=== PATIENT | female | born 1935 | race Caucasian/White ===

== ENCOUNTER 2022-11-21 11:35 | Emergency (ER) | payer MEDICARE, BC, SELFPAY ==
[2022-11-21 11:59] VITALS: BP 171/90; PULSE 58; RESP 18; TEMP 36.9; O2SAT 97; BMI 28.3
[2022-11-21 12:16] LABS: Appearance Urine Cloudy (Clear); Bilirubin Urine Negative (Negative); Blood Urine 3+ (Negative); Color Urine Yellow (Yellow); Glucose Urine Negative (Negative); Ketones Urine Negative (Negative); Leukocyte Esterase Urine 3+ (Negative); Nitrite Urine Positive (Negative); Protein Urine 3+ (Negative); Specific Gravity Urine >= 1.030 (1.000-1.030); Urobilinogen Urine 0.2 (0.2-1.0)
--- NOTE | 2022-11-21 12:18 | ED.GENADULT ---
HPI - General Adult General Chief complaint: Urogenital Problems, Female Stated complaint: Tampon stuck in vagina Time Seen by Provider: 11/21/22 11:38 Source: patient and family Mode of arrival: ambulatory Limitations: no limitations History of Present Illness HPI narrative: 87-year-old female coming in today concerned about a retained tampon. Patient states that she has been having bleeding from her either bladder or vagina, she is unaware. It was suggested to her that she placed a tampon in to see if there would be any blood on the tampon. Patient states that she placed a tampon in 2 days ago and has not been able to retrieve it. She states that she saw ?a few tampon strings on the toilet paper after she wiped, but she had not looked in the toilet to see if she saw a tampon. She states that after she placed a tampon she continued to have bleeding which she sees as spots on the pads that she wears. She does complain of suprapubic discomfort but that started prior to her inserting the tampon. She denies any vaginal discharge or strong odor. No fevers or chills. Patient does state that she has multiple UTIs and recurrent UTIs. She has been on many antibiotics but has not had anything for about a month. Related Data Previous Rx's Medication Instructions Recorded cephalexin 500 mg capsule 500 mg PO TID 5 days #15 caps 11/21/22 Allergies Allergy/AdvReac Type Severity Reaction Status Date / Time bupropion [From Wellbutrin] Allergy Verified 11/21/22 11:59 Review of Systems Status of ROS: Reports: 10 or more systems reviewed and unremarkable except as noted in History and below [facility] Social History Smoking Status: Never smoker Do you use any of these nicotine containing products: None Second hand tobacco smoke exposure: No How often do you have a drink containing alcohol: 2-4 times a month How many standard drinks containing alcohol do you have on a typical day: 1 or 2 AUDIT-C Alcohol total score: 2 Non-prescribed substance use: denies use service: No Exam Narrative: Exam Narrative: Well-nourished well-developed patient in no acute distress. Alert and oriented. Answers questions appropriately. Mood and affect are appropriate. Thoughts are goal oriented and rational. No tangential or magical thinking noted. Patient speaks in full sentences without needing to catch their breath. HEENT: Normocephalic atraumatic. Pupils are equally round reactive to light. Extraocular muscles are intact. Conjunctivae are moist without any icterus noted. Abdomen: Soft and nontender nondistended with normal bowel sounds. Extremities: Bilateral lower extremities are without edema. Skin: Well perfused without any obvious rashes. : Normal external female genitalia, she does have vaginal atrophy. Vaginal introitus is very tight. I can insert only 1 finger into the vaginal introitus I can feel all vaginal kaufman as well as her cervix. I cannot reach in the posterior cervical fornix. I do not feel any foreign objects in the vaginal canal. Const: Vital Signs, click to edit/add: Vital Signs - 24 hr 11/21/22 11:59 Temperature 98.4 F Pulse Rate [Pulse Oximeter] 58 L Respiratory Rate 18 Blood Pressure [Ri ght Forearm] 171/90 H Pulse Oximetry 97 Oxygen Delivery Me thod Room Air Course Course Hospital Course: 87-year-old female with a question of a retained tampon. I think that the tampon likely fell out as I do not feel any foreign objects in the vaginal canal today. We did discuss placement of the speculum however patient will likely need sedation for this as the vaginal introitus is very small. There is a very small possibility that it stuck in the posterior fornix but this would be unlikely. We discussed that if she experiences vaginal discharge, pain with strong odor she has follow-up with her OBGYN. As far as her suprapubic discomfort and hematuria, her urinalysis looks very positive for a UTI. At this time will go ahead and start her on Keflex. She will follow up with her primary care provider this coming week. Vital Signs Vital signs: Initial Vital Signs Temperature 98.4 F 11/21/22 11:59 Temperature Source Temporal Artery Scan 11/21/22 11:59 Pulse Rate 58 L 11/21/22 11:59 Pulse Rhythm 11/21/22 11:59 Respiratory Rate 18 11/21/22 11:59 Blood Pressure 171/90 H 11/21/22 11:59 Blood Pressure Mean 117 11/21/22 11:59 Blood Pressure Position Supine 11/21/22 11:59 Pulse Oximetry 97 11/21/22 11:59 Oxygen Delivery Method 11/21/22 11:59 Vital Signs Temperature 98.4 F 11/21/22 11:59 Pulse Rate 58 L 11/21/22 11:59 Respiratory Rate 18 11/21/22 11:59 Blood Pressure 171/90 H 11/21/22 11:59 Pulse Oximetry 97 11/21/22 11:59 Oxygen Delivery Method 11/21/22 11:59 Temperature 98.4 F 11/21/22 11:59 Pulse Rate 58 L 11/21/22 11:59 Respiratory Rate 18 11/21/22 11:59 Blood Pressure 171/90 H 11/21/22 11:59 Pulse Oximetry 97 11/21/22 11:59 Oxygen Delivery Method 11/21/22 11:59 Medical Decision Making MDM Narrative Medical decision making narrative: 87-year-old female with concerns about a retained tampon-I did not find any foreign objects in the vaginal canal. Hematuria-I do think that this patient has a UTI given her hematuria and suprapubic discomfort. Will treat with Keflex. Lab Data Lab results reviewed: Yes I reviewed the patient's lab results Labs: Lab Results 11/21/22 Range/Units 12:04 Urine Color Yellow (Yellow) Urine Appearance Cloudy A (Clear) Urine pH 7.0 (5.0-8.5) Ur Specific [place] >= 1.030 (1.000-1.030) Urine Protein 3+ A (Negative) Urine Glucose (UA) Negative (Negative) Urine Ketones Negative (Negative) Urine Blood 3+ A (Negative) Urine Nitrite Positive A (Negative) Urine Bilirubin Negative (Negative) Urine Urobilinogen 0.2 (0.2-1.0) Ur Leukocyte Esterase 3+ A (Negative) Urine RBC 25-50 A (0-2) Urine WBC >100 A (0-5) Ur Squamous Epith Cells Moderate A (None-Few) Urine Bacteria Many A (None) Discharge Plan Discharge Clinical Impression: Urinary tract infection Patient Disposition: Home, Self-Care Condition: Stable Additional Instructions: Take antibiotics as prescribed. Follow-up with her primary care provider this coming week. Follow-up with OBGYN if you develop any vaginal discharge or strong odor. Prescriptions: New cephalexin 500 mg capsule 500 mg PO TID 5 Days Qty: 15 0RF Stand Alone Forms: [email or web address] Info Instructions
[2022-11-21 12:35] LABS: Bacteria Urine Many; RBC Urine 25-50 (0-2); Squamous Epithelial Cell Urine Moderate (None-Few); WBC Urine >100 (0-5)
--- NOTE | 2022-11-25 03:09 | ED.NURSE ---
Patient called and left [facility] with part time receptionist wondering if her urine culture results indicated she needed a new anbx. Dr. Zaman to f/u with patient.
== END 2022-11-21 13:05 | disposition home or self-care (01) ==
PROVIDERS: Emergency Provider Family Medicine
DX: N39.0 Urinary tract infection, site not specified (principal)
CPT/HCPCS: 81001; 87086; 87186; 99283; 99284

== ENCOUNTER 2024-09-10 15:15 | Emergency (ER) | payer MEDICARE, BC, SELFPAY ==
[2024-09-10 15:24] VITALS: BP 141/116; PULSE 114; RESP 16; TEMP 36.4; O2SAT 95; BMI 26.6
--- NOTE | 2024-09-10 15:31 | ED.GENADULT ---
HPI - General Adult General Chief complaint: Back Injury/Pain Stated complaint: right side sciatica pain Time Seen by Provider: 09/10/24 15:33 History of Present Illness HPI narrative: Pt reports that new lower back pain started yesterday. Starts in Right buttocks area and shoots down right leg. Rates pain 4/10 currently. Worse with movement and position change . Pt suspects sciatica. Pt has known a-fib , is on thinners. 89-year-old woman presenting to the emergency department with pain that she suspects is radiating down her leg, right side from her back. No known trauma. Maybe 3 days ago started to have some pain that seems to go down the middle of her ?maggie radiating down the back of her thigh she thinks past her knee involving her calf and then to her ankle. Little unsure as to whether it is a truly the back of the leg but it feels relatively continuous. She describes shooting and constant pain. It is worse when she goes to stand up and walk and as she walks it might faded a little bit but still present. Sitting down at in current position on the bed is not experiencing much in the way of pain. It is really worse with movements, ambulating. She does get spasms of the muscles of her upper back historically and is unsure whether not this might be related. Does not have known disc disease in the back. Has not tried any particular treatments. Related Data Home Medications ?Medication ?Instructions ?Recorded ?Confirmed apixaban 2.5 mg tablet (Eliquis) 2.5 mg PO BID 09/10/24 09/10/24 cyclobenzaprine 10 mg tablet 10 mg PO 3XD 09/10/24 09/10/24 methimazole 5 mg tablet 5 mg PO DAILY 09/10/24 09/10/24 verapamil 120 mg tablet,extended 120 mg PO DAILY 09/10/24 09/10/24 release Allergies Allergy/AdvReac Type Severity Reaction Status Date / Time bupropion (From Wellbutrin) Allergy Verified 11/21/22 11:59 Review of Systems Status of ROS: Reports: 6 or more systems reviewed and unremarkable except as noted in History and below PFSH PFSH Social History Smoking Status: Never smoker Do you use any of these nicotine containing products: None Second hand tobacco smoke exposure: No How often do you have a drink containing alcohol: 2-4 times a month How many standard drinks containing alcohol do you have on a typical day: 1 or 2 AUDIT-C Alcohol total score: 2 Non-prescribed substance use: denies use service: No Exam Narrative: Exam Narrative: Pleasant. NAD. Transitions carefully, gingerly from the bed. Is breathing easily. There is some mild kyphosis of the upper back. No midline back tenderness. No SI joint area tenderness. She does not have buttock/piriformis area pain. There is clearly pain to palpation about the right greater trochanter. Some pain in the area of the pes anserine bursa pes anserine bursa of the right knee. Does not have pain otherwise along the IT band. Strong and equal patellar DTRs bilaterally. Good strength to extension of the leg and flexion of the thigh. Negative straight leg raise. Good strength to dorsiflexion of the ankle. Palpable crepitus to extension flexion of the left knee ?my bad knee?. Const: Vital Signs, click to edit/add: Vital Signs - 24 hr 09/10/24 15:24 Temperature 97.6 F Pulse Rate [Pulse Oximeter] 114 H Respiratory Rate 16 Blood Pressure [Ri ght Upper Arm] 141/116 H Pulse Oximetry 95 Oxygen Delivery Me thod Room Air Documenting provider has reviewed patient's vital signs: yes Course Vital Signs Vital signs: Initial Vital Signs Temperature 97.6 F 09/10/24 15:24 Temperature Source Temporal Artery Scan 09/10/24 15:24 Pulse Rate 114 H 09/10/24 15:24 Pulse Rhythm Irregular 09/10/24 15:24 Respiratory Rate 16 09/10/24 15:24 Blood Pressure 141/116 H 09/10/24 15:24 Blood Pressure Mean 124 H 09/10/24 15:24 Blood Pressure Position Sitting 09/10/24 15:24 Pulse Oximetry 95 09/10/24 15:24 Oxygen Delivery Method Room Air 09/10/24 15:24 Vital Signs Temperature 97.6 F 09/10/24 15:24 Pulse Rate 114 H 09/10/24 15:24 Respiratory Rate 16 09/10/24 15:24 Blood Pressure 141/116 H 09/10/24 15:24 Pulse Oximetry 95 09/10/24 15:24 Oxygen Delivery Method Room Air 09/10/24 15:24 Temperature 97.6 F 09/10/24 15:24 Pulse Rate 114 H 09/10/24 15:24 Respiratory Rate 16 09/10/24 15:24 Blood Pressure 141/116 H 09/10/24 15:24 Pulse Oximetry 95 09/10/24 15:24 Oxygen Delivery Method Room Air 09/10/24 15:24 Medical Decision Making MDM Narrative Medical decision making narrative: I would suspect greater trochanteric bursitis and some degree of iliotibial band syndrome as indicated by tenderness in the pes anserine bursal area. Does not appear to be clearly having sciatic type pain. This may have been exacerbated by compensatory movements from the left knee. As I begin to discuss this diagnosis and likely course of treatment, she wonders, as per conversation with her son, whether not on x-ray would be warranted. We can proceed with a right hip x-ray as this is the reproducible area of discomfort. I suppose it is possible there is some sort of an avulsion or more subtle fracture otherwise. Pending imaging at this time. X-rays of the right hip and pelvis reviewed by me show osteoarthritic changes, osteopenia and some degree of constipation/well formed stool. Do not see acute bony abnormality or fracture. Returned to discuss these images with Komal and her daughter with whom she lives. I believe trochanteric bursitis and iliotibial band syndrome in some form is most likely explanation for pain peer More difficult to treat given anticoagulation status with Eliquis See patient discharge plan for further discussion. Medical Records Medical records reviewed: Yes I reviewed the patient's medical records Discharge Plan Discharge Clinical Impression: Leg pain, right, Bursitis, trochanteric Additional Instructions: See handout on some stretches that you can begin for trochanteric bursitis. Note that this overlaps somewhat with is the tibial band syndrome. I look at this as a continuum. As I said you also seem to have some inflammation in the area of the pes anserine bursa. To try to take some of the pressure off, consider using a walker more regularly. I would message your primary care provider potentially for a referral to physical therapy as they can also be helpful. I like those ice bags with screw top lids. Can buy 9 in [employer] in [employer]. Fill with ice and water. Try to ice your hip 2-3 times daily over the next few days at least. While I am unsure of the effect in this diagnosis, as an anti-inflammatory that you could take considering your anticoagulation status, prednisone might be helpful. I am prescribing this prednisone and a small quantity of Roxton from [employer]. Keep in mind that each tablet of Roxton contains 325 mg of acetaminophen. You can generally take up to 1000 mg of acetaminophen per dose. Roxton also contains hydrocodone, an opiate that can make you prone to being fatigued, weak and/or constipated. If you take Roxton, on those days consider taking 1-2 tablets senna containing product to keep the bowels moving. Prescriptions: No Action verapamil 120 mg tablet extended release 120 mg PO DAILY cyclobenzaprine 10 mg tablet 10 mg PO 3XD methimazole 5 mg tablet 5 mg PO DAILY Eliquis 2.5 mg tablet 2.5 mg PO BID Follow Up/Referrals: Provider,Not a Local [Primary Care Provider] - Stand Alone Forms: [employer] Info Instructions
--- NOTE | 2024-09-10 15:45 | CRLHL7_ITS ---
For Patients: As a result of the Century Cures Act, medical imaging exams and procedure reports are released immediately into your electronic medical record. You may view this report before your referring provider. If you have questions, please contact your health care provider. INDICATION: Great trochanter pelvic hip pain, Greater trochanteric area pain TECHNIQUE: Pelvis radiograph, Hip radiograph 3 views right COMPARISON: None FINDINGS: Bone: No acute fractures or aggressive bone lesions are identified. Moderate diffuse osteopenia is noted. Joint: The hip joints are unremarkable. The visualized sacroiliac joints are unremarkable in appearance. The pubic symphysis is normal in appearance. Soft tissue: Unremarkable. No radiopaque foreign bodies are seen. IMPRESSION: 1. No acute osseous injuries or abnormalities are noted. Dictated by: Nehemiah Read MD @ 09/10/2024 16:29:05 (Electronically Signed)
--- OUTSIDE RECORDS SUMMARY | 2024-09-10 16:18 | XMS_ITS | Clinical Summary ---
Author Organization [facility] Address [address] [place] [address] Care Team Providers Care Chief Optometry Service Name Role Phone Elsewhere, Pcp Primary Care Provider Unavailabl e Source Comments Patient records contain information from all sites at [facility]. For routine questions regarding patient records, call [phone] during business hours, M-F 8:00 AM - 5:00 PM Central Time. Record requests for emergency care only can be directed to [phone] at any time.[facility] Allergies Active Allergy Reactions Criticality Noted Date Comments Bupropion Hcl Other (see comments) 08/31/2022 Shaking Ciprofloxacin GI intolerance Low 02/17/2023 Asomnia Other reaction(s): Insomnia Medications * This document contains information received from the source organization and may not represent a complete record from that organization. estradioL (ESTRACE) 0.1 mg/g (0.01%) vaginal cream PLACE 2 GRAMS VAGINALLY 2 TIMES A WEEK 1 Active ipratropium (ATROVENT) 21 mcg (0.03 %) nasal spray Administer 1 spray into each nostril daily. Use prior to the major meal of the day 90 mL 3 2 Active Additional Information Patient taking differently:1 spray each nostrilAs needed, Use prior to the major meal of the day, Informant: Child, Reported on 08/06/2024 pregabalin (LYRICA) 25 mg capsule Take 25 mg by mouth as needed. Active acetaminophen (TYLENOL) 500 mg capsule Take 1,000 mg by mouth as needed for pain. Active DME CPAPIndications :Apnea Sleep Obstructive DME Order 1 each 2 Active Additional Information Patient taking differently: (No instructions reported), Informant: Self, Reported on 08/06/2024 methenamine (HIPREX) 1 gram tablet Take 1 g by mouth 2 (two) times a day. 2 Active magnesium 200 mg tablet Take 200 mg by mouth as needed. Active calcium citrate/vitamin D3 (CITRACAL + D ORAL) Take 1 tablet by mouth 2 (two) times a day. Calcium Citrate 400 mg-Vitamin D 500 units per tablet. Active cranberry fruit extract (THERACRAN ORAL) Take 500 mg by mouth daily. Active Lactobacillus acidophilus (PROBIOTIC ORAL) Take 1 tablet by mouth 2 (two) times a day. Garden of Life Probiotic Urinary Tract tablet. Active ascorbic acid (CHEWABLE VITAMIN C ORAL) Take 4,000-6,000 mg by mouth 2 (two) times a day. Take 8-12 gummy chews twice daily. Total dose of 4,000-6,000 mg daily. Alternates with a harder capsule form of the same dosage Active lidocaine (SALONPAS) 4 % adhesive patch,medicated Apply 1 patch topically as needed (upper back pain). Active fluticasone propionate (FLONASE) 50 mcg/actuation nasal sprayIndication s:Drip Post Nasal,Chronic Cough Administer 2 sprays into each nostril daily. 16 g 11 3 Active Additional Information Patient taking differently:2 spray each nostrilAs needed, Informant: Child, Reported on 08/06/2024 apixaban (ELIQUIS) 2.5 mg tablet Take 1 tablet (2.5 mg total) by mouth 2 (two) times a day. 60 tablet 3 3 Active methIMAzole (TAPAZOLE) 5 mg tablet Take 1 tablet (5 mg total) by mouth daily. 90 tablet 3 3 Active Additional Information Patient taking differently: 2.5 mgoral,(No frequency reported), 2.5MG 2X TIMES WEEKLY, Informant: Self, Reported on 02/24/2024 nadoloL (CORGARD) 40 mg tablet Take 1 tablet (40 mg total) by mouth daily. 90 tablet 3 3 Active LORazepam (ATIVAN) 0.5 mg tablet Take 0.5 mg by mouth 3 (three) times a day as needed. 3 Active cyclobenzaprine (FLEXERIL) 10 mg tablet Take 10 mg by mouth 3 (three) times a day as needed for muscle spasms. 3 Active light mineral oil/min oil/PF (RETAINE MGD, PF, OPHT) Administer 1 drop into affected eye(s) daily. Active vibegron (Gemtesa) 75 mg tablet Take 75 mg by mouth. 3 Active verapamiL (Calan-SR) 120 mg ER tablet TAKE 1 TABLET(120 MG) BY MOUTH DAILY 90 tablet 3 4 Active estradioL (Estrace) 0.1 mg/g (0.01%) vaginal cream Insert 1 g into the vagina 2 (two) times a week. 42.5 g 4 4 06/18/20 25 Active trospium (Sanctura) 20 mg tablet Take 1 tablet (20 mg total) by mouth 2 (two) times a day before morning and evening meals. 180 tablet 3 4 06/15/20 25 Active Additional Information Patient not taking.Reported on 08/06/2024 Hospital, Clinic, or Other Facility Administered Medication Ordered Dose Route Frequency Start Date End Date Status estrogens (conjugated) 1 g (0.625 mg/gram) vaginal cream 1 g (PREMARIN)Indications:Infec tion Urinary Tract Recurrent 1 g vaginal Once 08/21/2021 Active Active Problems Patient Care Coordination No te Formatting of this note migh t be different from the original. [facility] Colon Cancer Screening Last colon screen: Colonoscopy Year: 2015 First Degree Relative with Cancer: No Prep: Unknown - previous procedure completed at [facility] but prep used is unavailable Complex Suite: Unknown Results: Unknown Next Colon screen: N/A Breast Cancer Screening Last mammogram: 2022 Screening Mammogram Results: Normal Future supplemental Imaging: No Increased Breast Density: No History: Cancer First Degree Relative with Cancer: Unknown Next Breast Screen: Annual Mammogram Cervical Cancer Screening Last Pap: Unknown HPV Status: Unknown History of Abnormal Pap within the past 10 years?: Unknown Hysterectomy: Unknown KEVIN (Diethylstilbestrol) exposure: Unknown Next Pap: Unknown Bone Mineral Density Last BMD: Date: 2022 - Impression: Osteoporosis Next BMD: 2023 Cardiology: Last EC Next EC Lipoprotein (a): Not completed Coronary Calcium Scoring completed: Completed HIV Completed in 2015 HCV Completed in 2016 Problem Noted Date Diagnosed Date Keratoconjunctivitis Sicca Bilateral 08/22/2023 Meibomian Gland Dysfunction Right Eye Upper And Lower Eyelid 08/22/2023 Dry Eye Syndrome Bilateral 08/22/2023 Blepharitis Left 06/02/2022 Impaired Contrast Sensitivity 09/26/2020 Irritant Contact Dermatitis Due To Drugs In Contact With Skin 03/22/2019 Malignant Neoplasm Of Unspec ified Site Of Laterality Unknown Female Breast 12/18/2018 Overview (12/18/2018): Overview: has left mast and chemo, fine since Osteoporosis 12/01/2018 Overview (04/13/2024): DIAGNOSIS: Initial bone density 1997. FRACTURE: Right wrist fracture approximately 1990 Right elbow fracture around age 32 Hair line ankle fracture 2015 TREATMENT: Alendronate 10 mg daily 1997- discontinued due to bone pain Evista 60 mg daily [id number] Alendronate 35 mg weekly [id number] Alendronate 70 mg weekly 2005 -April 2011 Drug holiday April 2011 -June 2016 Alendronate 70 mg weekly June 2016-June 2021 Drug holiday 2508-9213 Reclast 04/06/23 PERTINENT ADDITIONAL MEDICAL HISTORY: Breast cancer age 42, s/p left mastectomy. No history of oral glucocorticoid therapy. Reports 2 glasses of wine per month. No history of tobacco use. 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 Komal presents with daughter Maryjo for follow up of osteoporosis, history summarized as above per last visit with Dr. Mac in 2019 ?? She has not had recurrent fractures in over 20 years; she is tolerating and compliant with Fosamax weekly ?? Her labs show appropriate calcium, vitamin D and Cr ?? We reviewed her BMD results, which are of bilateral hips, overall stable to minimally decreased, with lowest T score stable left hip -2.5 ?? We reviewed options to continue with oral Fosamax through this year then take drug holiday as it will complete her 5 year course vs drug holiday now ?? We discussed that there is also an IV Reclast available with assured absorption, that may offer convenience benefit and may help improve the BMD slightly as opposed to the slight decrease ?? At completion of this year's therapy (technically June 2021), she can certainly go back on drug holiday again and repeat BMD in 2 years ?? She is interested in IV Reclast as there are little 'down sides' to it, and may have even better absorption and hence efficacy may be improved over oral; though I suggested she has certainly done well with oral and has not fractured, thus I am reassured with Fosamax as well Plan ?? Continue 5th year of therapy through this year, then OK to take drug holiday ?? She would like to think about oral vs IV options before making final decision; we discussed risks with IV if she elects this, overall well tolerated ?? 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/27/2018 Incontinence Urinary Stress Female 02/09/2018 Hemorrhoids 11/18/2017 Impaired Fasting Glucose 10/26/2017 Caries Dental Nonrestorable 06/28/2017 Primary Osteoarthritis Knee Bilateral 12/21/2016 Atrophy Pelvic Floor 12/20/2016 Dysuria 12/20/2016 Ptosis Eyelid Bilateral 12/16/2016 Hypothyroidism Primary 10/19/2016 Dispersion Macular Pigment 07/28/2016 Glaucoma Open-Angle Mild Stage 06/15/2016 Edema Macular Cystoid Right 05/13/2016 Glaucoma Low Tension Mild Stage Bilateral 2015 Intraocular Lens Implant Status Post 04/15/2016 Hypertension Essential Primary 01/28/2016 Urinary Tract Infection (UTI)/Bacteriuria NOS Overview (12/13/2022): Diagnosis Maintenance Updates Urinary Urge Incontinence 01/06/2016 Keratosis Actinic 12/23/2014 Hallux Rigidus Right 12/20/2013 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 Cancer Skin Basal Cell Personal History 12/19/19 14 Keratosis Seborrheic 12/19/2013 Presbyopia 02/26/2013 Talipes Planovalgus 02/26/2013 Goiter Multinodular Nontoxic 07/06/2012 Cyst Renal 04/20/2011 Dysphonia 11/25/2010 Hoarseness 10/26/2010 Insomnia 04/28/2010 Bursitis Trochanteric Left 03/05/2010 Kyphosis Acquired 01/23/2010 Dysfunction Posterior Tibial Tendon 02/06/2009 Vaginitis Atrophic 06/02/2005 Hole Retinal Without Detachment Left 12/10/2004 Sleep Related Laryngospasm 12/09/2004 Apnea Sleep Obstructive 11/02/2004 Central Sleep Apnea Syndrome 11/02/2004 Hyperlipidemia 04/27/2004 Cancer Breast Personal History 04/27/2004 Osteopenia 04/27/2004 Abnormal Gait Non Orthopedic Resolved Problems Problem Noted Date Diagnosed Date Resolved Date Combined Forms Age Related Cataract Left Eye 0 12/25/2020 Overview (09/11/2020): Added automatically from request for surgery [id number] Age Related Nuclear Cataract Left Eye 2018 12/25/2020 Cataract Senile Mature 03/03/201612/25 Cataract 11/14/2009 12/25/2020 Encounters Date Type Department Care Team Description 08/19/2024 2:00 PM CDT Infusion Department of Infusion Therapy in [address] [address] Amisha Hughes APRN, C.N.P. Osteoporosis (Primary Dx) Discharge Disposition: Home or Self Care 08/06/2024 11:30 AM CDT Clinical Communication Virtual Review in [address] [phone] Pre-visit Intake 07/19/2024 10:30 AM CDT Infusion Department of Infusion Therapy in [address] [address] Amisha Hughes APRN, C.N.P. Osteoporosis (Primary Dx) Discharge Disposition: Home or Self Care 07/13/2024 Clinical Communication Department of Ophthalmology in [address] [phone] Asmita Davies M.D. 06/24/2024 1:00 PM CDT Infusion Department of Infusion Therapy in [address] [phone] Amisha Hughes APRN, C.N.P. Osteoporosis (Primary Dx) 06/15/2024 1:00 PM CDT Comprehensive Visit Department of Orthopedic Surgery in [place], [place] [address] [place] [phone] Emil Santoyo D.P.M. Pes Planus Left (Primary Dx); Pes Planus Right; Hallux Valgus Right; Valgus Hindfoot Left; Valgus Hindfoot Right; Claw Toe Acquired Left; Claw Toe Acquired Right; Laxity Ligament 06/15/2024 11:00 AM CDT Office Visit Department of Obstetrics and Gynecology, Division of Urogynecology in [place], [place] [address] [place] [phone] Cami Ramos P.A.-C. Urinary Urge Incontinence (Primary Dx); Postmenopausal Atrophic Vaginitis; Lichen Sclerosus; Atrophy Pelvic Muscle Disuse 06/15/2024 9:30 AM CDT Procedure visit Department of Urology in [place], [place] [address] [place] [phone] Janee Ashley M.D. Meyers, Tania L, L.P.N. Incontinence Urinary Stress And Urge [N39.46] (Primary Dx); Incontinence Urinary from Last 3 Months Immunizations Name Administration Dates Next Due HZV (ZOSTAVAX) 06/16/2007 Influenza Split 08/14/2012, 8,11/02/2006, 998 Influenza TIV (IM) 11/02/2004,10/23/2001 Influenza high dose QV(65 ye ars or older) (PF) 09/03/2022 Influenza, Seasonal, Injectable 11/02/2004,10/23 PCV13 01/06/2016 PPSV23 06/15/2004 Td (Adult), adsorbed 06/15/2004 Tdap 01/06/2016 influenza trivalent high dos e (HD)(PF) 07/29/2020,10/26/2010 influenza trivalent vaccine (6 months and older)(PF) 08/06/2009 influenza vaccine quad (FLUZONE/FLUARIX) (6 months and older)(PF) 10/15/2017 Family History Medical History Relation Name Comments Migraines Daughter Lucy Coronary artery disease Father Montrell Diabetes Father Montrell Type 2 Hypertension Mother Tonie Stroke Mother Tonie Tuberculosis Mother Tonie Diabetes Son Jr. Charles Type 1 Breast cancer Neg Hx Cervical cancer Neg Hx Endometrial cancer Neg Hx Glaucoma Neg Hx Macular degeneration Neg Hx Ovarian cancer Neg Hx Uterine cancer Neg Hx Vaginal cancer Neg Hx Relation Name Status Comments Daughter Lucy Father Montrell Mother Tnoie Soto Jr. Social History Tobacco Use Types Packs/Day Years Used Date Smoking Tobacco: Never Passive Smoke Exposure: Never Smokeless Tobacco: Never Tobacco Cessation:Counseling Given: Not Answered Alcohol Use Standard Drinks/Week Comments Not Currently 0 (1 standard drink = 0.6 oz pur e alcohol) 2 glasses of wine per month [facility] [employer] Answer Date Recorded In the past 12 months has th e Hum, gas, oil, or water [employer] threatened to shut off services in your home? No 02/26/2024 Humiliation, Afraid, Rape, and Kick questionnair e Answer Date Recorded Within the last year, have y ou been afraid of your partner or ex-partner? No 01/17/2023 Within the last year, have y ou been humiliated or emotionally abused in other ways by your partner or ex-partner? No Within the last year, have y ou been kicked, hit, slapped, or otherwise physically hurt by your partner or ex-partner? No 01/17/2023 Within the last year, have y ou been raped or forced to have any kind of sexual activity by your partner or ex-partner? No 01/17/2023 Social Connection and Isolat ion Panel [NHANES] Answer Date Recorded In a typical week, how many times do you talk on the phone with family, friends, or neighbors? Three times a week 01/17/2023 How often do you get togethe r with friends or relatives? Once a week 01/17/2023 How often do you attend chur or sikhism services? More than 4 times per year 01/17/2023 Do you belong to any clubs o r organizations such as jewish groups, unions, fraternal or athletic groups, or school groups? Yes 01/17/2023 How often do you attend meet ings of the clubs or organizations you belong to? More than 4 times per year 01/17/2023 Are you , , di vorced, , never , or living with a partner? 01/17/2023 AUDIT-C Answer Date Recorded Q1: How often do you have a drink containing alc ohol? 2-4 times a month 01/17/2023 Q2: How many drinks containi ng alcohol do you have on a typical day when you are drinking? 1 or 2 01/17/2023 Q3: How often do you have si x or more drinks on one occasion? Never 01/17/2023 Overall Financial Resource Strain (CARDIA) Answe r Date Recorded How hard is it for you to pa y for the very basics like food, housing, medical care, and heating? Not hard at all 01/17/2023 PHQ-2 Answer Date Recorded PHQ-2 Score 0 02/20/2024 [facility] - Occupational Stress Questionnaire Answer Date Recorded Do you feel stress - tense, restless, nervous, or anxious, or unable to sleep at night because your mind is troubled all the time - these days? Rather much 01/17/2023 Exercise Vital Sign Answer Date Recorde d On average, how many days pe r week do you engage in moderate to strenuous exercise (like a brisk walk)? 0 days 02/23/2024 On average, how many minutes do you engage in exercise at this level? 0 min 02/23/2024 Hunger Vital Sign Answer Date Recorded Within the past 12 months, y ou worried that your food would run out before you got the money to buy more. Never true 02/26/20 24 Within the past 12 months, t he food you bought just didn't last and you didn't have money to get more. Never true 02/26/2024 PRAPARE - Transportation Answer Date Re corded In the past 12 months, has l ack of transportation kept you from medical appointments or from getting medications? No 02/12 In the past 12 months, has l ack of transportation kept you from meetings, work, or from getting things needed for daily living? No 02/26/2024 Depression Answer Date Recor ded PHQ-9 Total Score (max 27) 4 03/02 Nutrition Answer Date Recorded On average, how many serving s of fruits and vegetables do you eat per day (serving size is equal to 1 cup or approximately the size of a tennis ball)? 0-2 02/23/2024 Dental Answer Date Recorded Dental: Regular Dentist Yes 08/19/20 Employment Answer Date Recorded Employment status Employed and actively working without restrictions 02/23/2024 Housing Stability Answer Date Recorded What is your living situation today? I have a [facility] place to live 02/26/2024 Education Answer Date Recorded What is the highest level of school you have completed or the highest degree you have received? 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 Gender Identity Female 03/24/2018 4:51 PM CDT Sexual Orientation Straight 03/24/2018 4: 51 PM CDT Last Filed Vital Signs Vital Sign Reading Time Taken Comments Blood Pressure 135/62 08/19/2024 2:14 PM CDT Pulse 66 08/19/2024 2:14 PM CDT Temperature 36.5 ??C (97.7 ??F) 08/19/2024 2:14 PM CD T Respiratory Rate 18 08/19/2024 2:14 PM CDT Oxygen Saturation 97% 02/25/2023 2:27 PM CDT Inhaled Oxygen Concentration - - Weight 70.8 kg (156 lb 1.4 oz) 04/20/2024 2:16 P M CDT Height 163.3 cm (5' 4.29) 04/20/2024 2:56 PM CD T Body Mass Index 26.55 04/20/2024 2:16 PM CDT Plan of Treatment Upcoming Encounters Date Type Department Care Team (Latest Contact Info) Description 09/20/2024 3:00 PM HOTHOUSE WORKER Infusion Department of Infusion Therapy in [place], [place] [address] [place] [address] [place] [address] Amisha Hughes, SOFTWARE DEVELOPMENT ANALYST, C.N.P. [address] [place] [address] 09/27/2024 9:15 AM HOTHOUSE WORKER Ancillary Procedure Department of Ophthalmology in [place], [place] [address] [place] [phone] Asmita Davies M.D. [address] [place] [phone] 09/27/2024 9:45 AM HOTHOUSE WORKER Ancillary Procedure Department of Ophthalmology in [place], [place] [address] [place] [phone] Asmita Davies M.D. [address] [place] [phone] 09/27/2024 10:00 AM HOTHOUSE WORKER Office Visit Department of Ophthalmology in [address] [phone] Asmita Davies M.D. [address] [place] [phone] 09/27/2024 1:00 PM HOTHOUSE WORKER Office Visit [facility] in [address] [phone] Oh Mckeon APRN, C.N.P., M.S.N. [address] [place] [phone] 10/18/2024 1:00 PM HOTHOUSE WORKER Comprehensive Visit Department of Obstetrics and Gynecology in [address] [phone] Teresa Espitia APRN, C.N.P., D.N.P. [address] [place] [phone] Health Maintenance Due Date Last Done Comments Zoster Vaccines (1 of 2) 08/11/2007 06/16/2007 RSV vaccine - (32-36 weeks) or 60+ years (1 - 1-dose 75+ series) 2012 COVID-19 Vaccine ( season) 2024 09/03/2022, 11/11/2021, 01/12/2021, Additional history exists Influenza Vaccine (#1) 2024 2, 07/29/2020, 10/15/2017, Additional history exists Fasting Glucose for Diabetes Screening 02/26/2025 02/27/2024, 02/27/2024, 01/11/2023, Additional history exists DTaP,Tdap,and Td Vaccines (2 - Td or Tdap) 01/06/2026 01/06/2016, 06/15/2004 Pneumococcal vaccine (65+ years) Completed 01/06/2016, 06/15/2004 Fall Risk Screen (Annual) Completed 08/19/2024 HPV Vaccines Aged Out No longer eligi ble based on patient's age to complete this topic Medical Devices Implanted Type Area Instrument Technician Device Identifier Shelf Expiration Date Model / Serial / Lot Conversions - Default Historical Implant Device Implanted:12/23 (Quantity not on file) Hardware e.g. pins/screws /rods Right: Wrist Description:Body Location - Wrist R. Device Status Text - Hardware. Ocular Lens Ocular Lens Right: Eye Description:Lens implant, se parate from the cataract lens. Lens Ja Ac 6.0 X 18.50 - Guillory [id number] Implanted:Qty: 1 on 04/14/2016 Ocular Lens Right: Other/Legacy - See Implant Description Ja Sesamea Description:Device Manufactu rer - Ja Surgical. Body Location - Other. Right. Device Status Text - [id number]. Lens Tcn Qub486 Bicnvx +18.5d - [id number] - [id number] Implanted:Qty: 1 on 10/08/2020 by Mike Solorzano M.D. at [facility] Ocular Lens Left: Eye [employer] (Previously STEVE) 08/21/2024 [id number] / [id number] / Procedures Procedure Name Priority Date/Time Associated Diagnosis Comments URO UROFLOW Routine 06/15/2024 9:30 AM CDT Incontinence Urinary HEMOGLOBIN A1C, B Routine 02/27/2024 10: 21 AM CDT Screening Examination Diabetes Mellitus from Last 3 Months or Most Recently Relevant to Health Maintenance Results * URO Uroflow (06/15/2024 9:30 AM CDT) Narrative Dante Robles M.D. - 06/15/2024 9:30 AM CDT Dante Robles M.D. ? 06/18/2024 ??9:38 AM REASON FOR VISIT: Uroflow: The patient here for a complex uroflow via calibrated electronic equipment and a residual urine check by ultrasound. FINDINGS: Peak flow 13 ml/sec Average flow 6 ml/sec Total voided volume 104 mls Residual urine 10 ml by ultrasound Valsalva flow pattern IMPRESSION: Low voided volume with low Q max and low postvoid residual. Janee Ashley M.D. UROLOGY ORDERABLES Final R esult * Hemoglobin A1c (02/27/2024 10:21 AM CDT) Hemoglobin A1c, B 5.5 4.0 - 5.6 % 02/27/2024 11:23 AM CDT DTL Blood (Blood, Venous) 02/27/2024 10:21 AM CDT 02/27/2024 10:34 AM CDT Janee Ashley M.D. LAB BLOOD ADD-ON Final Res ult [facility] [address] [place] [address], [facility] [address] [place] [address] from Last 3 Months or Most Recently Relevant to Health Maintenance Insurance MEDICARE [facility] Advance Directives For more information, please contact: [phone] Documents on File Type Date Recorded Patient Aquatic Instructor Expl anation Advance Directives 11/29/2017 12:00 AM Leg acy document. See document viewer. Advance Directives 05/31/2008 12:00 AM Leg acy document. See document viewer. Care Teams Chief Optometry Service Relationship Specialty Start Date End Date Elsewhere, Pcp PCP - General Internal Medicine 08/31/22
--- OUTSIDE RECORDS SUMMARY | 2024-09-10 16:19 | XMS_ITS ---
Author Organization [facility] Address [address] [place] [address] Care Team Providers Care Fiction And Nonfiction Prose Writer Name Role Phone Elsewhere, Pcp Primary Care Provider Unavailabl e Active Problems * This document contains information received from the source organization and may not represent a complete record from that organization. Patient Care Coordination No te Formatting of this note migh t be different from the original. FEMALE PREVENTIVE SERVICES Colon Cancer Screening Last colon screen: Colonoscopy Year: 2015 First Degree Relative with Cancer: No Prep: Unknown - previous procedure completed at [facility] but prep used is unavailable Complex Suite: [...] to bone pain Evista 60 mg daily [id number] Alendronate 35 mg weekly [id number] Alendronate 70 mg weekly 2005 -April 2011 Drug holiday April 2011 -June 2016 Alendronate 70 mg weekly June 2016-June 2021 Drug holiday 1010-1013 Reclast 04/06/23 PERTINENT ADDITIONAL MEDICAL HISTORY: Breast cancer age 42, s/p left mastectomy. No history of oral glucocorticoid therapy. Reports 2 glasses of wine per month. No history of tobacco use. Assessment & Plan (11/20/2020 8:59 AM MILIEU TECHNICIAN): ?? Komal presents with daughter Maryjo for [...] 04/27/2004 Osteopenia 04/27/2004 Abnormal Gait Non Orthopedic Current Oncology Plans No current plan information found. Other Current Plans romosozumab aqqg (EVENITY)* Plan Start Date:04/20/2024 Plan Provider:Amisha [place] APRN, C.N.P. Linked Problems Osteoporosis Treatment Medications No medications scheduled. zoledronic acid (RECLAST)* Plan Start Date:05/24/2024 Plan Provider:Amisha [place] APRN, C.N.P. Linked Problems Osteoporosis Treatment Medications No medications scheduled. Past Plans Radiation Treatments * No radiation treatments are documented for this patient in [facility]. Treatments may have been administered in another system. Lifetime Dose Tracking * Chemical Lifetime Dose Automatic Entry Manual Entr y Radiation 8.8 mGy 8.8 mGy 0 mGy Fluoro Time 4.5 minutes 4.5 minutes 0 minutes Resolved Problems Problem Noted Date Diagnosed Date Resolved Date Combined Forms Age Related Cataract Left Eye 0 12/25/2020 Overview (09/11/2020): Added automatically from request for surgery [id number] Age Related Nuclear Cataract Left Eye 2018 12/25/2020 Cataract Senile Mature 03/03/201612/25 Cataract 11/14/2009 12/25/2020
--- OUTSIDE RECORDS SUMMARY | 2024-09-10 16:19 | XMS_ITS | Encounter Summary ---
Author Organization [facility] Address [address] [place] [id number] Care Team Providers Care Ferryboat Operator Helper Name Role Phone Elsewhere, Pcp Primary Care Provider Unavailabl e Reason for Visit * Reason Comments Injections * Episode Based Medications (Routine) - Authorized Specialty Diagnoses / Procedures Referred By Contac t Referred To Contact Diagnoses Osteoporosis Amisha [place] APRN, C.N.P. [address] [place] [phone] Phone: tel: fax: Division of Endocrinology in [place], [place] [address] [place] [phone] Phone: tel: fax: Referral ID Status Reason Start Date Expiration Date V isits Requested Visits Authorized [id number] Authorized 04/13/2024 04/13/2026 99 99 Encounter Details Date Type Department Care Team (Late st Contact Info) Description 06/24/2024 1:00 PM CDT Infusion Department of Infusion Therapy in [place], [place] [address] [place] [phone] Amisha [place] APRN, C.N.P. [address] [place] [phone] Osteoporosis (Primary Dx) Social History Tobacco Use Types Packs/Day Years Used Date Smoking Tobacco: Never Passive Smoke Exposure: Never Smokeless Tobacco: Never Alcohol Use Standard Drinks/Week Comments Not Currently 0 (1 standard drink = 0.6 oz pur e alcohol) [address] [facility] Utilities Answer Date Recorded In the past 12 months has th e Mel[employer], gas, oil, or water company threatened to shut off services in your [...] 01/17/2023 How often do you attend chur ch or mosque services? More than 4 times per year 01/17/2023 Do you belong to any clubs o r organizations such as rastafari groups, unions, fraternal or athletic groups, or [...] Answer Date Recorded PHQ-2 Score 0 02/20/2024 [facility] - Occupational Stress Questionnaire Answer Date Recorded [...] Date Recorded Dental: Regular Dentist Yes 08/19/20 21 Employment Answer Date Recorded Employment status Employed and actively working without restrictions 02/23/2024 Housing Stability Answer Date Recorded What is your living situation today? I have a [facility] [place] [address] to live 02/26/2024 Education Answer Date Recorded What is the highest level of school you have completed or the highest degree you have received? Master's degree (e.g., MA, MS, Frances, MEd, COAL INSPECTOR, SRUTHI) 01/01/2020 Comments No Sex and Gender Information Value Date Recorded Sex Assigned at Female 03/24/2018 4:51 PM CDT Legal Sex Female 6:23 AM SAFETY DEPOSIT BOXES CUSTODIAN Gender Identity Female 03/24/2018 4:51 PM CDT Sexual Orientation Straight 03/24/2018 4: 51 PM CDT documented as of this encounter Last Filed Vital Signs Vital Sign Reading Time Taken Comments Blood Pressure 125/58 06/24/2024 1:40 PM CDT Pulse 70 06/24/2024 1:40 PM CDT Temperature 36.3 ??C (97.3 ??F) 06/24/2024 1:40 PM CD T Respiratory Rate 18 06/24/2024 1:40 PM CDT Oxygen Saturation - - Inhaled Oxygen Concentration - - Weight - - Height - - Body Mass Index - - documented in this encounter Plan of Treatment Upcoming Encounters Date Type Department Care Team (Latest Contact Info) Description 09/20/2024 3:00 PM SAFETY DEPOSIT BOXES CUSTODIAN Infusion Department of Infusion Therapy in [address] [place] [address] Amisha [place] APRN, C.N.P. [address] [place] [phone] 09/27/2024 9:15 AM SAFETY DEPOSIT BOXES CUSTODIAN Ancillary Procedure Department of Ophthalmology in [place], [place] [address] [place] [phone] Asmita Davies M.D. [address] [place] [phone] 09/27/2024 9:45 AM SAFETY DEPOSIT BOXES CUSTODIAN Ancillary Procedure Department of Ophthalmology in [place], [place] [address] [place] [phone] Asmita Davies M.D. [address] [place] [phone] 09/27/2024 10:00 AM SAFETY DEPOSIT BOXES CUSTODIAN Office Visit Department of Ophthalmology in [place], [place] [address] [place] [phone] Asmita Davies M.D. [address] [place] [phone] 09/27/2024 1:00 PM SAFETY DEPOSIT BOXES CUSTODIAN Office Visit [facility] in [place], [place] [address] [place] [phone] Oh Mckeon APRN, C.N.P., M.S.N. [address] [place] [phone] 10/18/2024 1:00 PM SAFETY DEPOSIT BOXES CUSTODIAN Comprehensive Visit Department of Obstetrics and Gynecology in [place], [place] [address] [place] [phone] Teresa Espitia APRN, C.N.P., D.N.P. [address] [place] [phone] documented as of this encounter Visit Diagnoses Diagnosis Osteoporosis- Primary documented in this encounter Administered Medications Inactive Administered Medications - up to 3 most recent administrations Medication Order MAR Action Action Date Dose Rate Site romosozumab-aqqg injection 210 mg (Evenity) 210 mg, subcutaneous, Once, On 06/24/24 at 1400, For 1 doseIndications:Osteopor osis Given 06/24/2024 2:10 PM CDT 210 mg Left Lower Abdomen documented in this encounter Additional Health Concerns Assessment Noted Time PHQ-9 Depression Total Score: 4 03/02/20 23 12:57 PM CDT documented as of this encounter Care Teams Ferryboat Operator Helper Relationship Specialty Start Date End Date Elsewhere, Pcp PCP - General Internal Medicine 08/31/22 documented as of this encounter
--- OUTSIDE RECORDS SUMMARY | 2024-09-10 16:19 | XMS_ITS | Encounter Summary ---
Author Organization [facility] Address [address] [place] [address] Care Team Providers Care Overhead Crane Operator Name Role Phone Elsewhere, Pcp Primary Care Provider Unavailabl e Encounter Details Date Type Department Care Team (Late st Contact Info) Description 2018 Historical Ophthalmology RST OPH Mike Solorzano M.D. [address] [place] [phone] Social History Tobacco Use Types Packs/Day Years Used Date Smoking Tobacco: Never Assessed Comments Unknown Sex and Gender Information Value Date Recorded Sex Assigned at Female 03/24/2018 4:51 PM CDT Legal Sex Female 6:23 AM STONE LAYOUT MARKER Gender Identity Female 03/24/2018 4:51 PM CDT Sexual Orientation Straight 03/24/2018 4: 51 PM CDT documented as of this encounter Progress Notes * Mike Solorzano M.D. - 2018 3:07 PM CST Eye General CHIEF COMPLAINT cataract evaluation left eye HISTORY OF PRESENT ILLNESS Left eye cataract is getting worse; cloudy vision; constant; moderate. IMPRESSION / REPORT / PLAN Consult requested by: Asmita Davies #1 Cataract, left eye Visually significant. Plan: She will call if wants to schedule....needs to see INSIDE SALES ENGINEER for consent. #2 Pseudophakia, right eye s/p ECCE/IOL Stable, needs to update Rx. 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 [address] [place] [phone] 09/27/2024 9:15 AM STONE LAYOUT MARKER Ancillary Procedure Department of Ophthalmology in [place], [place] [address] [place] [phone] Asmita Davies M.D. [address] [place] [phone] 09/27/2024 9:45 AM STONE LAYOUT MARKER Ancillary Procedure Department of Ophthalmology in [place], [place] [address] [place] [phone] Asmita Davies M.D. [address] [place] [phone] 09/27/2024 10:00 AM STONE LAYOUT MARKER Office Visit Department of Ophthalmology in [place], [place] [address] [place] [phone] Asmita Davies M.D. [address] [place] [phone] 09/27/2024 1:00 PM STONE LAYOUT MARKER Office Visit [facility] in [place], [place] [address] [place] [phone] Oh Mckeon APRN, C.N.P., M.S.N. [address] [place] [phone] 10/18/2024 1:00 PM STONE LAYOUT MARKER Comprehensive Visit Department of Obstetrics and Gynecology in [place], [place] [address] [place] [phone] Teresa Espitia APRN, C.N.P., D.N.P. [address] [place] [phone] documented as of this encounter Visit Diagnoses Not on filedocumented in this encounter Additional Health Concerns Infection Onset Date Last Indicated Resolved Time COVID19 Pending 10/06/2020 10/06/2020 10/06/2020 6 :04 PM STONE LAYOUT MARKER Assessment Noted Time PHQ-9 Depression Total Score: 0 12/05/19 18 6:52 AM STONE LAYOUT MARKER documented as of this encounter Care Teams Overhead Crane Operator Relationship Specialty Start Date End Date Elsewhere, Pcp PCP - General Internal Medicine 08/31/22 documented as of this encounter
--- OUTSIDE RECORDS SUMMARY | 2024-09-10 16:19 | XMS_ITS | Encounter Summary ---
Author Organization [facility] Address [address] [place] [address] Care Team Providers Care Studio Musician Name Role Phone Elsewhere, Pcp Primary Care Provider Unavailabl e Encounter Details Date Type Department Care Team (Late st Contact Info) Description 12/16/2016 Historical Ophthalmology RST OPH Asmita Davies M.D. [address] [place] [phone] Social History Tobacco Use Types Packs/Day Years Used Date Smoking Tobacco: Never Assessed Comments Unknown Sex and Gender Information Value Date Recorded Sex Assigned at Female 03/24/2018 4:51 PM CDT Legal Sex Female 6:23 AM MATHEMATICS PROFESSOR Gender Identity Female 03/24/2018 4:51 PM CDT Sexual Orientation Straight 03/24/2018 4: 51 PM CDT documented as of this encounter Progress Notes * Asmita Davies M.D. 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 Owens 03/30/13: patient at goal iop right on azopt bid, continue Dr. Gomez 05/2015 no drops in the left Switched to dorzolamide (Trusopt) by Dr. Davies due to high cost of Azopt, TID regime due to increase in IOP 02/25 Radha 24-2 05/28 RE shows early nasal changes with general reduction, LE scatter. Essentially stable both eyes. OCT 11/28: RE suspicious for thinning temporally. LE wnl. SS 04/19. RNFL 70/76. Both eyes stable. 05/28 GMS: Continue current drops dorzolamide [TRUSOPT] 2 % drops 1 drop ophthalmic three times a day-right eye., RTC 6 months with OCT #8 History of DVT and Factor V Leiden mutation per outside diagnosis 12/2015 Started Xarelto #9 Pseudophakia, right eye s/p ECCE/IOL, (04/14/16, Rashad) Doing well, though vision should be better based on anterior segment exam. Dr. Solorzano cut 1 suture @075 to reduce astigmatism today (05/13/16) Will recheck on Jun 15 to see if can improve further #10 Ptosis, both upper eyelids TESTING 12/16/2016 Spectralis OCT: right - irregular thickening stable vs 08/2016, possible tr ERM, slightly flattened foveal depression, outer retinal irregularities/possible drusen and OPL material/exudates in parafoveal region, no intraretinal fluid. No subretinal fluid associated with choroidal nevus just some overlying intraretinal cysts (stable). left - intact foveal depression, stable vs 08/2909/09/16 mfERG: diminished N1 responses and slightly prolonged implicit times, right more than left HVF 10-2: both poor reliability due to fixation losses. few scattered non- specific changes in both eyes Spectralis OCT: right - irregular thickening stable vs 06/15/16, possible tr ERM, slightly flattened foveal depression, outer retinal irregularities/possible drusen and OPL material/exudates in parafoveal region, no intraretinal fluid. No subretinal fluid associated with choroidal nevus just some overlying intraretinal cysts (stable vs 06/29). left - intact foveal depression. 06/15/16 HVF 24-2: low reliability OU due to fixation losses. right - probably has central deficits. left - appears full Cirrus OCT: RNFL Avg OD 71, borderline temporal, OS 81, normal quadrants; GCL right has significantthinning especially temporally. left - normal. Spectralis OCT: right - irregular thickening slightly decreased vs 05/13/16, possible tr ERM, slightly flattened foveal depression, outer retinal irregularities/possible drusen in parafoveal region, no intraretinal fluid. No subretinal fluid associated with choroidal nevus. left - intact foveal depre ssion. FAF: right - macula has a few slightly hyperAF slots, large nevus nasal to ON is mainly hypoAF witha few relative hyperAF spots within and a hyperAF border. left - unremarkable FA transit right. first frame with dye 33sec, transit completed by 48 sec. (delay in arm to eye?), early hyperfluorescence in central macula. the nevus late macula has mottled hyperfluorescent staining and a few focal areas of small vessel leakage. Nevus is largely a window defect without evidence of a separate circulation. the left eye is essentially unremarkable. 13 May 2016 color photos: confirm exam findings 13 May 2016 spectralis: right eye - distorted foveal contour with no SRF, no PED, no IRF. No macular hole. Might be slightly thicker vs 02/2013. Nevus with no overlying SRF. left eye: Normal foveal contour. No PED, no SRF, no IRF. 13 May 2016 US right eye: nevus 2.0 x 11.9 x 9.5mm @ 2:30 PE, low internal reflectivity, no extrascleral extension. LS 05 Jan 2016 US right eye: nevus 2.0 - 2.1 x 12.5 x 9.9mm @ 2:00 - 3:00 PE, low to medium reflectivity, no extrascleral extension. LS 29 May 2015 US right eye: nevus 2.0 x 12.0 x 10.1mm @ 2:00 - 3:00 PE, low to medium reflectivity, no extrascleral extension. LS 27 Nov 2014 US right eye: nevus 2.0 - 2.1 x 10.2 x 10.5mm @ 2:00 - 3:00 PE, low to medium reflectivity, no extrascleral extension. LS 25 Jun 2014 US Right Eye : nevus 2.0-2.1 x 12.1 x 10.6mm @ 3 PE, low to medium reflectivity. No extrascleral extension. ZK 20 Dec 2013 US right eye: nevus 2.0 x 12.0 x 10.3mm @ 3 PE, low to medium reflectivity, no extrascleral extension. LS 27 Jun 2013 US Right Eye : nevus 2.1 x 12.0 x 10.2mm @ 3 PE, low to medium reflectivity. No extrascleral extension. ZK 03/08/13 Spectralis: right eye - abnml foveal contour with some intraretinal irregularity, no macular hole; left eye - nml foveal contour; nevus OD - poor signal due to cataract, unable to determine if associated subretinal fluid 03/08/13 FAF: unable to interpret due to very poor signal 03/08/13 Color photos: confirm exam findings. Borders of nevus OD appear stable vs 2008 but unable to see all of the vascular landmarks 02/2013 due to cataract 08 Mar 2013 US : nevus 2.1 x 12.0 x 10.5mm @ 3 PE, low to medium reflectivity, no extrascleral extension. LS 02/11/2012 US right eye: nevus 2.1 - 2.2 x 12.2 x 10.5mm @ 3 PE, low reflectivity, no extrascleral extension. LS 04/28/2010 US right eye: 2.1 - 2.2 x 11.2 x 8.6mm 2:30 PE, low to medium reflectivity, no extrascleral extension. LS 09/22; US RE 2.1-2.2mm no extrascleral extension; JSP 03/19/09 US RE: 2.1 x 11.9 x 9.4 @ 2:30 PE includes shallow subretinal fluid, 1.8mm from choroid; lowto medium reflectivity, no extrascleral extension. LS 02/06/09 US RE:2.1 x 11.3 x 8.7mm @ 2:30 PE, includes probable very shallow subretinal fluid, mediumto low reflectivity, no extrascleral extension. LS 10/15/08 US RE: nevus: 2.0 - 2.1 x 11.6 x 8.5mm @ 2:30 PE, low to medium reflective, no extrascleral extension. LS 01/2008:nevus measured 1.9 - 2.0mm thickness x 9 x 7.8mm @ 2:30 PE, overlying subretinal fluid, medium to low reflectivity, no extrascleral extension. LS TODAY - 12/2016 10/16 mfERG was not significantly different between the two eyes and I felt that the 20/50 refraction for the right was reasonable given the residual astigmatism and the retinal changes (hx subfovealsubretinal fluid in right eye). So, we released the glasses Rx as per Dr. Solorzano. Since then she did get new glasses and corrected VA is improved OU today compared to last visit in Aug 2016. OCT is stable OU as well. Subjective visual symptoms in left eye likely related to cataract, but corrected VA is probably toogood to consider surgery for now since the left is still her better seeing eye. Saw Dr. Savage today for IOP; no changes were made in glaucoma gtts. She would like to see oculoplastics for evaluation of ptosis of upper lids, so I will enter the referral. 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 [address] [place] [phone] 09/27/2024 9:15 AM MATHEMATICS PROFESSOR Ancillary Procedure Department of Ophthalmology in [place], [place] [address] [place] [phone] Asmita Davies M.D. [address] [place] [phone] 09/27/2024 9:45 AM MATHEMATICS PROFESSOR Ancillary Procedure Department of Ophthalmology in [place], [place] [address] [place] [phone] Asmita Davies M.D. [address] [place] [phone] 09/27/2024 10:00 AM MATHEMATICS PROFESSOR Office Visit Department of Ophthalmology in [place], [place] [address] [place] [phone] Asmita Davies M.D. [address] [place] [phone] 09/27/2024 1:00 PM MATHEMATICS PROFESSOR Office Visit [facility] in [place], [place] [address] [place] [phone] Oh Mckeon, AZAEL, C.N.P., M.S.N. [address] [place] [phone] 10/18/2024 1:00 PM MATHEMATICS PROFESSOR Comprehensive Visit Department of Obstetrics and Gynecology in [place], [place] [address] [place] [phone] Teresa Espitia APRN, C.N.P., D.N.P. [address] [place] [phone] documented as of this encounter Visit Diagnoses Not on filedocumented in this encounter Additional Health Concerns Infection Onset Date Last Indicated Resolved Time COVID19 Pending 10/06/2020 10/06/2020 10/06/2020 6 :04 PM MATHEMATICS PROFESSOR documented as of this encounter Care Teams Studio Musician Relationship Specialty Start Date End Date Elsewhere, Pcp PCP - General Internal Medicine 08/31/22 documented as of this encounter
--- OUTSIDE RECORDS SUMMARY | 2024-09-10 16:19 | XMS_ITS | Encounter Summary ---
Author Organization [facility] Address [address] [place] [address] Care Team Providers Care Esol Teacher Assistant Name Role Phone Elsewhere, Pcp Primary Care Provider Unavailabl e Encounter Details Date Type Department Care Team (Late st Contact Info) Description 06/22/2017 Historical Ophthalmology RST OPH Erin Gomez O.D. [address] [place] [address] Social History Tobacco Use Types Packs/Day Years Used Date Smoking Tobacco: Never Assessed Comments Unknown Sex and Gender Information Value Date Recorded Sex Assigned at Female 03/24/2018 4:51 PM CDT Legal Sex Female 6:23 AM FIRST ASSISTANT Gender Identity Female 03/24/2018 4:51 PM CDT Sexual Orientation Straight 03/24/2018 4: 51 PM CDT documented as of this encounter Progress Notes * Erin Gomez O.D. 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 Cloudy and distorted; right eye; several years but getting worse. Denies ocular pain. GMS: hoping we could improve the vision on her RE to that of what she pin-holed today on the visualacuity. Distance blur. 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 I will call her. If no new problems on the Spec OCT, I will have them schedule a refraction for 08/10/[address] Davies--order placed. Call [phone] cell with results Called and left message 16:22 Spec OCT 06/2017: RE erm, no IRF or SRF. LE wnl. #4 History of sub-foveal fluid, right eye See #3 #5 Hx vascular decompensation post pole, right [...] day-right eye., RTC 6 months with OCT 06/30: IOP acceptable 06/30 Radha: RE early nasal step/arcs, 8/15 FL, no definite progression. LE non- specific scatter, 5/15 FL. 06/30 Will get Spec OCT, macular to see if any changes. I will call her. If no new problems on the Spec OCT, I will have them schedule a refraction for 08/10/[address] Davies--order placed. Call [phone] cell with results Called and left message 16:22 see # 3 Spec OCT 06/2017: RE erm, no IRF or SRF. LE wnl. 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 TESTING 12/16/2016 Spectralis OCT: right - irregular [...] 2:30 PE, low to medium reflective, no extrascleralextension. LS 01/2008:nevus measured 1.9 - 2.0mm thickness x 9 x 7.8mm @ 2:30 PE, overlying subretinal fluid, medium to low reflectivity, no extrascleral extension. LS TODAY - 12/201616 mfERG was not significantly different between the [...] upper eyelids CDM Reports - EYEGEN Id: [id number] Status: Fnl documented in this encounter Plan of Treatment Upcoming Encounters Date Type Department Care Team (Latest Contact Info) Description 09/20/2024 3:00 PM FIRST ASSISTANT Infusion Department of Infusion Therapy in [place], [place] [address] [facility] [place] [address] Amisha Hughes, AZAEL, C.N.P. [address] [place] [phone] 09/27/2024 9:15 AM FIRST ASSISTANT Ancillary Procedure Department of Ophthalmology in [place], [place] [address] [place] [phone] Asmita Davies M.D. [address] [place] [phone] 09/27/2024 9:45 AM FIRST ASSISTANT Ancillary Procedure Department of Ophthalmology in [place], [place] [address] [place] [phone] Asmita Davies M.D. [address] [place] [phone] 09/27/2024 10:00 AM FIRST ASSISTANT Office Visit Department of Ophthalmology in [place], [place] [address] [place] [address] Asmita Davies M.D. [address] [place] [phone] 09/27/2024 1:00 PM FIRST ASSISTANT Office Visit [facility] in [place], [place] [address] [place] [address] Oh Mckeon APRN, C.N.P., M.S.N. [address] [place] [phone] 10/18/2024 1:00 PM FIRST ASSISTANT Comprehensive Visit Department of Obstetrics and Gynecology in [place], [place] [address] [place] [address] Teresa Espitia APRN, C.N.P., D.N.P. [address] [place] [phone] documented as of this encounter Visit Diagnoses Not on filedocumented in this encounter Additional Health Concerns Infection Onset Date Last Indicated Resolved Time COVID19 Pending 10/06/2020 10/06/2020 10/06/2020 6 :04 PM FIRST ASSISTANT documented as of this encounter Care Teams Esol Teacher Assistant Relationship Specialty Start Date End Date Elsewhere, Pcp PCP - General Internal Medicine 08/31/22 documented as of this encounter
--- OUTSIDE RECORDS SUMMARY | 2024-09-10 16:19 | XMS_ITS | Encounter Summary ---
Author Organization [facility] Address [address] [place] [address] Care Team Providers Care Dinner Cook Name Role Phone Elsewhere, Pcp Primary Care Provider Unavailabl e Reason for Visit * Reason Comments Follow-up Follow-up * Outpatient (Routine) - Closed Specialty Diagnoses / Procedures Referred By Toby t Referred To Contact Orthopedic Surgery Diagnoses Pain Foot Right Janee Ashley M.D. 200 [place] [address] Phone: tel: fax: [facility] Referral ID Status Reason Start Date Expiration Date Visits Re quested Visits Authorized [id number] Closed 12/06/2023 06/06/2025 1 1 Encounter Details Date Type Department Care Team (Latest Contact Info) Description 06/15/2024 1:00 PM CDT Comprehensive Visit Department of Orthopedic Surgery in [place], [place] 200 [place] [address] Emil Santoyo, RadhaP.M. [address] [place] [phone] Pes Planus Left (Primary Dx); Pes Planus Right; Hallux Valgus Right; Valgus Hindfoot Left; Valgus Hindfoot Right; Claw Toe Acquired Left; Claw Toe Acquired Right; Laxity Ligament Social History Tobacco Use Types Packs/Day Years Used Date Smoking Tobacco: Never Passive Smoke Exposure: Never Smokeless Tobacco: Never Alcohol Use Standard Drinks/Week Comments Not Currently 0 (1 standard drink = 0.6 oz pur e alcohol) 2 glasses of wine per month [facility] Utilities Answer Date Recorded In the past 12 months has th e [employer] gas, oil, or water company threatened to [...] often do you attend chur ch or anabaptist services? More than 4 times per year 01/17/2023 Do you belong to any clubs o r organizations such as roman catholic groups, unions, fraternal or athletic groups, or [...] Answer Date Recorded PHQ-2 Score 0 02/20/2024 [facility] - Occupational Stress [...] Master's degree (e.g., MA, MS, Frances, MEd, DIRECTOR OF BUSINESS SERVICES, SRUTHI) 01/01/2020 Comments No Sex and Gender Information Value Date Recorded Sex Assigned at Female 03/24/2018 4:51 PM CDT Legal Sex Female 6:23 AM BREAKFAST SUPERVISOR Gender Identity Female 03/24/2018 4:51 PM CDT Sexual Orientation Straight 03/24/2018 4: 51 PM CDT documented as of this encounter Progress Notes * Emil Santoyo, D.P.M. - 06/15/2024 1:00 PM CDT SUBJECTIVE Pain reported: Site 1 Pain Score: 0 - No pain, (06/15/24 1323 : Emil Santoyo, D.P.M.) CHIEF COMPLAINT / REASON FOR VISIT Komal Romero is a 89 y.o. female who presents for evaluation of Follow- up of the Left Footand Follow-up of the Right Foot. HISTORY OF PRESENT ILLNESS Mrs. Romero presents for follow-up evaluation of her feet. She is here with her daughter today. Please see my 12/04/2021 clinical note. On her last visit with me, I had given her a prescription for new custom-molded orthotics. She states that she went to a facility, but the only thing that was done was that the orthotics were refabricated (new top covers and forefoot extensions). She states today that feet are doing well overall. She is not having any pain with them. She is wearing good supportive shoes and she is wearing her polypropylene orthotics that have been refurbished. She is wondering if there is anything else that would need to be done for her feet at this time. She is not doing a lot of walking and when she does walk, she is using a cane. The following portions of the patient's history were reviewed and updated as appropriate: allergies, current medications, family history, medical history, social history, surgical history, and problem list. PHYSICAL EXAM Ortho Exam Vessels: Dorsalis pedis pulses are palpable bilateral. Posterior tibial pulses are nonpalpable bilateral. Posterior tibial pulses are audible with a handheld Doppler. Neuro: Sharp sensation appears intact bilaterally. Minimal pressure sensation is intact. Skin: Only mild thickening of both toenails is noted bilaterally. Skin is somewhat thin on the dorsal aspects of the feet. No callus formation or corn formation to either foot. Musculoskeletal: There is diminished strength of the inverters and evertors of both feet. There appears to be adequate dorsiflexion plantar flexion strength. No appreciable strength is noted to the posterior tibial tendons against resistance. Hallux valgus is noted on the right, and clawing of the lesser toes is also noted. Ligamentous laxity is noted to both feet. Pes planus and hindfoot valgus is also noted bilaterally. Only slight tenderness is noted on palpation centrally to the sub 2nd through 4th metatarsal head regions bilateral. No evidence of fullness of the joints. Her custom polypropylene orthotics are well fitting to the contour of the feet, and there is adequate cushioning and m etatarsal support with these orthotics. 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 Romero on her efforts to use good quality supportive shoe gear and her custom-molded orthotics. They seem to be in good condition and do not need replacement. I have encouraged on continued supportive measures for her feet. At this point, I do not think she needs a new pair of inserts. I also do not think that she needs any adjustments on these orthotics. If she has any further problems with her feet in the future, I would be happy to see her again as needed. Patient dismissed. PATIENT EDUCATION Ready to learn, no apparent learning barriers were identified; learning preferences include listening. Explained the diagnosis and treatment plan; patient expressed understanding of the content. documented in this encounter Plan of Treatment Upcoming Encounters Date Type Department Care Team (Latest Contact Info) Description 09/20/2024 3:00 PM BREAKFAST SUPERVISOR Infusion Department of Infusion Therapy in [address] [place] [address] Amisha Hughes APRN, C.N.P. [address] [place] [phone] 09/27/2024 9:15 AM BREAKFAST SUPERVISOR Ancillary Procedure Department of Ophthalmology in [place], [place] [address] [place] [phone] Asmita Davies M.D. [address] [place] [phone] 09/27/2024 9:45 AM BREAKFAST SUPERVISOR Ancillary Procedure Department of Ophthalmology in [place], [place] [address] [place] [phone] Asmita Davies M.D. [address] [place] [phone] 09/27/2024 10:00 AM BREAKFAST SUPERVISOR Office Visit Department of Ophthalmology in [place], [place] [address] [place] [phone] Asmita Davies M.D. [address] [place] [phone] 09/27/2024 1:00 PM BREAKFAST SUPERVISOR Office Visit [facility] in [address] [phone] Oh Mckeon, AZAEL, C.N.P., M.S.N. [address] [place] [phone] 10/18/2024 1:00 PM BREAKFAST SUPERVISOR Comprehensive Visit Department of Obstetrics and Gynecology in [address] [phone] Teresa Espitia APRN, C.N.P., D.N.P. [address] [place] [phone] documented as of this encounter Visit Diagnoses Diagnosis Pes Planus Left- Primary Pes Planus Right Hallux Valgus Right Valgus Hindfoot Left Valgus Hindfoot Right Claw Toe Acquired Left Claw Toe Acquired Right Laxity Ligament documented in this encounter Additional Health Concerns Assessment Noted Time PHQ-9 Depression Total Score: 4 03/02/20 23 12:57 PM CDT documented as of this encounter Care Teams Dinner Cook Relationship Specialty Start Date End Date Elsewhere, Pcp PCP - General Internal Medicine 08/31/22 documented as of this encounter
--- OUTSIDE RECORDS SUMMARY | 2024-09-10 16:19 | XMS_ITS | Encounter Summary ---
Author Organization [facility] Address [address] [place] [phone] Care Team Providers Care Financial Advocate Name Role Phone Elsewhere, Pcp Primary Care Provider Unavailabl e Reason for Visit * Reason Comments Injections * Episode Based Medications (Routine) - Authorized Specialty Diagnoses / Procedures Referred By Contac t Referred To Contact Diagnoses Osteoporosis Amisha Hughes APRN, C.N.P. [address] [place] [phone] Phone: tel: fax: Division of Endocrinology in [place], [place] [address] [place] [phone] Phone: tel: fax: Referral ID Status Reason Start Date Expiration Date V isits Requested Visits Authorized [id number] Authorized 04/13/2024 04/13/2026 99 99 Encounter Details Date Type Department Care Team (Late st Contact Info) Description 08/19/2024 2:00 PM CDT Infusion Department of Infusion Therapy in [place], [place] [address] [facility] [place] [address] Amisha Hughes APRN, C.N.P. [address] [place] [phone] Osteoporosis (Primary Dx) Discharge Disposition: Home or Self Care Social History Tobacco Use Types Packs/Day Years Used Date Smoking Tobacco: Never Passive Smoke Exposure: Never Smokeless Tobacco: Never Alcohol Use Standard Drinks/Week Comments Not Currently 0 (1 standard drink = 0.6 oz pur e alcohol) 2 glasses of wine per month [facility] Utilities Answer Date Recorded In the past 12 months has e [employer], gas, oil, or water company threatened to [...] often do you attend chur ch or faith services? More than 4 times per year 01/17/2023 Do you belong to any clubs o r organizations such as episcopal groups, unions, fraternal or athletic groups, or [...] Answer Date Recorded PHQ-2 Score 0 02/20/2024 [facility]at ional Health - [...] Master's degree (e.g., MA, MS, Frances, MEd, HOSPITAL ADMISSIONS OFFICER, SRUTHI) 01/01/2020 Comments No Sex and Gender Information Value Date Recorded Sex Assigned at Female 03/24/2018 4:51 PM CDT Legal Sex Female 6:23 AM SENIOR BUSINESS OBJECTS DEVELOPER Gender Identity Female 03/24/2018 4:51 PM CDT Sexual Orientation Straight 03/24/2018 4: 51 PM CDT documented as of this encounter Last Filed Vital Signs Vital Sign Reading Time Taken Comments Blood Pressure 135/62 08/19/2024 2:14 PM CDT Pulse 66 08/19/2024 2:14 PM CDT Temperature 36.5 ??C (97.7 ??F) 08/19/2024 2:14 PM CD T Respiratory Rate 18 08/19/2024 2:14 PM CDT Oxygen Saturation - - Inhaled Oxygen Concentration - - Weight - - Height - - Body Mass Index - - documented in this encounter Plan of Treatment Upcoming Encounters Date Type Department Care Team (Latest Contact Info) Description 09/20/2024 3:00 PM SENIOR BUSINESS OBJECTS DEVELOPER Infusion Department of Infusion Therapy in [address] [place] [address] Amisha Hughes, AZAEL, C.N.P. [address] [place] [phone] 09/27/2024 9:15 AM SENIOR BUSINESS OBJECTS DEVELOPER Ancillary Procedure Department of Ophthalmology in [place], [place] [address] [place] [phone] Asmita Davies M.D. [address] [place] [phone] 09/27/2024 9:45 AM SENIOR BUSINESS OBJECTS DEVELOPER Ancillary Procedure Department of Ophthalmology in [place], [place] [address] [place] [phone] Asmita Davies M.D. [address] [place] [phone] 09/27/2024 10:00 AM SENIOR BUSINESS OBJECTS DEVELOPER Office Visit Department of Ophthalmology in [place], [place] [address] [place] [phone] Asmita Davies M.D. [address] [place] [phone] 09/27/2024 1:00 PM SENIOR BUSINESS OBJECTS DEVELOPER Office Visit [facility] in [place], [place] [address] [place] [phone] Oh Mckeon APRN, C.N.P., M.S.N. [address] [place] [phone] 10/18/2024 1:00 PM SENIOR BUSINESS OBJECTS DEVELOPER Comprehensive Visit Department of Obstetrics and Gynecology in [place], [place] [address] [place] [phone] Teresa Espitia APRN, C.N.P., D.N.P. [address] [place] [phone] documented as of this encounter Visit Diagnoses Diagnosis Osteoporosis- Primary documented in this encounter Administered Medications Inactive Administered Medications - up to 3 most recent administrations Medication Order MAR Action Action Date Dose Rate Site romosozumab-aqqg injection 210 mg (Evenity) 210 mg, subcutaneous, Once, On 08/19/24 at 1430, For 1 doseIndications:Osteopo rosis Given 08/19/2024 2:18 PM CDT 210 mg Right Lower Abdomen documented in this encounter Additional Health Concerns Assessment Noted Time PHQ-9 Depression Total Score: 4 03/02/20 23 12:57 PM CDT documented as of this encounter Care Teams Financial Advocate Relationship Specialty Start Date End Date Elsewhere, Pcp PCP - General Internal Medicine 08/31/22 documented as of this encounter
--- OUTSIDE RECORDS SUMMARY | 2024-09-10 16:19 | XMS_ITS | Encounter Summary ---
Author Organization [facility] Address [address] [place] [address] Care Team Providers Care Control Clerk Name Role Phone Elsewhere, Pcp Primary Care Provider Unavailabl e Encounter Details Date Type Department Care Team (Late st Contact Info) Description 08/10/2017 Historical Ophthalmology RST OPH Asmita Davies M.D. [address] [place] [phone] Social History Tobacco Use Types Packs/Day Years Used Date Smoking Tobacco: Never Assessed Comments Unknown Sex and Gender Information Value Date Recorded Sex Assigned at Female 03/24/2018 4:51 PM CDT Legal Sex Female 6:23 AM SHIP YARD ELECTRICAL PERSON Gender Identity Female 03/24/2018 4:51 PM CDT Sexual Orientation Straight 03/24/2018 4: 51 PM CDT documented as of this encounter Progress Notes * Asmita Davies M.D. - 08/10/2017 10:47 AM CDT Eye General CHIEF COMPLAINT Cystoid macular edema, HISTORY OF PRESENT ILLNESS WMS: No vision changes. IMPRESSION / REPORT / PLAN The following tests have been completed and need interpretation. 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 SH 10 Aug 2017 color photos: confirm exam findings 10 Aug 2017 Spectralis OCT: stable OU vs 12/2016. 12/16/2016 Spectralis OCT: right - irregular thickening [...] reflectivity, no extrascleral extension. LS TODAY - 07/2017 mfERG was not significantly different between the two eyes and I felt that the 20/50 refraction for the right was reasonable given the residual astigmatism and the retinal changes (hx subfovealsubretinal fluid in right eye). So, we released the glasses Rx as per Dr. Solorzano. At last visit with me 12/2016, corrected VA was improved OU. When she saw Dr. Gomez last monthVA OD was worse. New refraction today gets comparable results (20/60), with more astigmatism. US, color photos, OCT is stable OU. There was essentially no change in VA in the left eye with refraction, and she has been 20/40 in this eye before. Nonetheless, she would like to discuss cataract surgery in this eye again, so I will refer her backto Dr. Solorzano. Saw Dr. Gomez last month to follow IOP; no changes were made in glaucoma gtts. At last visit, I ordered a consultation with oculoplastics for evaluation of ptosis of upper lids, but it looks like it has not been scheduled so far. Follow up with [facility] to monitor the retina in 6 months (Spectralis OCT) If she has cataract surgery sooner, then I can see her about a month later. Next nevus US/optos/OCT will be in a year. DIAGNOSIS #1 Pigmented choroidal nevus right eye [...] upper eyelids CDM Reports - EYEGEN Id: [id number] Status: Fnl documented in this encounter Plan of Treatment Upcoming Encounters Date Type Department Care Team (Latest Contact Info) Description 09/20/2024 3:00 PM SHIP YARD ELECTRICAL PERSON Infusion Department of Infusion Therapy in [place], [place] [address] [facility] [place] [address] Amisha Hughes APRN, C.N.P. [address] [place] [phone] 09/27/2024 9:15 AM SHIP YARD ELECTRICAL PERSON Ancillary Procedure Department of Ophthalmology in [place], [place] [address] [place] [phone] Asmita Davies M.D. [address] [place] [phone] 09/27/2024 9:45 AM SHIP YARD ELECTRICAL PERSON Ancillary Procedure Department of Ophthalmology in [place], [place] [address] [place] [phone] Asmita Davies M.D. [address] [place] [phone] 09/27/2024 10:00 AM SHIP YARD ELECTRICAL PERSON Office Visit Department of Ophthalmology in [place], [place] [address] [place] [phone] Asmita Davies M.D. [address] [place] [phone] 09/27/2024 1:00 PM SHIP YARD ELECTRICAL PERSON Office Visit [facility] in [place], [place] [address] [place] [phone] Oh Mckeon APRN, C.N.P., M.S.N. [address] [place] [phone] 10/18/2024 1:00 PM SHIP YARD ELECTRICAL PERSON Comprehensive Visit Department of Obstetrics and Gynecology in [place], [place] [address] [place] [phone] Teresa Espitia, AZAEL, C.N.P., D.N.P. [address] [place] [phone] documented as of this encounter Visit Diagnoses Not on filedocumented in this encounter Additional Health Concerns Infection Onset Date Last Indicated Resolved Time COVID19 Pending 10/06/2020 10/06/2020 10/06/2020 6 :04 PM SHIP YARD ELECTRICAL PERSON documented as of this encounter Care Teams Control Clerk Relationship Specialty Start Date End Date Elsewhere, Pcp PCP - General Internal Medicine 08/31/22 documented as of this encounter
--- OUTSIDE RECORDS SUMMARY | 2024-09-10 16:19 | XMS_ITS | Encounter Summary ---
Author Organization [facility] Address [address] [place] [address] Care Team Providers Care Billing And Insurance Coordinator Name Role Phone Elsewhere, Pcp Primary Care Provider Unavailabl e Reason for Visit * Reason Onset Date Comments Pre-visit Intake 08/06/2024 Encounter Details Date Type Department Care Team (Latest Contact Info) Description 08/06/2024 11:30 AM CDT Clinical Communication Virtual Review in [place], [place] [address] [place] [address] Pre-visit Intake Social History Tobacco Use Types Packs/Day Years Used Date Smoking Tobacco: Never Passive Smoke Exposure: Never Smokeless Tobacco: Never Tobacco Cessation:Counseling Given: Not Answered Alcohol Use Standard Drinks/Week Comments Not Currently 0 (1 standard drink = 0.6 oz pur e alcohol) 2 glasses of wine per month [facility] Utilities Answer Date Recorded In the past 12 months has e [employer], gas, oil, or water [place] threatened to shut off services in your [...] How often do you attend chur or rastafarian services? More than 4 times per year 01/17/2023 Do you belong to any clubs o r organizations such as anglican groups, unions, fraternal or athletic groups, or [...] Answer Date Recorded PHQ-2 Score 0 02/20/2024 [facility] of Occupat ional Health - Occupational Stress [...] your living situation today? I have a [facility] place to live 02/26/2024 Education Answer Date Recorded What is the highest level of school you have completed or the highest degree you have received? Master's degree (e.g., MA, MS, Frances, MEd, GIS MANAGER, SRUTHI) 01/01/2020 Comments No Sex and Gender Information Value Date Recorded Sex Assigned at Female 03/24/2018 4:51 PM CDT Legal Sex Female 6:23 AM SURGICAL RESIDENT Gender Identity Female 03/24/2018 4:51 PM CDT Sexual Orientation Straight 03/24/2018 4: 51 PM CDT documented as of this encounter Plan of Treatment Upcoming Encounters Date Type Department Care Team (Latest Contact Info) Description 09/20/2024 3:00 PM SURGICAL RESIDENT Infusion Department of Infusion Therapy in [place], [place] [address] [facility] [place] [address] Amisha Hughes, COMPENSATION INTERN, C.N.P. [address] [place] [address] 09/27/2024 9:15 AM SURGICAL RESIDENT Ancillary Procedure Department of Ophthalmology in [place], [place] [address] [place] [phone] Asmita Davies M.D. [address] [place] [phone] 09/27/2024 9:45 AM SURGICAL RESIDENT Ancillary Procedure Department of Ophthalmology in [place], [place] [address] [place] [phone] Asmita Davies M.D. [address] [place] [phone] 09/27/2024 10:00 AM SURGICAL RESIDENT Office Visit Department of Ophthalmology in [place], [place] [address] [place] [phone] Asmita Davies M.D. [address] [place] [phone] 09/27/2024 1:00 PM SURGICAL RESIDENT Office Visit [facility] in [address] [phone] Oh Mckeon APRN, C.N.P., M.S.N. [address] [place] [phone] 10/18/2024 1:00 PM SURGICAL RESIDENT Comprehensive Visit Department of Obstetrics and Gynecology in [address] [phone] Teresa Espitia APRN, C.N.P., D.N.P. [address] [place] [phone] documented as of this encounter Visit Diagnoses Not on filedocumented in this encounter Additional Health Concerns Assessment Noted Time PHQ-9 Depression Total Score: 4 03/02/20 23 12:57 PM CDT documented as of this encounter Care Teams Billing And Insurance Coordinator Relationship Specialty Start Date End Date Elsewhere, Pcp PCP - General Internal Medicine 08/31/22 documented as of this encounter
--- OUTSIDE RECORDS SUMMARY | 2024-09-10 16:19 | XMS_ITS | Encounter Summary ---
Author Organization [facility] Address [address] [place] [address] Care Team Providers Care Export Packer Name Role Phone Elsewhere, Pcp Primary Care Provider Unavailabl e Encounter Details Date Type Department Care Team (Late st Contact Info) Description 02/09/2018 Historical Ophthalmology RST OPH Asmita Davies M.D. [address] [place] [address] Social History Tobacco Use Types Packs/Day Years Used Date Smoking Tobacco: Never Comments Unknown Sex and Gender Information Value Date Recorded Sex Assigned at Female 03/24/2018 4:51 PM CDT Legal Sex Female 6:23 AM ACID ADJUSTER Gender Identity Female 03/24/2018 4:51 PM CDT Sexual Orientation Straight 03/24/2018 4: 51 PM CDT documented as of this encounter Progress Notes * Asmita Davies M.D. - 02/09/2018 8:56 AM CDT Eye General CHIEF COMPLAINT recheck macular hole HISTORY OF PRESENT ILLNESS Patient here for recheck macular hole with photos. Patient states the vision in right >left eye is worsen. Patient denies ocular pain. WMS: She is hoping that there could be a way to improve vision in her right eye more since changingthe lens did not help as much as she had hoped. This is the reason she has not scheduled cataract surgery for her left eye yet. IMPRESSION / REPORT / PLAN The following tests have been completed and need interpretation. 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 Dr. 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 No significant change in irregular thickening in the right eye. 10 Aug 2017 right eye: nevus 2.0 x 11.7 x 9.mm @ 2:30 PE, low internal reflectivity, no extrascleral extension. 10 Aug 2017 color photos: confirm exam [...] reflectivity, no extrascleral extension. LS TODAY - 01/2018 10/16 mfERG was not significantly different between the two eyes and I felt that the 20/50 refraction for the right was reasonable given the residual astigmatism and the retinal changes (hx subfovealsubretinal fluid in right eye). So, we released the glasses Rx as per Dr. Solorzano. At 12/2016 visit with me, corrected VA was improved OU. When she saw Dr. Gomez in June 2017 VA OD was worse. At last visit 07/2017, new refraction yielded comparable results (20/60), with more astigmatism. She was unable to fill the Rx for several months due to family illnesses. today, VA with that Rx is not good. She saw Dr. Solorzano last month to discuss cataract surgery in the left eye again; he said she could schedule whenever she is ready. She would like to improve the right eye prior to pursuing surgery in the left. Otherwise, retina exam and OCT macula are stable OU today. Saw Dr. Gomez last month to follow IOP; no changes were made in glaucoma gtts. In 2017, I ordered a consultation with oculoplastics for evaluation of ptosis of upper lids, but itwas never scheduled due to the long waiting list. Revisit in the future. With regard to the refraction, I will ask Dr. Solorzano if she need corneal measurements in addition toa refraction. Follow up to monitor retina/nevus with US/optos/OCT in six months. 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 [address] [place] [phone] 09/27/2024 9:15 AM ACID ADJUSTER Ancillary Procedure Department of Ophthalmology in [place], [place] [address] [place] [phone] Asmita Davies M.D. [address] [place] [phone] 09/27/2024 9:45 AM ACID ADJUSTER Ancillary Procedure Department of Ophthalmology in [place], [place] [address] [place] [address] Asmita Davies M.D. [address] [place] [phone] 09/27/2024 10:00 AM ACID ADJUSTER Office Visit Department of Ophthalmology in [place], [place] [address] [place] [address] Asmita Davies M.D. [address] [place] [phone] 09/27/2024 1:00 PM ACID ADJUSTER Office Visit [facility] in [place], [place] [address] [place] [phone] Oh Mckeon APRN, C.N.P., M.S.N. [address] [place] [phone] 10/18/2024 1:00 PM ACID ADJUSTER Comprehensive Visit Department of Obstetrics and Gynecology in [place], [place] [address] [place] [address] Teresa Espitia, AZAEL, C.N.P., D.N.P. [address] [place] [phone] documented as of this encounter Visit Diagnoses Not on filedocumented in this encounter Additional Health Concerns Infection Onset Date Last Indicated Resolved Time COVID19 Pending 10/06/2020 10/06/2020 10/06/2020 6 :04 PM ACID ADJUSTER Assessment Noted Time PHQ-9 Depression Total Score: 0 12/05/19 18 6:52 AM ACID ADJUSTER documented as of this encounter Care Teams Export Packer Relationship Specialty Start Date End Date Elsewhere, Pcp PCP - General Internal Medicine 08/31/22 documented as of this encounter
--- OUTSIDE RECORDS SUMMARY | 2024-09-10 16:19 | XMS_ITS | Encounter Summary ---
Author Organization [facility] Address [address] [place] [address] Care Team Providers Care Butadiene Converter Helper Name Role Phone Elsewhere, Pcp Primary Care Provider Unavailabl e Encounter Details Date Type Department Care Team (Latest Contact Info) Description 07/13/2024 Clinical Communication Department of Ophthalmology in [place], [place] [address] [place] [address] Asmita Davies M.D. [address] [place] [address] Social History Tobacco Use Types Packs/Day Years Used Date Smoking Tobacco: Never Passive Smoke Exposure: Never Smokeless Tobacco: Never Alcohol Use Standard Drinks/Week Comments Not Currently 0 (1 standard drink = 0.6 oz pur e alcohol) 2 glasses of wine per month [facility] Utilities Answer Date Recorded In the past 12 months has [facility] [employer], gas, oil, or water [place] threatened to shut off services in your [...] How often do you attend chur or samaritan services? More than 4 times per year 01/17/2023 Do you belong to any clubs o r organizations such as yazidi groups, unions, fraternal or athletic groups, or [...] Answer Date Recorded PHQ-2 Score 0 02/20/2024 [facility] of Occupat ional Health - Occupational Stress [...] your living situation today? I have a [facility] place to live 02/26/2024 Education Answer Date Recorded What is the highest level of school you have completed or the highest degree you have received? Master's degree (e.g., MA, MS, Frances, MEd, CRUSHER WET GROUND MICA, SRUTHI) 01/01/2020 Comments No Sex and Gender Information Value Date Recorded Sex Assigned at Female 03/24/2018 4:51 PM CDT Legal Sex Female 6:23 AM IMMIGRATION OFFICER Gender Identity Female 03/24/2018 4:51 PM CDT Sexual Orientation Straight 03/24/2018 4: 51 PM CDT documented as of this encounter Plan of Treatment Upcoming Encounters Date Type Department Care Team (Latest Contact Info) Description 09/20/2024 3:00 PM IMMIGRATION OFFICER Infusion Department of Infusion Therapy in [place], [place] [address] [facility] [place] [address] Amisha Hughes, POST OFFICE MARKUP CLERK, C.N.P. [address] [place] [address] 09/27/2024 9:15 AM IMMIGRATION OFFICER Ancillary Procedure Department of Ophthalmology in [place], [place] [address] [place] [phone] Asmita Davies M.D. [address] [place] [phone] 09/27/2024 9:45 AM IMMIGRATION OFFICER Ancillary Procedure Department of Ophthalmology in [place], [place] [address] [place] [phone] Asmita Davies M.D. [address] [place] [phone] 09/27/2024 10:00 AM IMMIGRATION OFFICER Office Visit Department of Ophthalmology in [address] [phone] Asmita Davies M.D. [address] [place] [phone] 09/27/2024 1:00 PM IMMIGRATION OFFICER Office Visit [facility] in [address] [phone] Oh Mckeon APRN, C.N.P., M.S.N. [address] [place] [phone] 10/18/2024 1:00 PM IMMIGRATION OFFICER Comprehensive Visit Department of Obstetrics and Gynecology in [address] [phone] Teresa Espitia APRN, C.N.P., D.N.P. [address] [place] [phone] documented as of this encounter Visit Diagnoses Not on filedocumented in this encounter Additional Health Concerns Assessment Noted Time PHQ-9 Depression Total Score: 4 03/02/20 23 12:57 PM CDT documented as of this encounter Care Teams Butadiene Converter Helper Relationship Specialty Start Date End Date Elsewhere, Pcp PCP - General Internal Medicine 08/31/22 documented as of this encounter
--- OUTSIDE RECORDS SUMMARY | 2024-09-10 16:19 | XMS_ITS | Encounter Summary ---
Author Organization [facility] Address [address] [place] [address] Care Team Providers Care Seasoning Mixer Name Role Phone Elsewhere, Pcp Primary Care Provider Unavailabl e Encounter Details Date Type Department Care Team (Late st Contact Info) Description 2018 Historical Ophthalmology RST OPH Erin Gomez O.D. [address] [place] [address] Social History Tobacco Use Types Packs/Day Years Used Date Smoking Tobacco: Never Assessed Comments Unknown Sex and Gender Information Value Date Recorded Sex Assigned at Female 03/24/2018 4:51 PM CDT Legal Sex Female 6:23 AM WAREHOUSE RECORD CLERK Gender Identity Female 03/24/2018 4:51 PM CDT Sexual Orientation Straight 03/24/2018 4: 51 PM CDT documented as of this encounter Progress Notes * Erin Gomez O.D. - 2018 12:56 PM CST Eye General CHIEF COMPLAINT glaucoma check up. HISTORY OF PRESENT ILLNESS History of early mild low tension glaucoma. Left eye cataract is getting worse; cloudy vision; constant; moderate. IMPRESSION / REPORT / PLAN #1 Pigmented choroidal nevus right eye Follows with Dr. Davies, next exam 02/09/18 #2 operculated retinal hole, left eye #3 Epiretinal membrane, right eye Spec OCT 06/2017: RE erm, no IRF or SRF. LE wnl. #4 History of sub-foveal fluid, right eye See #3 #5 Hx vascular decompensation post pole, right eye per CAM/DMR #6 Cataract, left eye 01/01: Sees Dr Madina Solorzano today, last refraction 07/31 #7 Early mild low tension glaucoma +progression of optic nerve cupping and oct right eye Tmax 17/15 goal iop right 11 Started azopt BID RE 01/2012 no drops in the left Switched to dorzolamide (Trusopt) by Dr. Davies due to high cost of Azopt, TID regime due to increase in IOP 02/25 OCT 01/01: RE suspicious for thinning temporally. LE wnl. SS 06/20. RNFL 69/83. Both eyes stable. 01/01 GMS: Continue current drops dorzolamide [TRUSOPT] 2 % drops 1 drop ophthalmic three times a day-right eye., RTC 6 months with Radha RTC 6 months with Radha #8 History of DVT and Factor V Leiden mutation per outside diagnosis 12/2015 Started Xarelto #9 Pseudophakia, right eye s/p ECCE/IOL, (04/14/16, Rashad) Doing well, though vision should be better based on anterior segment exam. Dr. 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 DIAGNOSIS #1 Pigmented choroidal nevus right eye [...] upper eyelids CDM Reports - EYEGEN Id: [id number] Status: Fnl documented in this encounter Plan of Treatment Upcoming Encounters Date Type Department Care Team (Latest Contact Info) Description 09/20/2024 3:00 PM WAREHOUSE RECORD CLERK Infusion Department of Infusion Therapy in [address] [place] [address] Amisha Hughes APRN, C.N.P. [address] [place] [phone] 09/27/2024 9:15 AM WAREHOUSE RECORD CLERK Ancillary Procedure Department of Ophthalmology in [place], [place] [address] [place] [phone] Asmita Davies M.D. [address] [place] [phone] 09/27/2024 9:45 AM WAREHOUSE RECORD CLERK Ancillary Procedure Department of Ophthalmology in [place], [place] [address] [place] [phone] Asmita Davies M.D. [address] [place] [phone] 09/27/2024 10:00 AM WAREHOUSE RECORD CLERK Office Visit Department of Ophthalmology in [place], [place] [address] [place] [phone] Asmita Davies M.D. [address] [place] [phone] 09/27/2024 1:00 PM WAREHOUSE RECORD CLERK Office Visit [facility] in [address] [phone] Oh Mckeon, AZAEL, C.N.P., M.S.N. [address] [place] [phone] 10/18/2024 1:00 PM WAREHOUSE RECORD CLERK Comprehensive Visit Department of Obstetrics and Gynecology in [address] [phone] Teresa Espitia APRN, C.N.P., D.N.P. [address] [place] [phone] documented as of this encounter Visit Diagnoses Not on filedocumented in this encounter Additional Health Concerns Infection Onset Date Last Indicated Resolved Time COVID19 Pending 10/06/2020 10/06/2020 10/06/2020 6 :04 PM WAREHOUSE RECORD CLERK Assessment Noted Time PHQ-9 Depression Total Score: 0 12/05/19 18 6:52 AM WAREHOUSE RECORD CLERK documented as of this encounter Care Teams Seasoning Mixer Relationship Specialty Start Date End Date Elsewhere, Pcp PCP - General Internal Medicine 08/31/22 documented as of this encounter
--- OUTSIDE RECORDS SUMMARY | 2024-09-10 16:19 | XMS_ITS | Encounter Summary ---
Author Organization [facility] Address [address] [place] [phone] Care Team Providers Care Bedspread Cutter Hand Name Role Phone Elsewhere, Pcp Primary Care Provider Unavailabl e Reason for Visit * Reason Comments Injections Evenity * Episode Based Medications (Routine) - Authorized Specialty Diagnoses / Procedures Referred By Contac t Referred To Contact Diagnoses Osteoporosis Amisha Hughes APRN, C.N.P. [address] [place] [phone] Phone: tel: fax: Division of Endocrinology in [place], [place] [address] [place] [phone] Phone: tel: fax: Referral ID Status Reason Start Date Expiration Date V isits Requested Visits Authorized [id number] Authorized 04/13/2024 04/13/2026 99 99 Encounter Details Date Type Department Care Team (Late st Contact Info) Description 07/19/2024 10:30 AM CDT Infusion Department of Infusion Therapy in [place], [place] [address] [facility] [address] Amisha Hughes APRN, C.N.P. [address] [place] [phone] Osteoporosis (Primary Dx) Discharge Disposition: Home or Self Care Social History Tobacco Use Types Packs/Day Years Used Date Smoking Tobacco: Never Passive Smoke Exposure: Never Smokeless Tobacco: Never Alcohol Use Standard Drinks/Week Comments Not Currently 0 (1 standard drink = 0.6 oz pur e alcohol) 2 glasses of wine per month [facility] Utilities Answer Date Recorded In the past 12 months has e [employer], gas, oil, or water [employer] threatened to shut off services in your [...] often do you attend chur ch or tenriism services? More than 4 times per year 01/17/2023 Do you belong to any clubs o r organizations such as yazidism groups, unions, fraternal or athletic groups, or [...] Answer Date Recorded PHQ-2 Score 0 02/20/2024 [facility] Occupat ional [facility] - Occupational Stress Questionnaire Answer Date Recorded [...] Master's degree (e.g., MA, MS, Frances, MEd, SCHOOL ADJUSTMENT COUNSELOR, SRUTHI) 01/01/2020 Comments No Sex and Gender Information Value Date Recorded Sex Assigned at Female 03/24/2018 4:51 PM CDT Legal Sex Female 6:23 AM COIL WINDER HAND Gender Identity Female 03/24/2018 4:51 PM CDT Sexual Orientation Straight 03/24/2018 4: 51 PM CDT documented as of this encounter Last Filed Vital Signs Vital Sign Reading Time Taken Comments Blood Pressure 139/80 07/19/2024 10:39 AM CDT Pulse 91 07/19/2024 10:39 AM CDT Temperature 36.3 ??C (97.3 ??F) 07/19/2024 10:39 AM C DT Respiratory Rate 18 07/19/2024 10:39 AM CDT Oxygen Saturation - - Inhaled Oxygen Concentration - - Weight - - Height - - Body Mass Index - - documented in this encounter Plan of Treatment Upcoming Encounters Date Type Department Care Team (Latest Contact Info) Description 09/20/2024 3:00 PM COIL WINDER HAND Infusion Department of Infusion Therapy in [place], [place] [address] [place] [address] [place] [address] Amisha Hughes, CONTRACT MAIL CARRIER, C.N.P. [address] [place] [phone] 09/27/2024 9:15 AM COIL WINDER HAND Ancillary Procedure Department of Ophthalmology in [place], [place] [address] [place] [phone] Asmita Davies M.D. [address] [place] [phone] 09/27/2024 9:45 AM COIL WINDER HAND Ancillary Procedure Department of Ophthalmology in [place], [place] [address] [place] [phone] Asmita Davies M.D. [address] [place] [phone] 09/27/2024 10:00 AM COIL WINDER HAND Office Visit Department of Ophthalmology in [place], [place] [address] [place] [phone] Asmita Davies M.D. [address] [place] [phone] 09/27/2024 1:00 PM COIL WINDER HAND Office Visit [facility] in [place], [place] [address] [place] [phone] Oh Mckeon APRN, C.N.P., M.S.N. [address] [place] [phone] 10/18/2024 1:00 PM COIL WINDER HAND Comprehensive Visit Department of Obstetrics and Gynecology in [place], [place] [address] [place] [phone] Teresa Espitia APRN, C.N.P., D.N.P. [address] [place] [phone] documented as of this encounter Visit Diagnoses Diagnosis Osteoporosis- Primary documented in this encounter Administered Medications Inactive Administered Medications - up to 3 most recent administrations Medication Order MAR Action Action Date Dose Rate Site romosozumab-aqqg injection 210 mg (Evenity) 210 mg, subcutaneous, Once, On Fariha 07/19/24 at 1100, For 1 doseIndications:Osteopor osis Given 07/19/2024 10:54 AM CDT 210 mg Left Lower Abdomen documented in this encounter Additional Health Concerns Assessment Noted Time PHQ-9 Depression Total Score: 4 03/02/20 23 12:57 PM CDT documented as of this encounter Care Teams Bedspread Cutter Hand Relationship Specialty Start Date End Date Elsewhere, Pcp PCP - General Internal Medicine 08/31/22 documented as of this encounter
--- OUTSIDE RECORDS SUMMARY | 2024-09-10 16:19 | XMS_ITS | Encounter Summary ---
Author Organization [facility] Address [address] [place] [address] Care Team Providers Care Physician Obstetrician Name Role Phone Elsewhere, Pcp Primary Care Provider Unavailabl e Reason for Referral * Physical Therapy (Routine) - Authorized Specialty Diagnoses / Procedures Referred By Contac t Referred To Contact Diagnoses Urinary Urge Incontinence Cami Ramos P.A.-C. [address] [place] [address] Phone: tel: fax: Referral ID Status Reason Start Date Expiration Date Visits Requested Visits Authorized [id number] Authorized Patient Preference 06/15/2024 12/15/2025 99 99 * Outpatient (Routine) - Authorized Specialty Diagnoses / Procedures Referred By Contac t Referred To Contact Obstetrics and Gynecology Diagnoses Lichen Sclerosus Cami Ramos P.A.-C. [address] [place] [address] Phone: tel: fax: [facility] Referral ID Status Reason Start Date Expiration Date V isits Requested Visits Authorized [id number] Authorized 06/15/2024 12/15/2025 1 1 Scheduling Instructions Any NURSING HOME AIDE TASH or resident-long visit please Reason for Visit * Outpatient (Routine) - Closed Specialty Diagnoses / Procedures Referred By Contac t Referred To Contact Obstetrics and Gynecology Diagnoses Urinary Tract Infection Site Not Specified Janee Ashley M.D. [address] [place] [address] Phone: tel: fax: [facility] Referral ID Status Reason Start Date Expiration Date Visits Re quested Visits Authorized [id number] Closed 12/06/2023 06/06/2025 1 1 Encounter Details Date Type Department Care Team (Latest Contact Info) Description 06/15/2024 11:00 AM CDT Office Visit Department of Obstetrics and Gynecology, Division of Urogynecology in [place], [place] [address] [place] [phone] Cami Ramos P.A.-C. [address] [place] [phone] Urinary Urge Incontinence (Primary Dx); Postmenopausal Atrophic Vaginitis; Lichen Sclerosus; Atrophy Pelvic Muscle Disuse Social History Tobacco Use Types Packs/Day Years Used Date Smoking Tobacco: Never Passive Smoke Exposure: Never Smokeless Tobacco: Never Alcohol Use Standard Drinks/Week Comments Not Currently 0 (1 standard drink = 0.6 oz pur e alcohol) 2 glasses of wine per month [facility] Utilities Answer Date Recorded In the past 12 months has [facility] [employer], gas, oil, or water [facility] threatened to shut off services in your [...] often do you attend chur ch or catholic services? More than 4 times per year 01/17/2023 Do you belong to any clubs o r organizations such as mormon groups, unions, fraternal or athletic groups, or [...] Answer Date Recorded PHQ-2 Score 0 02/20/2024 [facility] Answer Date [...] your living situation today? I have a [facility] place to live 02/26/2024 Education Answer Date Recorded What is the highest level of school you have completed or the highest degree you have received? Master's degree (e.g., MA, MS, Frances, MEd, CIRCUIT BREAKER ASSEMBLER, SRUTHI) 01/01/2020 Comments No Sex and Gender Information Value Date Recorded Sex Assigned at Female 03/24/2018 4:51 PM CDT Legal Sex Female 6:23 AM ACETALDEHYDE CONVERTER OPERATOR Gender Identity Female 03/24/2018 4:51 PM CDT Sexual Orientation Straight 03/24/2018 4: 51 PM CDT documented as of this encounter Consult Notes * Cami Ramos P.A.-C. - 06/15/2024 11:00 AM CDT SUBJECTIVE REFERRING PROVIDER Janee Ashley M.D. CHIEF COMPLAINT / REASON FOR VISIT [facility] patient Urinary urge incontinence HISTORY OF PRESENT ILLNESS Ms.Audrey Gita Romerois a 89 y.o. P2 (normal vaginal deliveries) very pleasant female. Urinary symptoms: Please refer to my prior note in November of 2020 for complete information. Ms. Romero is present with her daughter Lucy. 2010 she started experiencing urinary urge incontinence. Ithas worsened over time. It is worse at night comparative to the day. She currently wears 3 #7 poisepads at a time changing just the top pad by bedtime. Therefore she will go through a total of 4 #7 poise pads during the day. At night she continues to wear 3 #7 poise pads at a time and changes thistwice for a total of six pads at night. She also has Chux pad on the bed and since she was up her pajamas above her waist so that they do not get wet. When she gets up to change her pads she states she does not have an urge to urinate but she already feels the wetness. She then will remove her pajamas walked to the bathroom and change her underwear and padding as well as 50% of the time change the Chux pad on the bed. Compounding factors to her nighttime incontinence is that she does take sleeping pills. She also tells me she has sleep apnea and wears a fullface CPAP. The patient has secondary stress incontinence with coughing or sneezing 2-3 times out of the week. She describes 90% urinary urge incontinence and 10% stress incontinence as we discussed this specifically. She just had a uroflow today in Urology. While it has not been formally read from the physician-thenurse's note she voided 125 cc and had a 10 cc ultrasound postvoid residual. She has a history of recurrent urinary tract infections and hematuria [facility] Please refer to Divina Rosen recent E consult note on April 19, 2024 outlining this. Of note the patient states she has not had a urinary tract infection since her cystoscopy and feels that her bladder being washed out was very helpful. She is happy with this. She does not have a current bladder diary. She states though if she is mindful of voiding about every 2-3 hours during the day she typically is able to control her daytime urge incontinence apart from just changing one pad. If she waits longer than every 2-3 hours to void she will have more problems with urge incontinence. She believe she drinks about 40 oz total fluid per day. Pelvic prolapse: She denies vaginal prolapse. Bowel function: She had some recent constipation but noted if she eats kiwi every day it typically controls this pretty well. She described her constipation as having ???pellets?? every other day. Now with eating a kiwi she has a [place] stool Scale type 4 bowel movement typically daily. She does not feel as if she completely defecates. She does have fecal urgency with fecal incontinence. When her daughter helps her shower she will have chunks of stool come out insensate while showering. I explained to them that they can always work with gastroenterology for her fecal incontinence working through Dr. Solis if they choose to. Sexual function: She is not sexually active. When I saw her in November of 2020 I gave her vaginal estrogen to utilize. She utilized this until the prescription ran out for about one year. She is unsure if it helped her urinary symptoms or not. 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 She denies any specific vaginal itching. OBJECTIVE PHYSICAL EXAMINATION Genitalia: Normal appearing external genitalia. Whitish discoloration at the clitoral askew. We did a modified pelvic examination for patient comfort where she pull down her pants underwear and padding to her ankles and did a frog-leg to approach rather than using stirrups. Narrowing of the vaginal area. Pediatric speculum utilized. It was uncomfortable. Due to the position and patient discomfort I did not assess her cervix. There is no prolapse. She does have atrophic vaginitis. No prolapse. Noincontinence. Kegel's are weak at 2/5. No levator spasms bilaterally. No vaginal masses. No abnormal urethral vaginal or rectal discharge noted. No bleeding. Cesspool Cleaner: Amanda Wall. ASSESSMENT / PLAN #1 Worsening urinary urge incontinence 2. Atrophic vaginitis 3. Pelvic muscle weakness 4. 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 1. Practicing and utilizing Kegel exercises including holding the contraction for 10 seconds, resting for 10 seconds, 10 in a row, 3 times daily or 2 sets of 15 if that is more convenient. You may also consider doing 10 quick flicks 2-3 times daily.Then incorporating the Kegels during incontinent episodes including urge suppression to help decrease and/or eliminate the incontinence 2. Pelvic floor physical therapy 3. Vaginal electrogalvanic stimulation (ESTIM therapy), peripheral tibial nerve stimulation 4. Consider treating vaginal atrophy which has been shown in some patients to improve urinary incontinence 5. Avoid dietary irritants 6. Practice healthy bladder habits: drinking around 60 oz/daily, voiding 5-9 times daily, with voided volumes between 8-10 oz per void 7. Maintaining a heathy body weight, according to the PRIDE study, revealing an 8% body weight lossshould decrease urinary incontinence by half if that patient is overweight with a BMI between 25-50 8. Maintain healthy bowels 9. Anticholinergic medications 10. Surgery which includes Botox or sacral neurostimulation Vaginal estrogen is a helpful treatment for atrophic vaginitis. It helps increase blood flow to thetissue and improve tissue integrity. This can help with vaginal dryness, raw feeling and irritation. It also may help decrease urinary tract infections, dyspareunia, and urinary incontinence. It usually takes at least 6 weeks to work. I typically recommend 1/2-1gm to vagina 2-3 times weekly indefinitely (unless there are intolerable reactions to the medication). You may use the tip of your index finger or applicator as to whichever you are most comfortable. It is primarily locally absorbed so safe to use. There is no conclusive evidence that the use of vaginal estrogen increases the risk of breast cancer or other conditions that may be associated with systemic hormone replacement therapy. Plan: Local pelvic floor physical therapy. Prescription given. Names shared from the pelvic rehab dot com website. Estradiol vaginal cream prescribed to her local pharmacy. She should apply 1 g with the tip of her index finger to the introitus and in the vagina twice weekly at night before bed. Sanctura 20 mg twice daily with refills up to one year. I printed this out for her as she will decide whether or not to fill this. If this works well for her she can continue using it. If it gives her side effects she should stop it and let me know. If it is partially effective we can increase to Sanctura XR 60 mg daily. Long import export manager consult ordered for evaluation of likely vulvar lichen sclerosus and management of this. I offered her follow-up to see how the Sanctura is working. She declined any soon follow-up [id number] or video just stating she is happy to see me on an annual basis when she has her [facility] consults. BILLING Total time 80 minutes face to face with greater than 50% of the time spent counseling and education. documented in this encounter Plan of Treatment Upcoming Encounters Date Type Department Care Team (Latest Contact Info) Description 09/20/2024 3:00 PM ACETALDEHYDE CONVERTER OPERATOR Infusion Department of Infusion Therapy in [place], [place] [address] [address] Amisha Hughes APRN, C.N.P. [address] [place] [phone] 09/27/2024 9:15 AM ACETALDEHYDE CONVERTER OPERATOR Ancillary Procedure Department of Ophthalmology in [place], [place] [address] [place] [phone] Asmita Davies M.D. [address] [place] [phone] 09/27/2024 9:45 AM ACETALDEHYDE CONVERTER OPERATOR Ancillary Procedure Department of Ophthalmology in [place], [place] [address] [place] [phone] Asmita Davies M.D. [address] [place] [phone] 09/27/2024 10:00 AM ACETALDEHYDE CONVERTER OPERATOR Office Visit Department of Ophthalmology in [place], [place] [address] [place] [phone] Asmita Davies M.D. [address] [place] [phone] 09/27/2024 1:00 PM ACETALDEHYDE CONVERTER OPERATOR Office Visit [facility] in [place], [place] [address] [place] [phone] Oh Mckeon APRN, C.N.P., M.S.N. [address] [place] [phone] 10/18/2024 1:00 PM ACETALDEHYDE CONVERTER OPERATOR Comprehensive Visit Department of Obstetrics and Gynecology in [place], [place] [address] [place] [phone] Teresa Espitia APRN, C.N.P., D.N.P. [address] [place] [address] Scheduled Referrals Name Type Priority Associated Diagnoses Order Schedule Obstetrics and Gynecology - Gynecology consult (clinic) Outpatient Referral Routine Lichen Sclerosus Expected: 06/15/2024, Expires: 09/15/2025 documented as of this encounter Visit Diagnoses Diagnosis Urinary Urge Incontinence- Primary Postmenopausal Atrophic Vaginitis Lichen Sclerosus Atrophy Pelvic Muscle Disuse documented in this encounter Additional Health Concerns Assessment Noted Time PHQ-9 Depression Total Score: 4 03/02/20 23 12:57 PM CDT documented as of this encounter Care Teams Physician Obstetrician Relationship Specialty Start Date End Date Elsewhere, Pcp PCP - General Internal Medicine 08/31/22 documented as of this encounter
--- OUTSIDE RECORDS SUMMARY | 2024-09-10 16:19 | XMS_ITS | Encounter Summary ---
Author Organization [facility] Address [address] [place] [address] Care Team Providers Care Wireless Operator Name Role Phone Elsewhere, Pcp Primary Care Provider Unavailabl e Encounter Details Date Type Department Care Team (Late st Contact Info) Description 02/13/2018 Historical Ophthalmology RST OPH Asmita Davies M.D. [address] [place] [phone] Social History Tobacco Use Types Packs/Day Years Used Date Smoking Tobacco: Never Comments Unknown Sex and Gender Information Value Date Recorded Sex Assigned at Female 03/24/2018 4:51 PM CDT Legal Sex Female 6:23 AM CLINICAL NURSE EDUCATOR Gender Identity Female 03/24/2018 4:51 PM CDT Sexual Orientation Straight 03/24/2018 4: 51 PM CDT documented as of this encounter Progress Notes * Asmita Davies M.D. - 02/13/2018 9:12 AM CDT Eye Subsequent Visit HISTORY OF PRESENT ILLNESS Patient returns for refraction. IMPRESSION / REPORT / PLAN #1 Presbyopia DIAGNOSIS #1 Presbyopia CDM Reports - EYESV Id: [id number] Status: Fnl documented in this encounter Plan of Treatment Upcoming Encounters Date Type Department Care Team (Latest Contact Info) Description 09/20/2024 3:00 PM CLINICAL NURSE EDUCATOR Infusion Department of Infusion Therapy in [place], [place] [address] [place] [address] Amisha Hughes APRN, C.N.P. [address] [place] [phone] 09/27/2024 9:15 AM CLINICAL NURSE EDUCATOR Ancillary Procedure Department of Ophthalmology in [place], [place] [address] [place] [phone] Asmita Davies M.D. [address] [place] [phone] 09/27/2024 9:45 AM CLINICAL NURSE EDUCATOR Ancillary Procedure Department of Ophthalmology in [place], [place] [address] [place] [phone] Asmita Davies M.D. [address] [place] [phone] 09/27/2024 10:00 AM CLINICAL NURSE EDUCATOR Office Visit Department of Ophthalmology in [place], [place] [address] [place] [phone] Asmita Davies M.D. [address] [place] [phone] 09/27/2024 1:00 PM CLINICAL NURSE EDUCATOR [facility] Visit [facility] in [place], [place] [address] [place] [phone] Oh Mckeon APRN, C.N.P., M.S.N. [address] [place] [phone] 10/18/2024 1:00 PM CLINICAL NURSE EDUCATOR Comprehensive Visit Department of Obstetrics and Gynecology in [place], [place] [address] [place] [phone] Teresa Espitia APRN, C.N.P., D.N.P. [address] [place] [phone] documented as of this encounter Visit Diagnoses Not on filedocumented in this encounter Additional Health Concerns Infection Onset Date Last Indicated Resolved Time COVID19 Pending 10/06/2020 10/06/2020 10/06/2020 6 :04 PM CLINICAL NURSE EDUCATOR Assessment Noted Time PHQ-9 Depression Total Score: 0 12/05/19 18 6:52 AM CLINICAL NURSE EDUCATOR documented as of this encounter Care Teams Wireless Operator Relationship Specialty Start Date End Date Elsewhere, Pcp PCP - General Internal Medicine 08/31/22 documented as of this encounter
--- OUTSIDE RECORDS SUMMARY | 2024-09-10 16:19 | XMS_ITS | Encounter Summary ---
Author Organization [facility] Address [address] [place] [address] Care Team Providers Care Practical Nursing Instructor Name Role Phone Elsewhere, Pcp Primary Care Provider Unavailabl e Encounter Details Date Type Department Care Team (Late st Contact Info) Description 12/16/2016 Historical Ophthalmology RST OPH Aime Savage O.D. [address] [place] [address] Social History Tobacco Use Types Packs/Day Years Used Date Smoking Tobacco: Never Assessed Comments Unknown Sex and Gender Information Value Date Recorded Sex Assigned at Female 03/24/2018 4:51 PM CDT Legal Sex Female 6:23 AM PLATE EMBOSSER Gender Identity Female 03/24/2018 4:51 PM CDT Sexual Orientation Straight 03/24/2018 4: 51 PM CDT documented as of this encounter Progress Notes * Aime Savage O.D. - 12/16/2016 7:45 AM CST Eye General CHIEF COMPLAINT low tension glaucoma follow up HISTORY OF PRESENT ILLNESS Follow up today with Dr. Asmita Davies and Dr. Savage ; Automated visual field completed. Continues with distortion in her right eye ; notices this the most when working with numbers ; owner manager of business.; compliant with drops ; rarely missing. denies new floaters ; no flashers of lights and no eye pain noted. IMPRESSION / REPORT / PLAN #1 Low tension glaucoma, right eye CCT: 558/559; Tmax Goal IOP right eye 11 OCT RNFL 12/31: both eyes stable DIANNA 12/31: right - more prominant inf arc, MD equivalent vs 2016, no progression per GPA; left - non specific scatter IOP acceptable Continue dorzolamide TID right eye only Recheck with DIANNA in 4 months - monitor VF right closely at IOP within goal #2 Psuedophakia, right eye Patient is doing well with new glasses #3Cataract, left eye, stable. Monitor periodically. 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 [address] [place] [phone] 09/27/2024 9:15 AM PLATE EMBOSSER Ancillary Procedure Department of Ophthalmology in [place], [place] [address] [place] [phone] Asmita Davies M.D. [address] [place] [phone] 09/27/2024 9:45 AM PLATE EMBOSSER Ancillary Procedure Department of Ophthalmology in [place], [place] [address] [place] [phone] Asmita Davies M.D. [address] [place] [phone] 09/27/2024 10:00 AM PLATE EMBOSSER Office Visit Department of Ophthalmology in [place], [place] [address] [place] [phone] Asmita Davies M.D. [address] [place] [phone] 09/27/2024 1:00 PM PLATE EMBOSSER Office Visit [facility] in [place], [place] [address] [place] [phone] Oh Mckeon, AZAEL, C.N.P., M.S.N. [address] [place] [phone] 10/18/2024 1:00 PM PLATE EMBOSSER Comprehensive Visit Department of Obstetrics and Gynecology in [place], [place] [address] [place] [phone] Teresa Espitia APRN, C.N.P., D.N.P. [address] [place] [phone] documented as of this encounter Visit Diagnoses Not on filedocumented in this encounter Additional Health Concerns Infection Onset Date Last Indicated Resolved Time COVID19 Pending 10/06/2020 10/06/2020 10/06/2020 6 :04 PM PLATE EMBOSSER documented as of this encounter Care Teams Practical Nursing Instructor Relationship Specialty Start Date End Date Elsewhere, Pcp PCP - General Internal Medicine 08/31/22 documented as of this encounter
--- OUTSIDE RECORDS SUMMARY | 2024-09-10 16:19 | XMS_ITS | Encounter Summary ---
Author Organization [facility] Address [address] [place] [address] Care Team Providers Care Oil Furnace Installer Name Role Phone Elsewhere, Pcp Primary Care Provider Unavailabl e Reason for Visit * Reason Onset Date Comments After Visit Question 05/16/2024 Encounter Details Date Type Department Care Team (Latest Contact Info) Description 05/16/2024 Clinical Communication Department of Cardiovascular Medicine in [place], [place] [address] [place] [address] Dagmar Zamora R.N. [address] [place] [address] After Visit Question Social History Tobacco Use Types Packs/Day Years Used Date Smoking Tobacco: Never Passive Smoke Exposure: Never Smokeless Tobacco: Never Alcohol Use Standard Drinks/Week Comments Not Currently 0 (1 standard drink = 0.6 oz pur e alcohol) 2 glasses of wine per month [facility] Utilities Answer Date Recorded In the past 12 months has [employer], oil, or water [employer] threatened to shut off services in your [...] How often do you attend chur or yarsani services? More than 4 times per year 01/17/2023 Do you belong to any clubs o r organizations such as yarsanism groups, unions, fraternal or athletic groups, or [...] Answer Date Recorded PHQ-2 Score 0 02/20/2024 [facility] - Occupational [...] your living situation today? [facility] 02/26/2024 Education Answer Date Recorded What is the highest level of school you have completed or the highest degree you have received? Master's degree (e.g., MA, MS, Frances, MEd, ASSISTANT ATTORNEY GENERAL, SRUTHI) 01/01/2020 Comments No Sex and Gender Information Value Date Recorded Sex Assigned at Female 03/24/2018 4:51 PM CDT Legal Sex Female 6:23 AM LATHE TENDER Gender Identity Female 03/24/2018 4:51 PM CDT Sexual Orientation Straight 03/24/2018 4: 51 PM CDT documented as of this encounter Plan of Treatment Upcoming Encounters Date Type Department Care Team (Latest Contact Info) Description 09/20/2024 3:00 PM LATHE TENDER Infusion Department of Infusion Therapy in [place], [place] [address] [facility] [place] [address] Amisha Hughes, DIGITAL COMMENTATOR, C.N.P. [address] [place] [address] 09/27/2024 9:15 AM LATHE TENDER Ancillary Procedure Department of Ophthalmology in [place], [place] [address] [place] [phone] Asmita Davies M.D. [address] [place] [phone] 09/27/2024 9:45 AM LATHE TENDER Ancillary Procedure Department of Ophthalmology in [place], [place] [address] [place] [phone] Asmita Davies M.D. [address] [place] [phone] 09/27/2024 10:00 AM LATHE TENDER Office Visit Department of Ophthalmology in [address] [address] Asmita Davies M.D. [address] [place] [phone] 09/27/2024 1:00 PM LATHE TENDER Office Visit [facility] in [address] [phone] Oh Mckeon APRN, C.N.P., M.S.N. [address] [place] [phone] 10/18/2024 1:00 PM LATHE TENDER Comprehensive Visit Department of Obstetrics and Gynecology in [address] [phone] Teresa Espitia APRN, C.N.P., D.N.P. [address] [place] [phone] documented as of this encounter Visit Diagnoses Not on filedocumented in this encounter Additional Health Concerns Assessment Noted Time PHQ-9 Depression Total Score: 4 03/02/20 23 12:57 PM CDT documented as of this encounter Care Teams Oil Furnace Installer Relationship Specialty Start Date End Date Elsewhere, Pcp PCP - General Internal Medicine 08/31/22 documented as of this encounter
--- OUTSIDE RECORDS SUMMARY | 2024-09-10 16:19 | XMS_ITS ---
Author Organization [facility] Address [address] [place] [address] Care Team Providers Care Maintenance And Repair Worker Name Role Phone Unavailable Unavailable Unavailable Surgery Details Not on file Complications Check Surgery Details section. Procedure Estimated Blood Loss Check Surgery Details section. Procedure Findings Check Surgery Details section. Procedure Specimens Taken Check Surgery Details section.
--- OUTSIDE RECORDS SUMMARY | 2024-09-10 16:19 | XMS_ITS | Encounter Summary ---
Author Organization [facility] Address [address] [place] [address] Care Team Providers Care Area Director Of Home Health Sales Name Role Phone Elsewhere, Pcp Primary Care Provider Unavailabl e Encounter Details Date Type Department Care Team (Late st Contact Info) Description 09/09/2016 Historical Ophthalmology [facility] Asmita Davies M.D. [address] [place] [address] Social History Tobacco Use Types Packs/Day Years Used Date Smoking Tobacco: Never Assessed Comments Unknown Sex and Gender Information Value Date Recorded Sex Assigned at Female 03/24/2018 4:51 PM CDT Legal Sex Female 6:23 AM ONCOLOGY REP Gender Identity Female 03/24/2018 4:51 PM CDT Sexual Orientation Straight 03/24/2018 4: 51 PM CDT documented as of this encounter Progress Notes * Asmita Davies M.D. - 09/09/2016 7:11 AM CDT Eye General CHIEF COMPLAINT Choroidal nevus right eye. HISTORY OF PRESENT ILLNESS History of ECCE IOL right eye, PPV for macular hole right eye. No vision changes either eye since July visit. Patient denies ocular pain either eye. IMPRESSION / REPORT / PLAN The following tests have been completed and need interpretation. 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 LS TODAY - 08/2016 mfERG is not significantly different between the two eyes. OCT is stable Release glasses RX per Dr. Solorzano today. The right eye refracts to 20/50 which I think is reasonable based on the residual astigmatism and the retinal changes (hx subfoveal subretinal fluid in right eye) Follow up with [facility] when she is due to see Dr. Savage (approx Dec 2016) - repeat Spectralis OCT at that time. 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 [address] [place] [address] 09/27/2024 9:15 AM ONCOLOGY REP Ancillary Procedure Department of Ophthalmology in [place], [place] [address] [place] [address] Asmita Davies M.D. [address] [place] [phone] 09/27/2024 9:45 AM ONCOLOGY REP Ancillary Procedure Department of Ophthalmology in [place], [place] [address] [place] [address] Asmita Davies M.D. [address] [place] [address] 09/27/2024 10:00 AM ONCOLOGY REP Office Visit Department of Ophthalmology in [place], [place] [address] [place] [address] Asmita Dvaies M.D. [address] [place] [phone] 09/27/2024 1:00 PM ONCOLOGY REP Office Visit [facility] in [place], [place] [address] [place] [phone] Oh Mckeon APRN, C.N.P., M.S.N. [address] [place] [phone] 10/18/2024 1:00 PM ONCOLOGY REP Comprehensive Visit Department of Obstetrics and Gynecology in [place], [place] [address] [place] [phone] Teresa Espitia APRN, C.N.P., D.N.P. [address] [place] [phone] documented as of this encounter Visit Diagnoses Not on filedocumented in this encounter Additional Health Concerns Infection Onset Date Last Indicated Resolved Time COVID19 Pending 10/06/2020 10/06/2020 10/06/2020 6 :04 PM ONCOLOGY REP documented as of this encounter Care Teams Area Director Of Home Health Sales Relationship Specialty Start Date End Date Elsewhere, Pcp PCP - General Internal Medicine 08/31/22 documented as of this encounter
--- OUTSIDE RECORDS SUMMARY | 2024-09-10 16:19 | XMS_ITS | Encounter Summary ---
Author Organization [facility] Address [address] [place] [address] Care Team Providers Care Radio Program Checker Name Role Phone Elsewhere, Pcp Primary Care Provider Unavailabl e Reason for Visit * Reason Comments Urinary Incontinence * Outpatient (Routine) - Closed Specialty Diagnoses / Procedures Referred By Contac t Referred To Contact Diagnoses Incontinence Urinary Procedures URO Uroflow Janee Ashley M.D. [address] [place] [address] Phone: tel: fax: [facility] Referral ID Status Reason Start Date Expiration Date Visits Re quested Visits Authorized [id number] Closed 12/06/2023 12/05/2024 1 1 Encounter Details Date Type Department Care Team (Latest Contact Info) Description 06/15/2024 9:30 AM CDT Procedure visit Department of Urology in [place], [place] [address] [place] [phone] Janee Ashley M.D. [address] [place] [phone] Sandy Dodson, L.P.N. Incontinence Urinary Stress And Urge [N39.46] (Primary Dx); Incontinence Urinary Social History Tobacco Use Types Packs/Day Years Used Date Smoking Tobacco: Never Passive Smoke Exposure: Never Smokeless Tobacco: Never Alcohol Use Standard Drinks/Week Comments Not Currently 0 (1 standard drink = 0.6 oz pur e alcohol) 2 glasses of wine per month [facility] Utilities Answer Date Recorded In the past 12 months has th e electric, gas, oil, or water company threatened to [...] often do you attend chur ch or amish services? More than 4 times per year 01/17/2023 Do you belong to any clubs o r organizations such as shinto groups, unions, fraternal or athletic groups, or [...] Answer Date Recorded PHQ-2 Score 0 02/20/2024 [facility] - Occupational Stress Questionnaire Answer Date [...] Master's degree (e.g., MA, MS, Frances, MEd, FACT CHECKER, SRUTHI) 01/01/2020 Comments No Sex and Gender Information Value Date Recorded Sex Assigned at Female 03/24/2018 4:51 PM CDT Legal Sex Female 6:23 AM CHAIN REPAIRER Gender Identity Female 03/24/2018 4:51 PM CDT Sexual Orientation Straight 03/24/2018 4: 51 PM CDT documented as of this encounter Progress Notes * Sandy Dodson L.PMegan. - 06/15/2024 9:30 AM CDT CHIEF COMPLAINT Patient here for a complex uroflow via calibrated electronic equipment and a residual urine check by ultrasound. IMPRESSION/REPORT/PLAN Janee Ashley M.D. ordered the patient to have a complex uroflow with residual urine check viaultrasound. Patient had a moderate urge to void. Uroflow was completed at this time. Patient mL's and had a ultrasound residual of 10 mL's. Patient rates pain at 0 on the 0 to 10 pain scale post procedure. documented in this encounter Procedure Notes * Dante Robles M.D. - 06/15/2024 9:30 AM CDTAssociated Order(s): URO UROFLOW REASON FOR VISIT: Uroflow: The patient here for a complex uroflow via calibrated electronic equipment and a residual urine check by ultrasound. FINDINGS: Peak flow 13 ml/sec Average flow 6 ml/sec Total voided volume 104 mls Residual urine 10 ml by ultrasound Valsalva flow pattern IMPRESSION: Low voided volume with low Q max and low postvoid residual. documented in this encounter Plan of Treatment Upcoming Encounters Date Type Department Care Team (Latest Contact Info) Description 09/20/2024 3:00 PM CHAIN REPAIRER Infusion Department of Infusion Therapy in [place], [place] [address] [facility] [place] [address] Amisha Hughes, AZAEL, C.N.P. [address] [place] [phone] 09/27/2024 9:15 AM CHAIN REPAIRER Ancillary Procedure Department of Ophthalmology in [address] [address] Asmita Davies M.D. [address] [place] [phone] 09/27/2024 9:45 AM CHAIN REPAIRER Ancillary Procedure Department of Ophthalmology in [address] [address] Asmita Davies M.D. [address] [place] [phone] 09/27/2024 10:00 AM CHAIN REPAIRER Office Visit Department of Ophthalmology in [address] [phone] Asmita Davies M.D. [address] [place] [phone] 09/27/2024 1:00 PM CHAIN REPAIRER Office Visit [facility] in [address] [phone] Oh Mckeon APRN, C.N.P., M.S.N. [address] [place] [phone] 10/18/2024 1:00 PM CHAIN REPAIRER Comprehensive Visit Department of Obstetrics and Gynecology in [address] [phone] Teresa Epsitia APRN, C.N.P., D.N.P. [address] [place] [phone] documented as of this encounter Procedures Procedure Name Priority Date/Time Associated Diagnosis Comments URO UROFLOW Routine 06/15/2024 9:30 AM CDT Incontinence Urinary documented in this encounter Results * URO Uroflow (06/15/2024 9:30 AM [...] Ashley M.D. UROLOGY ORDERABLES Final R esult documented in this encounter Visit Diagnoses Diagnosis Incontinence Urinary Stress And Urge [N39.46]- Primary Incontinence Urinary documented in this encounter Additional Health Concerns Assessment Noted Time PHQ-9 Depression Total Score: 4 03/02/20 23 12:57 PM CDT documented as of this encounter Care Teams Radio Program Checker Relationship Specialty Start Date End Date Elsewhere, Pcp PCP - General Internal Medicine 08/31/22 documented as of this encounter
--- OUTSIDE RECORDS SUMMARY | 2024-09-10 16:19 | XMS_ITS | Referral Summary ---
Author Organization [facility] Address [address] [place] [address] Care Team Providers Care Land Planner Name Role Phone Elsewhere, Pcp Primary Care Provider Unavailabl e Source Comments Patient records contain information from all sites at [facility]. For routine questions regarding patient records, call [phone] during business hours, M-F 8:00 AM - 5:00 PM Central Time. Record requests for emergency care only can be directed to [phone] at any time.[facility] Encounters Date Type Department Care Team Description 08/19/2024 2:00 PM CDT Infusion Department of Infusion Therapy in [address] [address] Amisha Hughes APRN, C.N.P. Osteoporosis (Primary Dx) Discharge Disposition: Home or Self Care 08/06/2024 11:30 AM CDT Clinical Communication Virtual Review in [address] [phone] Pre-visit Intake 07/19/2024 10:30 AM CDT Infusion Department of Infusion Therapy in [address] [address] Amisha Hughes APRN, C.N.P. Osteoporosis (Primary Dx) Discharge Disposition: Home or Self Care 07/13/2024 Clinical Communication Department of Ophthalmology in [address] [phone] Asmita Davies M.D. 06/24/2024 1:00 PM CDT Infusion Department of Infusion Therapy in [place], [place] [address] [place] [address] Amisha Hughes APRN, C.N.P. Osteoporosis (Primary Dx) 06/15/2024 1:00 PM CDT Comprehensive Visit Department of Orthopedic Surgery in [place], [place] [address] [place] [address] Emil Santoyo, RadhaP.M. Pes Planus Left (Primary Dx); Pes Planus Right; Hallux Valgus Right; Valgus Hindfoot Left; Valgus Hindfoot Right; Claw Toe Acquired Left; Claw Toe Acquired Right; Laxity Ligament 06/15/2024 11:00 AM CDT Office Visit Department of Obstetrics and Gynecology, Division of Urogynecology in [place], [place] [address] [place] [address] Cami Ramos P.A.-C. Urinary Urge Incontinence (Primary Dx); Postmenopausal Atrophic Vaginitis; Lichen Sclerosus; Atrophy Pelvic Muscle Disuse 06/15/2024 9:30 AM CDT Procedure visit Department of Urology in [place], [place] [address] [place] [address] Janee Ashley M.D. Meyers, Tania L, L.P.NHal Incontinence Urinary Stress And Urge [N39.46] (Primary Dx); Incontinence Urinary from Last 3 Months Allergies Active Allergy Reactions Criticality Noted Date [...] Prep: Unknown - previous procedure completed at [facility] but prep used is unavailable Complex Suite: [...] HIV Completed in 2015 HCV Completed in 2015 Problem Noted Date Diagnosed Date Keratoconjunctivitis Sicca [...] to bone pain Evista 60 mg daily 0650-8370 Alendronate 35 mg weekly 9611-2955 Alendronate 70 mg weekly 2005 -April 2011 Drug holiday April 2011 -June 2016 Alendronate 70 mg weekly June 2016-June 2021 Drug holiday 3839-6506 Reclast 04/06/23 PERTINENT ADDITIONAL MEDICAL HISTORY: Breast cancer age 42, s/p left mastectomy. No history of oral glucocorticoid therapy. Reports 2 glasses of wine per month. No history of tobacco use. Assessment & Plan (11/20/2020 8:59 AM TIE MAN): ?? Komal presents with daughter Maryjo for [...] (09/11/2020): Added automatically from request for surgery [id number] Age Related Nuclear Cataract Left Eye 2018 12/25/2020 Cataract Senile Mature 03/03/201612/25 Cataract 11/14/2009 12/25/2020 Immunizations Name Administration Dates Next Due HZV [...] quad (FLUZONE/FLUARIX) (6 months and older)(PF) 10/15/2017 Social History Tobacco Use Types Packs/Day Years Used Date Smoking Tobacco: Never Passive Smoke Exposure: Never Smokeless Tobacco: Never Tobacco Cessation:Counseling Given: Not Answered Alcohol Use Standard Drinks/Week Comments Not Currently 0 (1 standard drink = 0.6 oz pur e alcohol) 2 glasses of wine per month [facility] Utilities Answer Date Recorded In the past 12 months has e [employer], [employer], oil, or water [employer] threatened to shut off services in your [...] week 01/17/2023 How often do you attend up health system or latter day services? More than 4 times per year [...] Answer Date Recorded PHQ-2 Score 0 02/20/2024 [facility] Occupat ional [facility] - Occupational Stress Questionnaire Answer Date [...] Master's degree (e.g., MA, MS, Frances, MEd, EX ASSISTANT/PROGRAM DIRECTOR, SRUTHI) 01/01/2020 Comments No Sex and Gender Information Value Date Recorded Sex Assigned at Female 03/24/2018 4:51 PM CDT Legal Sex Female 6:23 AM TIE MAN Gender Identity Female 03/24/2018 4:51 PM CDT [...] (Latest Contact Info) Description 09/20/2024 3:00 PM TIE MAN Infusion Department of Infusion Therapy in [place], [place] [address] [place] [address] [place] [address] Amisha Hughes, AZAEL, C.N.P. [address] [place] [phone] 09/27/2024 9:15 AM TIE MAN Ancillary Procedure Department of Ophthalmology in [place], [place] [address] [place] [phone] Asmita Davies M.D. [address] [place] [phone] 09/27/2024 9:45 AM TIE MAN Ancillary Procedure Department of Ophthalmology in [place], [place] [address] [phone] Asmita Davies M.D. [address] [place] [phone] 09/27/2024 10:00 AM TIE MAN Office Visit Department of Ophthalmology in [place], [place] [address] [phone] Asmita Davies M.D. [address] [place] [phone] 09/27/2024 1:00 PM TIE MAN Office Visit [facility] in [address] [phone] Oh Mckeon, AZAEL, C.N.P., M.S.N. [address] [place] [phone] 10/18/2024 1:00 PM TIE MAN Comprehensive Visit Department of Obstetrics and Gynecology in [address] [phone] Teresa Espitia APRN, C.N.P., D.N.P. [address] [place] [phone] Medical Devices Implanted Type Area Emulsion Operator Device Identifier Shelf Expiration Date Model / Serial / Lot Conversions - Default Historical Implant Device Implanted:12/23 (Quantity not on file) Hardware e.g. pins/screws /rods Right: Wrist Description:Body Location - Wrist R. Device Status Text - Hardware. Ocular Lens Ocular Lens Right: Eye Description:Lens implant, se parate from the cataract lens. Lens Ja Ac 6.0 X 18.50 - Guillory [id number] Implanted:Qty: 1 on 04/14/2016 Ocular Lens Right: Other/Legacy - See Implant Description Ja Octopus Deploy Description:Device Manufactu rer - Ja Surgical. Body Location - Other. Right. Device Status Text - [id number]. Lens Tcn [id number] Bicnvx +18.5d - [id number] - [id number] Implanted:Qty: 1 on 10/08/2020 by Mike Solorzano M.D. at [facility] Ocular Lens Left: Eye [employer] (Previously STEVE) 08/21/2024 [id number] / [id number] / Procedures Procedure Name Priority Date/Time [...] low Q max and low postvoid residual. us Janee Ashley M.D. UROLOGY ORDERABLES Final R esult * Hemoglobin A1c (02/27/2024 10:21 AM CDT) Hemoglobin A1c, B 5.5 4.0 - 5.6 % 02/27/2024 11:23 AM CDT DTL Blood (Blood, Venous) 02/27/2024 10:21 AM CDT 02/27/2024 10:34 AM CDT us Janee Ashley M.D. LAB BLOOD ADD-ON Final Res ult [facility] [address] [place] [address], [place] DTL [facility] [address] [place] [address] from Last 3 Months or Most Recently Relevant to Health Maintenance Insurance MEDICARE [facility] Advance Directives For more information, please contact: [phone] Documents on File Type Date Recorded Patient Life Sciences Manager Expl anation Advance Directives 11/29/2017 12:00 AM Leg acy document. See document viewer. Advance Directives 05/31/2008 12:00 AM Leg acy document. See document viewer. Care Teams Land Planner Relationship Specialty Start Date End Date Elsewhere, Pcp PCP - General Internal Medicine 08/31/22
--- OUTSIDE RECORDS SUMMARY | 2024-09-10 16:20 | XMS_ITS | Encounter Summary ---
Author Organization [facility] Address [address] [place] [address] Care Team Providers Care Road Freight Brake Coupler Name Role Phone Elsewhere, Pcp Primary Care Provider Unavailabl e Encounter Details Date Type Department Care Team (Late st Contact Info) Description 02/26/2013 Historical Ophthalmology RST OPH Tania Hobbs O.D. [address] [place] [address] Social History Tobacco Use Types Packs/Day Years Used Date Smoking Tobacco: Never Assessed Comments Unknown Sex and Gender Information Value Date Recorded Sex Assigned at Female 03/24/2018 4:51 PM CDT Legal Sex Female 6:23 AM LEAD PHP DEVELOPER Gender Identity Female 03/24/2018 4:51 PM CDT Sexual Orientation Straight 03/24/2018 4: 51 PM CDT documented as of this encounter Progress Notes * Tania Hobbs O.D. - 02/26/2013 1:17 PM CDT Eye General HISTORY OF PRESENT ILLNESS Blurred vision; right eye; x 5 years; slowly progressive; moderate; difficulty while driving at night. Floaters; right eye; not noticed in 1 year. Dryness; both eyes; x 1 year. CBN: No longer taking eye drops she was given by Dr. Owens 02/11/12, took them about 3-4 months. Isworried about having cartact surgery. Feels that health overall is very good. IMPRESSION / REPORT / PLAN Consult requested by: Mari Beltran [id number] #1 Pigmented choroidal nevus right eye Previously followed by Dr. Tobar, pateint was to return to him last year, but did not. Discussed importance of maintiaing followup with patient and her daughter Plan: Refer back to Dr. Noel, with photo, OCT, and US as per his last note. # Cataract OD>OS Visually significant Discussed with patient Removal of cataract OD would help in visualization of #1 Plan: See plan for #1 #3 Early mild low tension glaucoma +progression of optic nerve cupping and oct right eye Tmax 17 goal iop right 11 Started azopt BID OD 01/2012, was to return in 2 months to [facility] Today IOP right at max. Plan: Will restart azopt BID OD, f/u with [facility] in 2-3 months, remineded of importance of follow up #4 Refractive error Astigmatism with presbyopia Plan: Release rx#1, recommend not filling until plan for right eye determined Return with follow up to retina and glaucoma. DIAGNOSIS #1 Pigmented choroidal nevus right eye #3 Early mild low tension glaucoma #4 Refractive error CDM Reports - EYEGEN Id: [id number] Status: Fnl documented in this encounter Plan of Treatment Upcoming Encounters Date Type Department Care Team (Latest Contact Info) Description 09/20/2024 3:00 PM LEAD PHP DEVELOPER Infusion Department of Infusion Therapy in [place], [place] [address] [facility] [place] [address] Amisha Hughes, PRICE CHECKER, C.N.P. [address] [place] [address] 09/27/2024 9:15 AM LEAD PHP DEVELOPER Ancillary Procedure Department of Ophthalmology in [place], [place] [address] [place] [phone] Asmita Davies M.D. [address] [place] [phone] 09/27/2024 9:45 AM LEAD PHP DEVELOPER Ancillary Procedure Department of Ophthalmology in [place], [place] [address] [place] [phone] Asmita Davies M.D. [address] [place] [phone] 09/27/2024 10:00 AM LEAD PHP DEVELOPER Office Visit Department of Ophthalmology in [place], [place] [address] [place] [phone] Asmita Davies M.D. [address] [place] [phone] 09/27/2024 1:00 PM LEAD PHP DEVELOPER Office Visit [facility] in [place], [place] [address] [place] [phone] Oh Mckeon APRN, C.N.P., M.S.N. [address] [place] [phone] 10/18/2024 1:00 PM LEAD PHP DEVELOPER Comprehensive Visit Department of Obstetrics and Gynecology in [place], [place] [address] [place] [phone] Teresa Espitia APRN, C.N.P., D.N.P. [address] [place] [phone] documented as of this encounter Visit Diagnoses Not on filedocumented in this encounter Additional Health Concerns Infection Onset Date Last Indicated Resolved Time COVID19 Pending 10/06/2020 10/06/2020 10/06/2020 6 :04 PM LEAD PHP DEVELOPER documented as of this encounter Care Teams Road Freight Brake Coupler Relationship Specialty Start Date End Date Elsewhere, Pcp PCP - General Internal Medicine 08/31/22 documented as of this encounter
--- OUTSIDE RECORDS SUMMARY | 2024-09-10 16:20 | XMS_ITS | Encounter Summary ---
Author Organization [facility] Address [address] [place] [address] Care Team Providers Care Phlebotomy Manager Name Role Phone Elsewhere, Pcp Primary Care Provider Unavailabl e Encounter Details Date Type Department Care Team (Late st Contact Info) Description 03/30/2013 Historical Ophthalmology RST OPH Debbie Owens M.D. [address] [place] [address] Social History Tobacco Use Types Packs/Day Years Used Date Smoking Tobacco: Never Assessed Comments Unknown Sex and Gender Information Value Date Recorded Sex Assigned at Female 03/24/2018 4:51 PM CDT Legal Sex Female 6:23 AM TIME CLOCK MECHANIC Gender Identity Female 03/24/2018 4:51 PM CDT Sexual Orientation Straight 03/24/2018 4: 51 PM CDT documented as of this encounter Progress Notes * Debbie Owens M.D. - 03/30/2013 10:54 AM CDT Eye General CHIEF COMPLAINT Follow up on early mild low tension glaucoma HISTORY OF PRESENT ILLNESS 78 year old female here for follow up on early mild low tension glaucoma. no change in vision sincelast visit. Blurred vision; right eye; x 5 years; slowly progressive; moderate; difficulty while driving at night. Patient states the floaters have decrease since last visit. Dryness; both eyes; x 1 year. Patient denies any new vision concerns. AGNES - As above. Patient states no changes with her vision. No pain. Using drops as directed. 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 fluid was previously noted -- no longer to see detail due to dense cataract - minimal change since photos Sep 1998 by vascular landmarks 01/20 also TI shows barely to ora at 3; 09/22; continue to follow 04/23; US shows no change in thickness; base appears unchanged but view getting worse 03/22OCT:Right eye: subretinal fluid, retinal thickening, no hole (stable from previous OCT 01/20) oct; 09/22 less subretinal fluid right eye in the fovea; none left eye; GINA shows improvement so consider cataract surgery here; and rtc to see me in 7mos 01/23; harder to see because of cataract; options observation but do not recommend because of density of cataract, enucleation, plaque or removal of cataract to follow; would recommend last option so that we can see the tumor better; to rtc 2-3mos wiht photos, oct and us; [place] right eye #3retinal hole, left eye stable #4 Epiretinal membrane, right eye s/p Grid Photocoagulation s/p erm stripping with bubble/positioning for secondary macular hole 05/21.improvement of vision #5 Sub-foveal fluid, 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 05/21 has actually improved 09/22 by oct 10/21: FA:Right: no leakage; staining of the nevus, but no leakage; macula: no leakage-01/20 actually looking at it there is a small amount of leakage Left: normal see with Dr Martins and this is our thought to try this s/p avastin injection 02/06/0903/22; photos, fa, icg of posterior pole (including optic nerve and macula) and then nasally right eye and oct of optic nerve 03/22; oct shows persistent subretinal fluid under the macula 04/23; hole sealed and no fluid #5 Hx vascular decompensation post pole, right eye per CAM/DMR #7 Cataracts, both worse right eye than left eye Previously GINA shows no improvement in right eye; dense brunescent cataract right eye with poor view of choroidal nevus she does not want to pursue ce right at this time DIAGNOSIS #1 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 [address] [place] [phone] 09/27/2024 9:15 AM TIME CLOCK MECHANIC Ancillary Procedure Department of Ophthalmology in [place], [place] [address] [place] [address] Asmita Davies M.D. [address] [place] [phone] 09/27/2024 9:45 AM TIME CLOCK MECHANIC Ancillary Procedure Department of Ophthalmology in [place], [place] [address] [place] [address] Asmita Davies M.D. [address] [place] [phone] 09/27/2024 10:00 AM TIME CLOCK MECHANIC Office Visit Department of Ophthalmology in [place], [place] [address] [place] [phone] Asmita Davies M.D. [address] [place] [phone] 09/27/2024 1:00 PM TIME CLOCK MECHANIC Office Visit [facility] in [place], [place] [address] [place] [phone] Oh Mckeon APRN, C.N.P., M.S.N. [address] [place] [address] 10/18/2024 1:00 PM TIME CLOCK MECHANIC Comprehensive Visit Department of Obstetrics and Gynecology in [place], [place] [address] [place] [address] Teresa Espitia APRN, C.N.P., D.N.P. [address] [place] [phone] documented as of this encounter Visit Diagnoses Not on filedocumented in this encounter Additional Health Concerns Infection Onset Date Last Indicated Resolved Time COVID19 Pending 10/06/2020 10/06/2020 10/06/2020 6 :04 PM TIME CLOCK MECHANIC documented as of this encounter Care Teams Phlebotomy Manager Relationship Specialty Start Date End Date Elsewhere, Pcp PCP - General Internal Medicine 08/31/22 documented as of this encounter
--- OUTSIDE RECORDS SUMMARY | 2024-09-10 16:20 | XMS_ITS | Encounter Summary ---
Author Organization [facility] Address [address] [place] [address] Care Team Providers Care Station Air Traffic Control Specialist Name Role Phone Elsewhere, Pcp Primary Care Provider Unavailabl e Encounter Details Date Type Department Care Team (Late st Contact Info) Description 06/27/2013 Historical Ophthalmology RST OPH Asmita Davies M.D. [address] [place] [address] Social History Tobacco Use Types Packs/Day Years Used Date Smoking Tobacco: Never Assessed Comments Unknown Sex and Gender Information Value Date Recorded Sex Assigned at Female 03/24/2018 4:51 PM CDT Legal Sex Female 6:23 AM SNOW GROOMER Gender Identity Female 03/24/2018 4:51 PM CDT Sexual Orientation Straight 03/24/2018 4: 51 PM CDT documented as of this encounter Progress Notes * Asmita Davies M.D. - 06/27/2013 2:27 PM CDT Eye General CHIEF COMPLAINT recheck choroidal nevus right eye HISTORY OF PRESENT ILLNESS Patient here for recheck choroidal nevus right eye and ultrasound. Patient states the blurred vision, floaters and dry eyes are the same. Patient denies any new vision concerns. IMPRESSION / REPORT / PLAN 27 Jun 2013 Right Eye : nevus 2.1 x 12.0 [...] to low reflectivity, no extrascleral extension. LS #1 Pigmented choroidal nevus right eye - overlying [...] photos, oct and us; [place] right eye #2 retinal hole, left eye stable #3 Epiretinal membrane, right eye s/p Grid Photocoagulation s/p erm stripping with bubble/positioning for secondary macular hole 05/21.improvement of vision #4 Sub-foveal fluid, right eye Was present prior [...] pole, right eye per CAM/DMR #6 Cataracts, both worse right eye than left eye GINA shows no improvement in right eye; dense brunescent cataract right eye with poor view of choroidal nevus #7 Early mild low tension glaucoma +progression of optic nerve cupping and oct right eye Tmax goal iop right 11 Started azopt BID OD 01/2012 Dr. Owens 03/30/13: patient at goal iop right on azopt bid, continue no drops in the left f/u glaucoma team in 4 months PLAN 06/27/13 Previously recommend cataract surgery in right eye since we cannot adequately visualize the large nevus anymore. Surgery would be a little more complicated since the cataract is more mature, might even need extracap procedure. She is very worried about the risks of surgery and prefers to monitor with ultrasound, although I told her I cannot recommend this choice. We will monitor closely with ultrasound at this time. Follow up with the glaucoma team in the next month or so as ordered by Dr. Owens in March, continue Azopt BID OD Follow up with me in 6 months with ultrasound OD. 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 [address] [place] [phone] 09/27/2024 9:15 AM SNOW GROOMER Ancillary Procedure Department of Ophthalmology in [place], [place] [address] [place] [phone] Asmita Davies M.D. [address] [place] [phone] 09/27/2024 9:45 AM SNOW GROOMER Ancillary Procedure Department of Ophthalmology in [place], [place] [address] [place] [phone] Asmita Davies M.D. [address] [place] [phone] 09/27/2024 10:00 AM SNOW GROOMER Office Visit Department of Ophthalmology in [place], [place] [address] [place] [phone] Asmita Davies M.D. [address] [place] [phone] 09/27/2024 1:00 PM SNOW GROOMER Office Visit [facility] in [place], [place] [address] [place] [phone] Oh Mckeon APRN, C.N.P., M.S.N. [address] [place] [phone] 10/18/2024 1:00 PM SNOW GROOMER Comprehensive Visit Department of Obstetrics and Gynecology in [place], [place] [address] [place] [phone] Teresa Espitia APRN, C.N.P., D.N.P. [address] [place] [phone] documented as of this encounter Visit Diagnoses Not on filedocumented in this encounter Additional Health Concerns Infection Onset Date Last Indicated Resolved Time COVID19 Pending 10/06/2020 10/06/2020 10/06/2020 6 :04 PM SNOW GROOMER documented as of this encounter Care Teams Station Air Traffic Control Specialist Relationship Specialty Start Date End Date Elsewhere, Pcp PCP - General Internal Medicine 08/31/22 documented as of this encounter
--- OUTSIDE RECORDS SUMMARY | 2024-09-10 16:20 | XMS_ITS | Encounter Summary ---
Author Organization [facility] Address [address] [place] [address] Care Team Providers Care Change Advisor Name Role Phone Elsewhere, Pcp Primary Care Provider Unavailabl e Encounter Details Date Type Department Care Team (Late st Contact Info) Description 05/29/2015 Historical Ophthalmology RST OPH Asmita Davies M.D. [address] [place] [address] Social History Tobacco Use Types Packs/Day Years Used Date Smoking Tobacco: Never Assessed Comments Unknown Sex and Gender Information Value Date Recorded Sex Assigned at Female 03/24/2018 4:51 PM CDT Legal Sex Female 6:23 AM SYSTEM CONTROLLER Gender Identity Female 03/24/2018 4:51 PM CDT Sexual Orientation Straight 03/24/2018 4: 51 PM CDT documented as of this encounter Progress Notes * Asmita Davies M.D. - 05/29/2015 1:43 PM CDT Eye General CHIEF COMPLAINT Dorzolamide [TRUSOPT] 2 % drops 1 drop ophthalmic three times a day-right eye put in at 630am. Follow up. HISTORY OF PRESENT ILLNESS Dorzolamide [TRUSOPT] 2 % drops 1 drop ophthalmic three times a day-right eye put in at 630am. Vision is the same. No floaters. No flashes of light. No diplopia. No eye pain. 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 Owens 03/30/13: patient at goal iop right on azopt bid, continue Dr. Gomez 11/2014 no drops in the left Switched to dorzolamide (Trusopt) by Dr. Davies due to high cost of Azopt, TID regime due to increase in IOP 02/25 Radha 24-2 11/28 RE shows early nasal changes with general reduction, LE scatter. Essentially stable both eyes. OCT 11/28: RE suspicious for thinning temporally. LE wnl. SS 6/6. RNFL 70/76. Both eyes stable. Continue current drops, RTC 5-6 months with Radha IMAGING 29 May 2015 US right eye: nevus [...] to low reflectivity, no extrascleral extension. LS PLAN 05/28 Previously recommended cataract surgery in right eye since we cannot adequately visualize the largenevus anymore. Surgery would be more complicated since the cataract is more mature, might even need extracap procedure. She is very worried about the risks of surgery and prefers to monitor with ultrasound, although I told her I cannot recommend this choice. We will continue to monitor closely with ultrasound at this time. Follow up with [facility] in ~6 months to monitor nevus in right eye with ultrasound. coordinate with glaucoma appt on same day if indicated. 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 [address] [place] [phone] 09/27/2024 9:15 AM SYSTEM CONTROLLER Ancillary Procedure Department of Ophthalmology in [place], [place] [address] [place] [phone] Asmita Davies M.D. [address] [place] [phone] 09/27/2024 9:45 AM SYSTEM CONTROLLER Ancillary Procedure Department of Ophthalmology in [place], [place] [address] [place] [phone] Asmita Davies M.D. [address] [place] [phone] 09/27/2024 10:00 AM SYSTEM CONTROLLER Office Visit Department of Ophthalmology in [place], [place] [address] [place] [phone] Asmita Davies M.D. [address] [place] [phone] 09/27/2024 1:00 PM SYSTEM CONTROLLER Office Visit [facility] in [place], [place] [address] [place] [phone] Oh Mckeon APRN, C.N.P., M.S.N. [address] [place] [phone] 10/18/2024 1:00 PM SYSTEM CONTROLLER Comprehensive Visit Department of Obstetrics and Gynecology in [place], [place] [address] [place] [phone] Teresa Espitia APRN, C.N.P., D.N.P. [address] [place] [phone] documented as of this encounter Visit Diagnoses Not on filedocumented in this encounter Additional Health Concerns Infection Onset Date Last Indicated Resolved Time COVID19 Pending 10/06/2020 10/06/2020 10/06/2020 6 :04 PM SYSTEM CONTROLLER documented as of this encounter Care Teams Change Advisor Relationship Specialty Start Date End Date Elsewhere, Pcp PCP - General Internal Medicine 08/31/22 documented as of this encounter
--- OUTSIDE RECORDS SUMMARY | 2024-09-10 16:20 | XMS_ITS | Encounter Summary ---
Author Organization [facility] Address [address] [place] [address] Care Team Providers Care Carton Counter Feeder Name Role Phone Elsewhere, Pcp Primary Care Provider Unavailabl e Encounter Details Date Type Department Care Team (Late st Contact Info) Description 03/27/2014 Historical Ophthalmology RST OPH Erin Gomez O.D. [address] [place] [address] Social History Tobacco Use Types Packs/Day Years Used Date Smoking Tobacco: Never Assessed Comments Unknown Sex and Gender Information Value Date Recorded Sex Assigned at Female 03/24/2018 4:51 PM CDT Legal Sex Female 6:23 AM EARLY MORNING Gender Identity Female 03/24/2018 4:51 PM CDT Sexual Orientation Straight 03/24/2018 4: 51 PM CDT documented as of this encounter Progress Notes * Erin Gomez O.D. - 03/27/2014 11:10 AM CDT Eye General CHIEF COMPLAINT glaucoma HISTORY OF PRESENT ILLNESS Follow up today for early mild low tension glaucoma. No problem with drops--very good compliance reported. IMPRESSION / REPORT / PLAN 27 Jun [...] see the tumor better; to rtc 2-3mos with photos, oct and us; [place] right eye Dr. Davies placed a return visit to review in 6 months from her 12/20/13 visit #2 retinal hole, left eye stable #3 [...] pole, right eye per CAM/DMR #6 Cataracts, both, worse right eye than left eye GINA [...] bid, continue no drops in the left Switched to dorzolamide (Trusopt) by Dr. Davies due to high cost of Azopt, TID regime due to increase in IOP 02/25 Radha 24-2 08/26 RE shows early nasal changes, LE central scatter with 01/25 FL. Essentially stable both eyes. Continue current drops, RTC 4 months with OCT and Radha DIAGNOSIS #1 Pigmented choroidal nevus right eye #2 retinal hole, left eye #3 Epiretinal membrane, right eye #4 Sub-foveal fluid, right eye #5 Hx vascular decompensation post pole, right eye #6 Cataracts, both, worse right eye than left eye #7 Early mild low tension glaucoma CDM Reports - EYEGEN Id: [id number] Status: Fnl documented in this encounter Plan of Treatment Upcoming Encounters Date Type Department Care Team (Latest Contact Info) Description 09/20/2024 3:00 PM EARLY MORNING Infusion Department of Infusion Therapy in [place], [place] [address] [place] [address] Amisha Hughes, AZAEL, C.N.P. [address] [place] [phone] 09/27/2024 9:15 AM EARLY MORNING Ancillary Procedure Department of Ophthalmology in [place], [place] [address] [place] [phone] Asmita Davies M.D. [address] [place] [phone] 09/27/2024 9:45 AM EARLY MORNING Ancillary Procedure Department of Ophthalmology in [place], [place] [address] [place] [phone] Asmita Davies M.D. [address] [place] [phone] 09/27/2024 10:00 AM EARLY MORNING Office Visit Department of Ophthalmology in [place], [place] [address] [place] [phone] Asmita Davies M.D. [address] [place] [phone] 09/27/2024 1:00 PM EARLY MORNING Office Visit [facility] in [place], [place] [address] [place] [phone] Oh Mckeon APRN, C.N.P., M.S.N. [address] [place] [phone] 10/18/2024 1:00 PM EARLY MORNING Comprehensive Visit Department of Obstetrics and Gynecology in [place], [place] [address] [place] [address] Teresa Espitia APRN, C.N.P., D.N.P. [address] [place] [phone] documented as of this encounter Visit Diagnoses Not on filedocumented in this encounter Additional Health Concerns Infection Onset Date Last Indicated Resolved Time COVID19 Pending 10/06/2020 10/06/2020 10/06/2020 6 :04 PM EARLY MORNING documented as of this encounter Care Teams Carton Counter Feeder Relationship Specialty Start Date End Date Elsewhere, Pcp PCP - General Internal Medicine 08/31/22 documented as of this encounter
--- OUTSIDE RECORDS SUMMARY | 2024-09-10 16:20 | XMS_ITS | Encounter Summary ---
Author Organization [facility] Address [address] [place] [address] Care Team Providers Care Digital Tech Name Role Phone Elsewhere, Pcp Primary Care Provider Unavailabl e Encounter Details Date Type Department Care Team (Late st Contact Info) Description 02/11/2012 Historical Ophthalmology RST OPH Domingo Tobar M.D. Social History Tobacco Use Types Packs/Day Years Used Date Smoking Tobacco: Never Assessed Comments Unknown Sex and Gender Information Value Date Recorded Sex Assigned at Female 03/24/2018 4:51 PM CDT Legal Sex Female 6:23 AM STEM ROLLER Gender Identity Female 03/24/2018 4:51 PM CDT Sexual Orientation Straight 03/24/2018 4: 51 PM CDT documented as of this encounter Progress Notes * Domingo Tobar M.D. - 02/11/2012 11:36 AM CDT Eye General CHIEF COMPLAINT Follow up on early mild low tension glaucoma HISTORY OF PRESENT ILLNESS This is a 77 year old female here for follow up on early mild low tension glaucoma. This patient also has visually significant cataracts both eyes, pigmented choroidal nevus, right eye, retinal hole,left eye, epiretinal membrane, right eye, and sub-foveal fluid, right eye. Patient reports no change in vision since her last visit. Denies eye pain or headaches. No new eye concerns. CK: f/u LTG. Tmax 17/15. No gtts currently for glaucoma. +hx choroidal nevus right. + hx PPVX for macular hole right, +erm right. Notes glare and blur right>left. +distortion right All information was transferred from Dr. Tobar's CDM on 02/11/12. IMPRESSION / REPORT / PLAN 02/11/2012 US right eye: nevus 2.1 - [...] nevus right eye - overlying subretinal fluid present - minimal change since photos Sep 1998 [...] optic nerve cupping and oct right eye (avf right remains stable) iop, disc and avf left stable Tmax 17/15 goal iop right 11 start azopt bid right (I am avoiding prostaglandin right given new pigment in angle right and hx choroidal nevus) no gtts left f/u 2 months clk DIAGNOSIS #1 Pigmented choroidal nevus right eye #2 retinal hole, left eye #3 Epiretinal membrane, right eye #4 Sub-foveal fluid, right eye #5 Hx vascular decompensation post pole, right eye #6 Cataracts, both worse right eye than left eye #7 Early mild low tension glaucoma CDM Reports - EYEGEN Id: [id number] Status: Fnl documented in this encounter Plan of Treatment Upcoming Encounters Date Type Department Care Team (Latest Contact Info) Description 09/20/2024 3:00 PM STEM ROLLER Infusion Department of Infusion Therapy in [address] [place] [address] Amisha Hughes APRN, C.N.P. [address] [place] [phone] 09/27/2024 9:15 AM STEM ROLLER Ancillary Procedure Department of Ophthalmology in [place], [place] [address] [place] [phone] Asmita Davies M.D. [address] [place] [phone] 09/27/2024 9:45 AM STEM ROLLER Ancillary Procedure Department of Ophthalmology in [place], [place] [address] [place] [phone] Asmita Davies M.D. [address] [place] [phone] 09/27/2024 10:00 AM STEM ROLLER Office Visit Department of Ophthalmology in [place], [place] [address] [place] [phone] Asmita Davies M.D. [address] [place] [phone] 09/27/2024 1:00 PM STEM ROLLER Office Visit [facility] in [address] [phone] Oh Mckeon, AZAEL, C.N.P., M.S.N. [address] [place] [phone] 10/18/2024 1:00 PM STEM ROLLER Comprehensive Visit Department of Obstetrics and Gynecology in [address] [phone] Teresa Espitia APRN, C.N.P., D.N.P. [address] [place] [phone] documented as of this encounter Visit Diagnoses Not on filedocumented in this encounter Additional Health Concerns Infection Onset Date Last Indicated Resolved Time COVID19 Pending 10/06/2020 10/06/2020 10/06/2020 6 :04 PM STEM ROLLER documented as of this encounter Care Teams Digital Tech Relationship Specialty Start Date End Date Elsewhere, Pcp PCP - General Internal Medicine 08/31/22 documented as of this encounter
--- OUTSIDE RECORDS SUMMARY | 2024-09-10 16:20 | XMS_ITS | Encounter Summary ---
Author Organization [facility] Address [address] [place] [address] Care Team Providers Care Conflicts Analyst Name Role Phone Elsewhere, Pcp Primary Care Provider Unavailabl e Encounter Details Date Type Department Care Team (Late st Contact Info) Description 03/08/2013 Historical Ophthalmology RST OPH Asmita Davies M.D. [address] [place] [address] Social History Tobacco Use Types Packs/Day Years Used Date Smoking Tobacco: Never Assessed Comments Unknown Sex and Gender Information Value Date Recorded Sex Assigned at Female 03/24/2018 4:51 PM CDT Legal Sex Female 6:23 AM FIELD SPECIALIST Gender Identity Female 03/24/2018 4:51 PM CDT Sexual Orientation Straight 03/24/2018 4: 51 PM CDT documented as of this encounter Progress Notes * Asmita Davies M.D. - 03/08/2013 7:58 AM CDT Eye General CHIEF COMPLAINT chorodial nevus HISTORY OF PRESENT ILLNESS Patient here for chorodial nevus and photos. Blurred vision; right eye; x 5 years; slowly progressive; moderate; difficulty while driving at night. Patient states the floaters have decrease since last visit. Dryness; both eyes; x 1 year. Patient denies any new vision concerns. IMPRESSION / REPORT / PLAN The following tests have been completed and need interpretation. OCT macula, Autofluorescence. FAF:very poor view plus excess of fluorescein in eyes. ZK 03/08/13 Spectralis: right eye - abnml [...] nevus #7 Early mild low tension glaucoma -- Saw Dr. Hobbs 02/26/13 +progression of optic nerve cupping and oct right eye Tmax goal iop right 11 Started azopt BID OD 01/2012, was to return in 2 months to CLK Today IOP right at max. Plan: Will restart azopt BID OD, f/u with CLK in 2-3 months, remineded of importance of follow up PLAN 03/08/13 Recommend cataract surgery in right eye since we cannot adequately visualize the large nevus anymore. Surgery would be a little more complicated since the cataract is more mature, might even need extracap procedure. She is very worried about the risks of surgery and would like to think about it. (she would prefer to monitor with ultrasound, but I told her I cannot recommend this choice.) If she would like surgery sooner than May, then I will ask the other cataract surgeons if anyone has OR time available. Follow up with Dr. Owens in 2-3 months (by May 2013) as previously planned If she does not have cataract surgery by May, then follow up with me in 4 months with ultrasound. DIAGNOSIS #1 Pigmented choroidal nevus right eye #2 retinal hole, left eye #3 Epiretinal membrane, right eye #4 Sub-foveal fluid, right eye #5 Hx vascular decompensation post pole, right eye #6 Cataracts, both worse right eye than left eye #7 Early mild low tension glaucoma -- Saw Dr. Hobbs 02/26/13 CDM Reports - EYEGEN Id: [id number] Status: Fnl documented in this encounter Plan of Treatment Upcoming Encounters Date Type Department Care Team (Latest Contact Info) Description 09/20/2024 3:00 PM FIELD SPECIALIST Infusion Department of Infusion Therapy in [place], [place] [address] [place] [address] Amisha Hughes, EDGE KITTER, C.N.P. [address] [place] [phone] 09/27/2024 9:15 AM FIELD SPECIALIST Ancillary Procedure Department of Ophthalmology in [place], [place] [address] [place] [phone] Asmita Davies M.D. [address] [place] [phone] 09/27/2024 9:45 AM FIELD SPECIALIST Ancillary Procedure Department of Ophthalmology in [place], [place] [address] [place] [phone] Asmita Davies M.D. [address] [place] [phone] 09/27/2024 10:00 AM FIELD SPECIALIST Office Visit Department of Ophthalmology in [place], [place] [address] [place] [phone] Asmita Davies M.D. [address] [place] [phone] 09/27/2024 1:00 PM FIELD SPECIALIST Office Visit [facility] in [place], [place] [address] [place] [phone] Oh Mckeon, AZAEL, C.N.P., M.S.N. [address] [place] [phone] 10/18/2024 1:00 PM FIELD SPECIALIST Comprehensive Visit Department of Obstetrics and Gynecology in [place], [place] [address] [place] [phone] Teresa Espitia APRN, C.N.P., D.N.P. [address] [place] [phone] documented as of this encounter Visit Diagnoses Not on filedocumented in this encounter Additional Health Concerns Infection Onset Date Last Indicated Resolved Time COVID19 Pending 10/06/2020 10/06/2020 10/06/2020 6 :04 PM FIELD SPECIALIST documented as of this encounter Care Teams Conflicts Analyst Relationship Specialty Start Date End Date Elsewhere, Pcp PCP - General Internal Medicine 08/31/22 documented as of this encounter
--- OUTSIDE RECORDS SUMMARY | 2024-09-10 16:20 | XMS_ITS | Encounter Summary ---
Author Organization [facility] Address [address] [place] [address] Care Team Providers Care Visual Effects Artist Name Role Phone Elsewhere, Pcp Primary Care Provider Unavailabl e Encounter Details Date Type Department Care Team (Late st Contact Info) Description 12/20/2013 Historical Ophthalmology RST OPH Asmita Davies M.D. [address] [place] [address] Social History Tobacco Use Types Packs/Day Years Used Date Smoking Tobacco: Never Assessed Comments Unknown Sex and Gender Information Value Date Recorded Sex Assigned at Female 03/24/2018 4:51 PM CDT Legal Sex Female 6:23 AM FINANCIAL ENGINEER Gender Identity Female 03/24/2018 4:51 PM CDT Sexual Orientation Straight 03/24/2018 4: 51 PM CDT documented as of this encounter Progress Notes * Asmita Davies M.D. - 12/20/2013 1:28 PM CST Eye General CHIEF COMPLAINT recheck Nevus Choroid R HISTORY OF PRESENT ILLNESS Patient here for Nevus Choroid Right and ultrasound. Patient states the blurred vision and dry eyesare the same. Patient denies ocular pain, floaters or new vision concerns. IMPRESSION / REPORT / PLAN 20 Dec 2013 US right eye: nevus [...] bid, continue no drops in the left Dr. Gomez 08/2013: Radha 24-2 08/26 RE shows early nasal changes, LE central scatter with 01/25 FL. Essentially stable both eyes. IOP too high today but has been out of her Azopt. 09/12/2013: Restart drops. RTC 6 months with IOP check. PLAN 12/20/13 Previously recommend cataract surgery in right eye [...] monitor closely with ultrasound at this time. Her IOP is too high today despite Azopt BID OD (last visit in Oct she had run out of Azopt), will increase to TID OD. When she finishes the current supply she would like to switch to something cheaper, so we will callin a script for Dorzolamide TID OD. Follow up with me for IOP check in 6wks, then Follow up in 6 months with ultrasound OD. DIAGNOSIS #1 Pigmented choroidal nevus right eye #2 retinal hole, left eye #3 Epiretinal membrane, right eye #4 Sub-foveal fluid, right eye #5 Hx vascular decompensation post pole, right eye #6 Cataracts, both worse right eye than left eye #7 Early mild low tension glaucoma CDM Reports - EYEGEN Id: [id number] Status: Fnl documented in this encounter Plan of Treatment Upcoming Encounters Date Type Department Care Team (Latest Contact Info) Description 09/20/2024 3:00 PM FINANCIAL ENGINEER Infusion Department of Infusion Therapy in [place], [place] [address] [place] [address] [place] [address] Amisha Hughes APRN, C.N.P. [address] [place] [phone] 09/27/2024 9:15 AM FINANCIAL ENGINEER Ancillary Procedure Department of Ophthalmology in [place], [place] [address] [place] [phone] Asmita Davies M.D. [address] [place] [phone] 09/27/2024 9:45 AM FINANCIAL ENGINEER Ancillary Procedure Department of Ophthalmology in [place], [place] [address] [place] [phone] Asmita Davies M.D. [address] [place] [phone] 09/27/2024 10:00 AM FINANCIAL ENGINEER Office Visit Department of Ophthalmology in [place], [place] [address] [place] [phone] Asmita Davies M.D. [address] [place] [phone] 09/27/2024 1:00 PM FINANCIAL ENGINEER Office Visit [facility] in [place], [place] [address] [place] [phone] Oh Mckeon APRN, C.N.P., M.S.N. [address] [place] [phone] 10/18/2024 1:00 PM FINANCIAL ENGINEER Comprehensive Visit Department of Obstetrics and Gynecology in [address] [phone] Teresa Espitia APRN, C.N.P., D.N.P. [address] [place] [phone] documented as of this encounter Visit Diagnoses Not on filedocumented in this encounter Additional Health Concerns Infection Onset Date Last Indicated Resolved Time COVID19 Pending 10/06/2020 10/06/2020 10/06/2020 6 :04 PM FINANCIAL ENGINEER documented as of this encounter Care Teams Visual Effects Artist Relationship Specialty Start Date End Date Elsewhere, Pcp PCP - General Internal Medicine 08/31/22 documented as of this encounter
--- OUTSIDE RECORDS SUMMARY | 2024-09-10 16:20 | XMS_ITS | Encounter Summary ---
Author Organization [facility] Address [address] [place] [address] Care Team Providers Care Straw Hat Brim Raiser Operator Name Role Phone Elsewhere, Pcp Primary Care Provider Unavailabl e Encounter Details Date Type Department Care Team (Late st Contact Info) Description 02/25/2014 Historical Ophthalmology RST OPH Asmita Davies M.D. [address] [place] [address] Social History Tobacco Use Types Packs/Day Years Used Date Smoking Tobacco: Never Assessed Comments Unknown Sex and Gender Information Value Date Recorded Sex Assigned at Female 03/24/2018 4:51 PM CDT Legal Sex Female 6:23 AM MIXOLOGIST Gender Identity Female 03/24/2018 4:51 PM CDT Sexual Orientation Straight 03/24/2018 4: 51 PM CDT documented as of this encounter Progress Notes * Asmita Davies M.D. - 02/25/2014 11:07 AM CDT Eye General CHIEF COMPLAINT Return visit HISTORY OF PRESENT ILLNESS Patient denies changes or new concerns since last visit. WMS: She ran out of Azopt Tuesday, just getting Trusopt today. IMPRESSION / REPORT / PLAN Here for IOP check only, also requests refraction. Not examined today: #1 Pigmented choroidal nevus right eye #2 [...] RTC 6 months with IOP check. PLAN 02/25/14 Previously recommend cataract surgery in right eye [...] monitor closely with ultrasound at this time. Refraction today at her request with release of Rx (last refraction was 02/2013 but she was not given a script pending other evaluations.) Her IOP OD is too high again today, but she ran out of Azopt on Tuesday (was using TID) and was not able to get Trusopt until today We switched to Trusopt because Azopt was very expensive Will have her see the glaucoma team in the next 4wks for repeat IOP check since she has been off gtts for a few days. Further glaucoma follow up per glaucoma team. Follow up with [facility] in 4 months to monitor nevus in right eye with ultrasound. DIAGNOSIS #1 Pigmented choroidal nevus right eye #2 retinal hole, left eye #3 Epiretinal membrane, right eye #4 Sub-foveal fluid, right eye #5 Hx vascular decompensation post pole, right eye #6 Cataracts, both worse right eye than left eye #7 Early mild low tension glaucoma CDM Reports - EYEGEN Id: [id number] Status: Fnl documented in this encounter Plan of Treatment Upcoming Encounters Date Type Department Care Team (Latest Contact Info) Description 09/20/2024 3:00 PM MIXOLOGIST Infusion Department of Infusion Therapy in [place], [place] [address] [place] [address] Amisha Hughes APRN, C.N.P. [address] [place] [phone] 09/27/2024 9:15 AM MIXOLOGIST Ancillary Procedure Department of Ophthalmology in [place], [place] [address] [place] [phone] Asmita Davies M.D. [address] [place] [phone] 09/27/2024 9:45 AM MIXOLOGIST Ancillary Procedure Department of Ophthalmology in [place], [place] [address] [place] [phone] Asmita Davies M.D. [address] [place] [phone] 09/27/2024 10:00 AM MIXOLOGIST Office Visit Department of Ophthalmology in [place], [place] [address] [place] [phone] Asmita Davies M.D. [address] [place] [phone] 09/27/2024 1:00 PM MIXOLOGIST Office Visit [facility] in [place], [place] [address] [place] [phone] Oh Mckeon APRN, C.N.P., M.S.N. [address] [place] [phone] 10/18/2024 1:00 PM MIXOLOGIST Comprehensive Visit Department of Obstetrics and Gynecology in [place], [place] [address] [place] [phone] Teresa Espitia APRN, C.N.P., D.N.P. [address] [place] [phone] documented as of this encounter Visit Diagnoses Not on filedocumented in this encounter Additional Health Concerns Infection Onset Date Last Indicated Resolved Time COVID19 Pending 10/06/2020 10/06/2020 10/06/2020 6 :04 PM MIXOLOGIST documented as of this encounter Care Teams Straw Hat Brim Raiser Operator Relationship Specialty Start Date End Date Elsewhere, Pcp PCP - General Internal Medicine 08/31/22 documented as of this encounter
--- OUTSIDE RECORDS SUMMARY | 2024-09-10 16:20 | XMS_ITS | Encounter Summary ---
Author Organization [facility] Address [address] [place] [address] Care Team Providers Care Court Crier Name Role Phone Elsewhere, Pcp Primary Care Provider Unavailabl e Encounter Details Date Type Department Care Team (Late st Contact Info) Description 05/13/2016 Historical Ophthalmology RST OPH Mike Solorzano M.D. [address] [place] [address] Social History Tobacco Use Types Packs/Day Years Used Date Smoking Tobacco: Never Assessed Comments Unknown Sex and Gender Information Value Date Recorded Sex Assigned at Female 03/24/2018 4:51 PM CDT Legal Sex Female 6:23 AM HAMMERER TAB Gender Identity Female 03/24/2018 4:51 PM CDT Sexual Orientation Straight 03/24/2018 4: 51 PM CDT documented as of this encounter Progress Notes * Mike Solorzano M.D. - 05/13/2016 10:03 AM CDT Eye General CHIEF COMPLAINT S/p Right Extracapsular Cataract extraction with intraocular lens implant HISTORY OF PRESENT ILLNESS Patient denies ocular pain. Patient states that vision seems to be improving since last visit. IMPRESSION / REPORT / PLAN #1 s/p ECCE/IOL, right eye. Doing well, though vision should be better based on anterior segment exam. Cut 1 suture @075 to reduce astigmatism Will recheck on Jun 15 to see if can improve further, but vision might be limited by macula, see below. #2 Pigmented choroidal nevus right eye Seeing WMS today #3 s/p macular hole repair, right eye s/p PPV/MP Get OCT macular to rule CME or open hole.....see #1 #4 Hx vascular decompensation post pole, right eye per CAM/DMR #5 Low tension glaucoma, right eye CCT: 558/559; Tmax 17/15 Goal IOP right eye 11 At goal today. Continue drops and care with glaucoma team. 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 DIAGNOSIS #1 s/p ECCE/IOL, right eye. 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 [address] [place] [address] 09/27/2024 9:15 AM HAMMERER TAB Ancillary Procedure Department of Ophthalmology in [place], [place] [address] [place] [phone] Asmita Davies M.D. [address] [place] [phone] 09/27/2024 9:45 AM HAMMERER TAB Ancillary Procedure Department of Ophthalmology in [place], [place] [address] [place] [phone] Asmita Dvaies M.D. [address] [place] [phone] 09/27/2024 10:00 AM HAMMERER TAB Office Visit Department of Ophthalmology in [place], [place] [address] [place] [phone] Asmita Davies M.D. [address] [place] [phone] 09/27/2024 1:00 PM HAMMERER TAB Office Visit [facility] in [place], [place] [address] [place] [phone] Oh Mckeon APRN, C.N.P., M.S.N. [address] [place] [phone] 10/18/2024 1:00 PM HAMMERER TAB Comprehensive Visit Department of Obstetrics and Gynecology in [place], [place] [address] [place] [phone] Teresa Espitia APRN, C.N.P., D.N.P. [address] [place] [phone] documented as of this encounter Visit Diagnoses Not on filedocumented in this encounter Additional Health Concerns Infection Onset Date Last Indicated Resolved Time COVID19 Pending 10/06/2020 10/06/2020 10/06/2020 6 :04 PM HAMMERER TAB documented as of this encounter Care Teams Court Crier Relationship Specialty Start Date End Date Elsewhere, Pcp PCP - General Internal Medicine 08/31/22 documented as of this encounter
--- OUTSIDE RECORDS SUMMARY | 2024-09-10 16:20 | XMS_ITS | Encounter Summary ---
Author Organization [facility] Address [address] [place] [address] Care Team Providers Care Grappler Name Role Phone Elsewhere, Pcp Primary Care Provider Unavailabl e Encounter Details Date Type Department Care Team (Late st Contact Info) Description 04/15/2016 Historical Ophthalmology RST OPH Mike Solorzano M.D. [address] [place] [address] Social History Tobacco Use Types Packs/Day Years Used Date Smoking Tobacco: Never Assessed Comments Unknown Sex and Gender Information Value Date Recorded Sex Assigned at Female 03/24/2018 4:51 PM CDT Legal Sex Female 6:23 AM COUNTER HOP Gender Identity Female 03/24/2018 4:51 PM CDT Sexual Orientation Straight 03/24/2018 4: 51 PM CDT documented as of this encounter Progress Notes * Mike Solorzano M.D. - 04/15/2016 7:45 AM CDT Eye General CHIEF COMPLAINT 1 day post Right Extracapsular Cataract extraction with intraocular lens implant. HISTORY OF PRESENT ILLNESS 1 day post, Right Extracapsular Cataract extraction with intraocular lens implant. Little irritatedfeeling. IMPRESSION / REPORT / PLAN #1 s/p ECCE/IOL, right eye. Doing well. Moxifloxacin 0.5%, 1 drop 4x/day for 1 week into operative eye. Prednisolone acetate 1% 4x/day, then taper by 1drop/day each week into operative eye as per writteninstructions. Wear shield at night and glasses during the day. Call if decreased vision, increased photophobia, pain, discharge or increased redness occurs. Instruction pamphlet given, Care following cataract surgery ( 2586-86). Follow-up in 3-4 weeks. #2 Pigmented choroidal nevus right eye No view due to #1 No growth documented by B scan since 2007 #3 s/p macular hole repair, right eye s/p PPV/MP #4 Hx vascular decompensation post pole, right [...] outside diagnosis CDM Reports - EYEGEN Id: [id number] Status: Fnl documented in this encounter Plan of Treatment Upcoming Encounters Date Type Department Care Team (Latest Contact Info) Description 09/20/2024 3:00 PM COUNTER HOP Infusion Department of Infusion Therapy in [place], [place] [address] [place] [address] Amisha Hughes, AZAEL, C.N.P. [address] [place] [phone] 09/27/2024 9:15 AM COUNTER HOP Ancillary Procedure Department of Ophthalmology in [place], [place] [address] [place] [phone] Asmita Davies M.D. [address] [place] [phone] 09/27/2024 9:45 AM COUNTER HOP Ancillary Procedure Department of Ophthalmology in [place], [place] [address] [place] [phone] Asmita Davies M.D. [address] [place] [phone] 09/27/2024 10:00 AM COUNTER HOP Office Visit Department of Ophthalmology in [place], [place] [address] [place] [phone] Asmita Davies M.D. [address] [place] [phone] 09/27/2024 1:00 PM COUNTER HOP Office Visit [facility] in [place], [place] [address] [place] [phone] Oh Mckeon APRN, C.N.P., M.S.N. [address] [place] [phone] 10/18/2024 1:00 PM COUNTER HOP Comprehensive Visit Department of Obstetrics and Gynecology in [place], [place] [address] [place] [phone] Teresa Espitia APRN, C.N.P., D.N.P. [address] [place] [phone] documented as of this encounter Visit Diagnoses Not on filedocumented in this encounter Additional Health Concerns Infection Onset Date Last Indicated Resolved Time COVID19 Pending 10/06/2020 10/06/2020 10/06/2020 6 :04 PM COUNTER HOP documented as of this encounter Care Teams Grappler Relationship Specialty Start Date End Date Elsewhere, Pcp PCP - General Internal Medicine 08/31/22 documented as of this encounter
--- OUTSIDE RECORDS SUMMARY | 2024-09-10 16:20 | XMS_ITS | Encounter Summary ---
Author Organization [facility] Address [address] [place] [address] Care Team Providers Care Manager Regulatory Name Role Phone Elsewhere, Pcp Primary Care Provider Unavailabl e Encounter Details Date Type Department Care Team (Late st Contact Info) Description 05/13/2016 Historical Ophthalmology RST OPH Asmita Davies M.D. [address] [place] [address] Social History Tobacco Use Types Packs/Day Years Used Date Smoking Tobacco: Never Assessed Comments Unknown Sex and Gender Information Value Date Recorded Sex Assigned at Female 03/24/2018 4:51 PM CDT Legal Sex Female 6:23 AM JUNIOR ASSISTANT MANAGER Gender Identity Female 03/24/2018 4:51 PM CDT Sexual Orientation Straight 03/24/2018 4: 51 PM CDT documented as of this encounter Progress Notes * Asmita Davies M.D. - 05/13/2016 1:54 PM CDT Eye General CHIEF COMPLAINT S/p Right Extracapsular Cataract extraction with intraocular lens implant HISTORY OF PRESENT ILLNESS Patient denies ocular pain. Patient states that vision seems to be improving since last visit. MBC - As above. WMS: Vision seems to have been getting a little better steadily, but not markedly improved comparedto before surgery, although definitely brighter. IMPRESSION / REPORT / PLAN #1 Pigmented [...] 15 to see if can improve further IMAGING 13 May 2016 color photos: confirm exam [...] low reflectivity, no extrascleral extension. LS PLAN 04/29: Exam, photos, and US after cataract surgery demonstrates stable nevus size. VA OD has not improved as much as expected, cannot explain vision based on macular OCT. Dr. Solorzano cut a suture today to decrease some of the corneal astigmatism; plans to see her again on06/15. I will not be here that week, but we will update HVF and Cirrus OCT as well as repeat the Spectralis OCT of the macula and obtain FA to evaluate perfusion. Nevus US & color montage can be repeated in 1 year. Sooner follow up with WMS to be determined after Aug testing DIAGNOSIS #1 Pigmented choroidal nevus right eye [...] right eye CDM Reports - EYEGEN Id: [id number] Status: Fnl documented in this encounter Plan of Treatment Upcoming Encounters Date Type Department Care Team (Latest Contact Info) Description 09/20/2024 3:00 PM JUNIOR ASSISTANT MANAGER Infusion Department of Infusion Therapy in [place], [place] [address] [place] [address] Amisha Hughes, AZAEL, C.N.P. [address] [place] [phone] 09/27/2024 9:15 AM JUNIOR ASSISTANT MANAGER Ancillary Procedure Department of Ophthalmology in [place], [place] [address] [place] [phone] Asmita Davies M.D. [address] [place] [phone] 09/27/2024 9:45 AM JUNIOR ASSISTANT MANAGER Ancillary Procedure Department of Ophthalmology in [place], [place] [address] [place] [phone] Asmita Davies M.D. [address] [place] [phone] 09/27/2024 10:00 AM JUNIOR ASSISTANT MANAGER Office Visit Department of Ophthalmology in [place], [place] [address] [place] [phone] Asmita Davies M.D. [address] [place] [phone] 09/27/2024 1:00 PM JUNIOR ASSISTANT MANAGER Office Visit [facility] in [address] [phone] Oh Mckeon APRN, C.N.P., M.S.N. [address] [place] [phone] 10/18/2024 1:00 PM JUNIOR ASSISTANT MANAGER Comprehensive Visit Department of Obstetrics and Gynecology in [address] [phone] Teresa Espitia APRN, C.N.P., D.N.P. [address] [place] [phone] documented as of this encounter Visit Diagnoses Not on filedocumented in this encounter Additional Health Concerns Infection Onset Date Last Indicated Resolved Time COVID19 Pending 10/06/2020 10/06/2020 10/06/2020 6 :04 PM JUNIOR ASSISTANT MANAGER documented as of this encounter Care Teams Manager Regulatory Relationship Specialty Start Date End Date Elsewhere, Pcp PCP - General Internal Medicine 10/18/22 documented as of this encounter
--- OUTSIDE RECORDS SUMMARY | 2024-09-10 16:20 | XMS_ITS | Encounter Summary ---
Author Organization [facility] Address [address] [place] [address] Care Team Providers Care Review Appraiser Name Role Phone Elsewhere, Pcp Primary Care Provider Unavailabl e Encounter Details Date Type Department Care Team (Late st Contact Info) Description 03/03/2016 Historical Ophthalmology RST OPH Mike Solorzano M.D. [address] [place] [address] Social History Tobacco Use Types Packs/Day Years Used Date Smoking Tobacco: Never Assessed Comments Unknown Sex and Gender Information Value Date Recorded Sex Assigned at Female 03/24/2018 4:51 PM CDT Legal Sex Female 6:23 AM OBSTETRICIAN/GYNECOLOGIST Gender Identity Female 03/24/2018 4:51 PM CDT Sexual Orientation Straight 03/24/2018 4: 51 PM CDT documented as of this encounter Progress Notes * Mike Solorzano M.D. - 03/03/2016 8:19 AM CDT Eye General CHIEF COMPLAINT cataract evaluation right eye HISTORY OF PRESENT ILLNESS Blurred vision; right eye; distance and near; has gradually gotten worse x several years. The blurring interferes with night time driving. Still working multimedia developer; having trouble distinguishing numbers for accounting. Taking 20 mg of Xarelto daily IMPRESSION / REPORT / PLAN #1 Cataract, right eye >> left eye Dense brunescent lens right eye with poor view of choroidal nevus Not amenable to phaco, would require ECCE....discussed increased complexity and slight increased risk with patient. Plan: ECCE/IOL, right eye Might need trypan and hooks Aim for emmetropia/mild myopia. Get IOLs. #2 Pigmented choroidal nevus right eye No [...] for 2 days for #1. 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 [address] [place] [phone] 09/27/2024 9:15 AM OBSTETRICIAN/GYNECOLOGIST Ancillary Procedure Department of Ophthalmology in [place], [place] [address] [place] [phone] Asmita Davies M.D. [address] [place] [phone] 09/27/2024 9:45 AM OBSTETRICIAN/GYNECOLOGIST Ancillary Procedure Department of Ophthalmology in [place], [place] [address] [place] [phone] Asmita Davies M.D. [address] [place] [phone] 09/27/2024 10:00 AM OBSTETRICIAN/GYNECOLOGIST Office Visit Department of Ophthalmology in [place], [place] [address] [place] [phone] Asmita Davies M.D. [address] [place] [phone] 09/27/2024 1:00 PM OBSTETRICIAN/GYNECOLOGIST Office Visit [facility] in [place], [place] [address] [place] [phone] Oh Mckeon APRN, C.N.P., M.S.N. [address] [place] [phone] 10/18/2024 1:00 PM OBSTETRICIAN/GYNECOLOGIST Comprehensive Visit Department of Obstetrics and Gynecology in [place], [place] [address] [place] [phone] Teresa Espitia APRN, C.N.P., D.N.P. [address] [place] [phone] documented as of this encounter Visit Diagnoses Not on filedocumented in this encounter Additional Health Concerns Infection Onset Date Last Indicated Resolved Time COVID19 Pending 10/06/2020 10/06/2020 10/06/2020 6 :04 PM OBSTETRICIAN/GYNECOLOGIST documented as of this encounter Care Teams Review Appraiser Relationship Specialty Start Date End Date Elsewhere, Pcp PCP - General Internal Medicine 08/31/22 documented as of this encounter
--- OUTSIDE RECORDS SUMMARY | 2024-09-10 16:20 | XMS_ITS | Encounter Summary ---
Author Organization [facility] Address [address] [place] [address] Care Team Providers Care Lockstitch Lining Setter Name Role Phone Elsewhere, Pcp Primary Care Provider Unavailabl e Encounter Details Date Type Department Care Team (Late st Contact Info) Description 06/25/2014 Historical Ophthalmology RST OPH Asmita Davies M.D. [address] [place] [address] Social History Tobacco Use Types Packs/Day Years Used Date Smoking Tobacco: Never Assessed Comments Unknown Sex and Gender Information Value Date Recorded Sex Assigned at Female 03/24/2018 4:51 PM CDT Legal Sex Female 6:23 AM DRAPERY SEWER HAND Gender Identity Female 03/24/2018 4:51 PM CDT Sexual Orientation Straight 03/24/2018 4: 51 PM CDT documented as of this encounter Progress Notes * sAmita Davies M.D. - 06/25/2014 9:08 AM CDT Eye General CHIEF COMPLAINT Pigmented choroidal nevus right eye HISTORY OF PRESENT ILLNESS Patient here for Pigmented choroidal nevus right eye follow up. She is having trouble standing in one place for any length of time since starting Trusopt. Denies any changes since last seen. IMPRESSION / REPORT / PLAN #1 Pigmented [...] early nasal changes, LE central scatter with 3/14 FL. Essentially stable both eyes. IOP too high today but has been out of her Azopt. 09/12/2013: Restart drops. RTC 6 months [address] IOP check. Dr. Gomez 03/2014: Switched to dorzolamide (Trusopt) by Dr. Davies due to high cost of Azopt, TID regime due to increase in IOP 02/25 Radha 24-2 08/26 RE shows early nasal changes, LE central scatter with 3/14 FL. Essentially stable both eyes. Continue current drops, RTC 4 months with OCT and Radha IMAGING 25 Jun 2014 US Right Eye : [...] medium to low reflectivity, no extrascleral extension. PLAN 06/27 Previously recommend cataract surgery in right eye [...] with ultrasound at this time. Her IOP OD is again too high again today, despite Trusopt TID She saw Dr. Gomez in March 2014 for glaucoma follow up; IOP was too high at that time as well. She is due to see Dr. Gomez again next month, will make sure she gets the appt scheduled. I doubt the Trusopt eye drop is responsible for her symptoms of weakness while standing. Advised her to try punctal occlusion and/or stop for a few days to see if fatigue improves. She should also let her primary care physician know about this symptom. Follow up with WMS in 4-6 months to monitor nevus in right eye with ultrasound. DIAGNOSIS #1 Pigmented choroidal nevus right eye #2 retinal hole, left eye #3 Epiretinal membrane, right eye #4 Sub-foveal fluid, right eye #5 Hx vascular decompensation post pole, right eye #6 Cataracts, both worse right eye than left eye #7 Early mild low tension glaucoma CDM Reports - EYEGEN Id: [id number] Status: Fnl documented in this encounter Plan of Treatment Upcoming Encounters Date Type Department Care Team (Latest Contact Info) Description 09/20/2024 3:00 PM DRAPERY SEWER HAND Infusion Department of Infusion Therapy in [address] [place] [address] Amisha Hughes, AZAEL, C.N.P. [address] [place] [phone] 09/27/2024 9:15 AM DRAPERY SEWER HAND Ancillary Procedure Department of Ophthalmology in [place], [place] [address] [place] [phone] Asmita Davies M.D. [address] [place] [phone] 09/27/2024 9:45 AM DRAPERY SEWER HAND Ancillary Procedure Department of Ophthalmology in [place], [place] [address] [place] [phone] Asmita Davies M.D. [address] [place] [phone] 09/27/2024 10:00 AM DRAPERY SEWER HAND Office Visit Department of Ophthalmology in [place], [place] [address] [place] [phone] Asmita Davies M.D. [address] [place] [phone] 09/27/2024 1:00 PM DRAPERY SEWER HAND Office Visit [facility] in [place], [place] [address] [place] [address] Oh Mckeon APRN, C.N.P., M.S.N. [address] [place] [phone] 10/18/2024 1:00 PM DRAPERY SEWER HAND Comprehensive Visit Department of Obstetrics and Gynecology in [place], [place] [address] [place] [address] Teresa Espitia APRN, C.N.P., D.N.P. [address] [place] [phone] documented as of this encounter Visit Diagnoses Not on filedocumented in this encounter Additional Health Concerns Infection Onset Date Last Indicated Resolved Time COVID19 Pending 10/06/2020 10/06/2020 10/06/2020 6 :04 PM DRAPERY SEWER HAND documented as of this encounter Care Teams Lockstitch Lining Setter Relationship Specialty Start Date End Date Elsewhere, Pcp PCP - General Internal Medicine 08/31/22 documented as of this encounter
--- OUTSIDE RECORDS SUMMARY | 2024-09-10 16:20 | XMS_ITS | Encounter Summary ---
Author Organization [facility] Address [address] [place] [address] Care Team Providers Care Used Car Salesperson Name Role Phone Elsewhere, Pcp Primary Care Provider Unavailabl e Encounter Details Date Type Department Care Team (Late st Contact Info) Description 05/29/2015 Historical Ophthalmology RST OPH Erin Gomez O.D. [address] [place] [address] Social History Tobacco Use Types Packs/Day Years Used Date Smoking Tobacco: Never Assessed Comments Unknown Sex and Gender Information Value Date Recorded Sex Assigned at Female 03/24/2018 4:51 PM CDT Legal Sex Female 6:23 AM TOBACCO CLOTH RECLAIMER Gender Identity Female 03/24/2018 4:51 PM CDT Sexual Orientation Straight 03/24/2018 4: 51 PM CDT documented as of this encounter Progress Notes * Erin Gomez O.D. - 05/29/2015 12:41 PM CDT Eye General CHIEF COMPLAINT Dorzolamide [...] suspicious for thinning temporally. LE wnl. SS 6/. RNFL 70/76. Both eyes stable. 05/28 GMS: Continue current drops dorzolamide [TRUSOPT] 2 % drops 1 drop ophthalmic three times a day-right eye., RTC 6 months with OCT IMAGING 29 May 2015 US right eye: [...] tension glaucoma CDM Reports - EYEGEN Id: [id number] Status: Fnl documented in this encounter Plan of Treatment Upcoming Encounters Date Type Department Care Team (Latest Contact Info) Description 09/20/2024 3:00 PM TOBACCO CLOTH RECLAIMER Infusion Department of Infusion Therapy in [place], [place] [address] [place] [address] [place] [address] Amisha Hughes, AZAEL, C.N.P. [address] [place] [phone] 09/27/2024 9:15 AM TOBACCO CLOTH RECLAIMER Ancillary Procedure Department of Ophthalmology in [place], [place] [address] [place] [phone] Asmita Davies M.D. [address] [place] [phone] 09/27/2024 9:45 AM TOBACCO CLOTH RECLAIMER Ancillary Procedure Department of Ophthalmology in [place], [place] [address] [place] [address] Asmita Davies M.D. [address] [place] [phone] 09/27/2024 10:00 AM TOBACCO CLOTH RECLAIMER Office Visit Department of Ophthalmology in [place], [place] [address] [place] [phone] Asmita Davies M.D. [address] [place] [phone] 09/27/2024 1:00 PM TOBACCO CLOTH RECLAIMER Office Visit [facility] in [place], [place] [address] [place] [phone] Oh Mckeon APRN, C.N.P., M.S.N. [address] [place] [phone] 10/18/2024 1:00 PM TOBACCO CLOTH RECLAIMER Comprehensive Visit Department of Obstetrics and Gynecology in [place], [place] [address] [place] [address] Teresa Espitia APRN, C.N.P., D.N.P. [address] [place] [phone] documented as of this encounter Visit Diagnoses Not on filedocumented in this encounter Additional Health Concerns Infection Onset Date Last Indicated Resolved Time COVID19 Pending 10/06/2020 10/06/2020 10/06/2020 6 :04 PM TOBACCO CLOTH RECLAIMER documented as of this encounter Care Teams Used Car Salesperson Relationship Specialty Start Date End Date Elsewhere, Pcp PCP - General Internal Medicine 08/31/22 documented as of this encounter
--- OUTSIDE RECORDS SUMMARY | 2024-09-10 16:20 | XMS_ITS | Encounter Summary ---
Author Organization [facility] Address [address] [place] [address] Care Team Providers Care Driver Lifter Of Sanitation Truck Name Role Phone Elsewhere, Pcp Primary Care Provider Unavailabl e Encounter Details Date Type Department Care Team (Late st Contact Info) Description 01/05/2016 Historical Ophthalmology RST OPH Asmita Davies M.D. [address] [place] [address] Social History Tobacco Use Types Packs/Day Years Used Date Smoking Tobacco: Never Assessed Comments Unknown Sex and Gender Information Value Date Recorded Sex Assigned at Female 03/24/2018 4:51 PM CDT Legal Sex Female 6:23 AM DEMOLITION WORKER Gender Identity Female 03/24/2018 4:51 PM CDT Sexual Orientation Straight 03/24/2018 4: 51 PM CDT documented as of this encounter Progress Notes * Asmita Davies M.D. - 01/05/2016 11:06 AM CST Eye General CHIEF COMPLAINT annual exam HISTORY OF PRESENT ILLNESS Here for annual exam. Feels viison has reduced a bit. Denies flashes and floaters. Poor night driving ability; both eyes ; started 4-6 months. WMS: Having trouble with driving at night. IMPRESSION / REPORT / PLAN #1 Pigmented [...] mutation per outside diagnosis 12/2015 Started Xarelto IMAGING 05 Jan 2016 US right eye: nevus [...] low reflectivity, no extrascleral extension. LS PLAN 12/30 Previously recommended cataract surgery in right eye since we cannot adequately visualize the largenevus anymore. Surgery would be more complicated since the cataract is very mature, might even need extracap procedure. She was previously very worried about the risks of surgery and preferred to monitor the nevus with ultrasound. Today, she is beginning to have problems with night driving likely due to cataract progression in her left eye (the better seeing eye). She is now interested in considering surgery in both eyes. Dr. Solorzano has kindly agreed to evaluate her for surgery. I will defer to his judgment regarding which eye to do first (or whether to do both eyes.) Briefly discussed that it is difficult to predict how much improvement she will have in the right eye; however, it will be beneficial to remove the cataract so we can better monitor the large choroidal nevus. If she does have surgery in the right eye, I would like to see her about a month after surgery to repeat the ocular US and update the color photos. Otherwise, if she does not have surgery in the right eye, I will monitor the nevus in 6 months withultrasound. 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, left eye #3 Epiretinal membrane, right eye #4 History of sub-foveal fluid, right eye #5 Hx vascular decompensation post pole, right eye #6 Cataracts, right eye >> left eye #7 Early mild low tension glaucoma #8 History of DVT and Factor V Leiden mutation per outside diagnosis CDM Reports - EYEGEN Id: [id number] Status: Fnl documented in this encounter Plan of Treatment Upcoming Encounters Date Type Department Care Team (Latest Contact Info) Description 09/20/2024 3:00 PM DEMOLITION WORKER Infusion Department of Infusion Therapy in [place], [place] [address] [facility] [address] Amisha Hughes APRN, C.N.P. [address] [place] [address] 09/27/2024 9:15 AM DEMOLITION WORKER Ancillary Procedure Department of Ophthalmology in [place], [place] [address] [place] [phone] Asmita Davies M.D. [address] [place] [phone] 09/27/2024 9:45 AM DEMOLITION WORKER Ancillary Procedure Department of Ophthalmology in [place], [place] [address] [place] [phone] Asmita Davies M.D. [address] [place] [phone] 09/27/2024 10:00 AM DEMOLITION WORKER Office Visit Department of Ophthalmology in [place], [place] [address] [place] [phone] Asmita Davies M.D. [address] [place] [phone] 09/27/2024 1:00 PM DEMOLITION WORKER Office Visit [facility] in [place], [place] [address] [place] [phone] Oh Mckeon APRN, C.N.P., M.S.N. [address] [place] [phone] 10/18/2024 1:00 PM DEMOLITION WORKER Comprehensive Visit Department of Obstetrics and Gynecology in [address] [phone] Teresa Espitia APRN, C.N.P., D.N.P. [address] [place] [phone] documented as of this encounter Visit Diagnoses Not on filedocumented in this encounter Additional Health Concerns Infection Onset Date Last Indicated Resolved Time COVID19 Pending 10/06/2020 10/06/2020 10/06/2020 6 :04 PM DEMOLITION WORKER documented as of this encounter Care Teams Driver Lifter Of Sanitation Truck Relationship Specialty Start Date End Date Elsewhere, Pcp PCP - General Internal Medicine 08/31/22 documented as of this encounter
--- OUTSIDE RECORDS SUMMARY | 2024-09-10 16:20 | XMS_ITS | Encounter Summary ---
Author Organization [facility] Address [address] [place] [address] Care Team Providers Care Financial Aids Officer Name Role Phone Elsewhere, Pcp Primary Care Provider Unavailabl e Encounter Details Date Type Department Care Team (Late st Contact Info) Description 02/11/2012 Historical Ophthalmology RST OPH Debbie Owens M.D. [address] [place] [address] Social History Tobacco Use Types Packs/Day Years Used Date Smoking Tobacco: Never Assessed Comments Unknown Sex and Gender Information Value Date Recorded Sex Assigned at Female 03/24/2018 4:51 PM CDT Legal Sex Female 6:23 AM ASSEMBLER CARDS AND ANNOUNCEMENTS Gender Identity Female 03/24/2018 4:51 PM CDT Sexual Orientation Straight 03/24/2018 4: 51 PM CDT documented as of this encounter Progress Notes * Debbie Owens M.D. - 02/11/2012 7:13 AM CDT Eye General CHIEF COMPLAINT Follow [...] new eye concerns. CK: f/u LTG. Tmax . No gtts currently for glaucoma. +hx choroidal nevus right. + hx PPVX for macular hole right, +erm right. Notes glare and blur right>left. +distortion right IMPRESSION / REPORT / PLAN 11 Feb 2012 right eye: nevus 2.1 - 2.2 x 12.2 x 10.5mm @ 3 PE, low reflectivity, no extrascleralextension. LS #1 Early mild low tension glaucoma +progression of optic nerve cupping and oct right eye (avf right remains stable) iop, disc and avf left stable Tmax 17/15 goal iop right 11 start azopt bid right (I am avoiding prostaglandin right given new pigment in angle right and hx choroidal nevus) no gtts left f/u 2 months clk #2 Visually significant cataracts both eyes CE right prn, discussed. +ozul #3 Pigmented choroidal nevus right eye f/u Dr. Tobar today ubm today right given new area of hyperpigmentation 5:00 right #4 retinal hole, left eye stable #5 Epiretinal membrane, right eye s/p Grid Photocoagulation s/p erm stripping with bubble/positioning for secondary macular hole 05/21.improvement of vision DIAGNOSIS #1 Early mild low tension glaucoma #2 Visually significant cataracts both eyes #3 Pigmented choroidal nevus right eye #4 retinal hole, left eye #5 Epiretinal membrane, right eye CDM Reports - EYEGEN Id: [id number] Status: Fnl documented in this encounter Plan of Treatment Upcoming Encounters Date Type Department Care Team (Latest Contact Info) Description 09/20/2024 3:00 PM ASSEMBLER CARDS AND ANNOUNCEMENTS Infusion Department of Infusion Therapy in [place], [place] [address] [facility] [place] [address] Amisha Hughes APRN, C.N.P. [address] [place] [phone] 09/27/2024 9:15 AM ASSEMBLER CARDS AND ANNOUNCEMENTS Ancillary Procedure Department of Ophthalmology in [place], [place] [address] [place] [phone] Asmita Davies M.D. [address] [place] [phone] 09/27/2024 9:45 AM ASSEMBLER CARDS AND ANNOUNCEMENTS Ancillary Procedure Department of Ophthalmology in [place], [place] [address] [place] [address] Asmita Davies M.D. [address] [place] [phone] 09/27/2024 10:00 AM ASSEMBLER CARDS AND ANNOUNCEMENTS Office Visit Department of Ophthalmology in [place], [place] [address] [place] [address] Asmita Davies M.D. [address] [place] [phone] 09/27/2024 1:00 PM ASSEMBLER CARDS AND ANNOUNCEMENTS Office Visit [facility] in [place], [place] [address] [place] [phone] Oh Mckeon, AZAEL, C.N.P., M.S.N. [address] [place] [phone] 10/18/2024 1:00 PM ASSEMBLER CARDS AND ANNOUNCEMENTS Comprehensive Visit Department of Obstetrics and Gynecology in [place], [place] [address] [place] [phone] Teresa Espitia APRN, C.N.P., D.N.P. [address] [place] [phone] documented as of this encounter Visit Diagnoses Not on filedocumented in this encounter Additional Health Concerns Infection Onset Date Last Indicated Resolved Time COVID19 Pending 10/06/2020 10/06/2020 10/06/2020 6 :04 PM ASSEMBLER CARDS AND ANNOUNCEMENTS documented as of this encounter Care Teams Financial Aids Officer Relationship Specialty Start Date End Date Elsewhere, Pcp PCP - General Internal Medicine 08/31/22 documented as of this encounter
--- OUTSIDE RECORDS SUMMARY | 2024-09-10 16:20 | XMS_ITS | Encounter Summary ---
Author Organization [facility] Address [address] [place] [address] Care Team Providers Care Reverberatory Furnace Supervisor Name Role Phone Elsewhere, Pcp Primary Care Provider Unavailabl e Encounter Details Date Type Department Care Team (Late st Contact Info) Description 07/28/2016 Historical Ophthalmology RST OPH Mike Solorzano M.D. [address] [place] [address] Social History Tobacco Use Types Packs/Day Years Used Date Smoking Tobacco: Never Assessed Comments Unknown Sex and Gender Information Value Date Recorded Sex Assigned at Female 03/24/2018 4:51 PM CDT Legal Sex Female 6:23 AM DEPUTY FIRE CHIEF Gender Identity Female 03/24/2018 4:51 PM CDT Sexual Orientation Straight 03/24/2018 4: 51 PM CDT documented as of this encounter Progress Notes * Mike Solorzano M.D. - 07/28/2016 8:49 AM CDT Eye General CHIEF COMPLAINT post op Right Extracapsular Cataract extraction with intraocular lens implant HISTORY OF PRESENT ILLNESS Patient denies ocular pain. NA: no recent vision changes. no pain or discomfort. IMPRESSION / REPORT / PLAN #1 s/p ECCE/IOL, right eye. Doing well, BCVA better, still with cyl @060-075 Cut 1 more suture @075 to reduce astigmatism Will asked tech to check Ks and refraction on Oct 27 BEFORE sees WMS; review data with me in COS endless track vehicle supervisor clinic to determine if needs further suture cutting. #2 Pigmented choroidal nevus right eye Getting tests today for WMS #3 s/p macular hole repair, right eye s/p PPV/MP #4 Hx vascular decompensation post pole, right eye per CAM/DMR #5 Low tension glaucoma, right eye CCT: 558/559; Tmax 17/15 Continue drops and care with glaucoma team. DIAGNOSIS #1 s/p ECCE/IOL, right eye. 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 [address] [place] [phone] 09/27/2024 9:15 AM DEPUTY FIRE CHIEF Ancillary Procedure Department of Ophthalmology in [place], [place] [address] [place] [phone] Asmita Davies M.D. [address] [place] [phone] 09/27/2024 9:45 AM DEPUTY FIRE CHIEF Ancillary Procedure Department of Ophthalmology in [place], [place] [address] [place] [phone] Asmita Davies M.D. [address] [place] [phone] 09/27/2024 10:00 AM DEPUTY FIRE CHIEF Office Visit Department of Ophthalmology in [place], [place] [address] [place] [phone] Asmita Davies M.D. [address] [place] [phone] 09/27/2024 1:00 PM DEPUTY FIRE CHIEF Office Visit [facility] in [place], [place] [address] [place] [phone] Oh Mckeon APRN, C.N.P., M.S.N. [address] [place] [phone] 10/18/2024 1:00 PM DEPUTY FIRE CHIEF Comprehensive Visit Department of Obstetrics and Gynecology in [place], [place] [address] [place] [phone] Teresa Espitia APRN, C.N.P., D.N.P. [address] [place] [phone] documented as of this encounter Visit Diagnoses Not on filedocumented in this encounter Additional Health Concerns Infection Onset Date Last Indicated Resolved Time COVID19 Pending 10/06/2020 10/06/2020 10/06/2020 6 :04 PM DEPUTY FIRE CHIEF documented as of this encounter Care Teams Reverberatory Furnace Supervisor Relationship Specialty Start Date End Date Elsewhere, Pcp PCP - General Internal Medicine 08/31/22 documented as of this encounter
--- OUTSIDE RECORDS SUMMARY | 2024-09-10 16:20 | XMS_ITS | Encounter Summary ---
Author Organization [facility] Address [address] [place] [address] Care Team Providers Care Medicaid Service Coordinator Name Role Phone Elsewhere, Pcp Primary Care Provider Unavailabl e Encounter Details Date Type Department Care Team (Late st Contact Info) Description 03/03/2016 Historical Ophthalmology RST OPH Nora Jerry Social History Tobacco Use Types Packs/Day Years Used Date Smoking Tobacco: Never Assessed Comments Unknown Sex and Gender Information Value Date Recorded Sex Assigned at Female 03/24/2018 4:51 PM CDT Legal Sex Female 6:23 AM MEDICAL INSURANCE CLERK Gender Identity Female 03/24/2018 4:51 PM CDT Sexual Orientation Straight 03/24/2018 4: 51 PM CDT documented as of this encounter Progress Notes * Nora Jerry - 03/03/2016 10:10 AM CDT Eye Subsequent Visit HISTORY OF PRESENT ILLNESS Instructions given to patient and daughter for ECCE cataract surgery, right eye Gonda 7E 04/14/2016 FABRICATOR SPECIAL ITEMS Phone: work: [phone] cell: [phone] CDM Reports - EYESV Id: [id number] Status: Fnl documented in this encounter Plan of Treatment Upcoming Encounters Date Type Department Care Team (Latest Contact Info) Description 09/20/2024 3:00 PM MEDICAL INSURANCE CLERK Infusion Department of Infusion Therapy in [place], [place] [address] [facility] [place] [address] Amisha Hughes, AZAEL, C.N.P. [address] [place] [phone] 09/27/2024 9:15 AM MEDICAL INSURANCE CLERK Ancillary Procedure Department of Ophthalmology in [place], [place] [address] [place] [phone] Asmita Davies M.D. [address] [place] [phone] 09/27/2024 9:45 AM MEDICAL INSURANCE CLERK Ancillary Procedure Department of Ophthalmology in [place], [place] [address] [place] [phone] Asmita Davies M.D. [address] [place] [phone] 09/27/2024 10:00 AM MEDICAL INSURANCE CLERK Office Visit Department of Ophthalmology in [place], [place] [address] [place] [phone] Asmita Davies M.D. [address] [place] [phone] 09/27/2024 1:00 PM MEDICAL INSURANCE CLERK Office Visit [facility] in [address] [phone] Oh Mckeon APRN, C.N.P., M.S.N. [address] [place] [phone] 10/18/2024 1:00 PM MEDICAL INSURANCE CLERK Comprehensive Visit Department of Obstetrics and Gynecology in [address] [phone] Teresa Espitia APRN, C.N.P., D.N.P. [address] [place] [phone] documented as of this encounter Visit Diagnoses Not on filedocumented in this encounter Additional Health Concerns Infection Onset Date Last Indicated Resolved Time COVID19 Pending 10/06/2020 10/06/2020 10/06/2020 6 :04 PM MEDICAL INSURANCE CLERK documented as of this encounter Care Teams Medicaid Service Coordinator Relationship Specialty Start Date End Date Elsewhere, Pcp PCP - General Internal Medicine 08/31/22 documented as of this encounter
--- OUTSIDE RECORDS SUMMARY | 2024-09-10 16:20 | XMS_ITS | Encounter Summary ---
Author Organization [facility] Address [address] [place] [address] Care Team Providers Care Coverage Specialist Name Role Phone Elsewhere, Pcp Primary Care Provider Unavailabl e Encounter Details Date Type Department Care Team (Late st Contact Info) Description 09/09/2010 Historical Ophthalmology RST OPH Debbie Owens M.D. [address] [place] [address] Social History Tobacco Use Types Packs/Day Years Used Date Smoking Tobacco: Never Assessed Comments Unknown Sex and Gender Information Value Date Recorded Sex Assigned at Female 03/24/2018 4:51 PM CDT Legal Sex Female 6:23 AM AWNING INSTALLER Gender Identity Female 03/24/2018 4:51 PM CDT Sexual Orientation Straight 03/24/2018 4: 51 PM CDT documented as of this encounter Progress Notes * Debbie Owens M.D. - 09/09/2010 8:14 AM CDT Eye General HISTORY OF PRESENT ILLNESS Patient returns to go over test results/pressure checks from yesterday. Patient denies any new concerns since yesterday. Patient denies ocular pain. Denies flashes of lights, no floaters and no diplopia. 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 - minimal change since photos Sep 1998 by vascular landmarks 01/20 also TI shows barely to ora at 3; #4 retinal hole, left eye stable #5 Epiretinal membrane, right eye s/p Grid Photocoagulation s/p erm stripping with bubble/positioning for secondary macular hole 05/21.improvement of vision #6 Sub-foveal fluid, right eye DIAGNOSIS #1 Early mild low tension glaucoma #2 Visually significant cataracts both eyes #3 Pigmented choroidal nevus right eye #4 retinal hole, left eye #5 Epiretinal membrane, right eye #6 Sub-foveal fluid, right eye CDM Reports - EYEGEN Id: [id number] Status: Fnl documented in this encounter Plan of Treatment Upcoming Encounters Date Type Department Care Team (Latest Contact Info) Description 09/20/2024 3:00 PM AWNING INSTALLER Infusion Department of Infusion Therapy in [place], [place] [address] [place] [address] [place] [address] Amisha Hughes, CERTIFIED MEETING PROFESSIONAL, C.N.P. [address] [place] [phone] 09/27/2024 9:15 AM AWNING INSTALLER Ancillary Procedure Department of Ophthalmology in [place], [place] [address] [place] [phone] Asmita Davies M.D. [address] [place] [phone] 09/27/2024 9:45 AM AWNING INSTALLER Ancillary Procedure Department of Ophthalmology in [place], [place] [address] [place] [phone] Asmita Davies M.D. [address] [place] [phone] 09/27/2024 10:00 AM AWNING INSTALLER Office Visit Department of Ophthalmology in [place], [place] [address] [place] [phone] Asmita Davies M.D. [address] [place] [phone] 09/27/2024 1:00 PM AWNING INSTALLER Office Visit [facility] in [place], [place] [address] [place] [phone] Oh Mckeon APRN, C.N.P., M.S.N. [address] [place] [phone] 10/18/2024 1:00 PM AWNING INSTALLER Comprehensive Visit Department of Obstetrics and Gynecology in [place], [place] [address] [place] [phone] Teresa Espitia APRN, C.N.P., D.N.P. [address] [place] [phone] documented as of this encounter Visit Diagnoses Not on filedocumented in this encounter Additional Health Concerns Infection Onset Date Last Indicated Resolved Time COVID19 Pending 10/06/2020 10/06/2020 10/06/2020 6 :04 PM AWNING INSTALLER documented as of this encounter Care Teams Coverage Specialist Relationship Specialty Start Date End Date Elsewhere, Pcp PCP - General Internal Medicine 08/31/22 documented as of this encounter
--- OUTSIDE RECORDS SUMMARY | 2024-09-10 16:20 | XMS_ITS | Encounter Summary ---
Author Organization [facility] Address [address] [place] [address] Care Team Providers Care Flanging Roll Operator Name Role Phone Elsewhere, Pcp Primary Care Provider Unavailabl e Encounter Details Date Type Department Care Team (Late st Contact Info) Description 09/12/2013 Historical Ophthalmology RST OPH Erin Gomez O.D. [address] [place] [address] Social History Tobacco Use Types Packs/Day Years Used Date Smoking Tobacco: Never Assessed Comments Unknown Sex and Gender Information Value Date Recorded Sex Assigned at Female 03/24/2018 4:51 PM CDT Legal Sex Female 6:23 AM EVALUATION ADVISOR Gender Identity Female 03/24/2018 4:51 PM CDT Sexual Orientation Straight 03/24/2018 4: 51 PM CDT documented as of this encounter Progress Notes * Erin Gomez O.D. - 09/12/2013 12:32 PM CDT Eye General CHIEF COMPLAINT follow up low tension glaucoma HISTORY OF PRESENT ILLNESS Patient reports stable vision; both eyes. She ran out of her Azopt 3-4 weeks ago and was unable toget it refilled. GMS: renewed meds for pt. Dr. Davies did update her Rx in June but her pharmacy stated that they did not get the new Rx. No new concerns today. IMPRESSION / REPORT / PLAN 27 Jun 2013 US Right Eye : [...] to review in 6 months from her 06/27/13 visit #2 retinal hole, left eye stable [...] bid, continue no drops in the left Radha 24-2 08/26 RE shows early nasal changes, LE central scatter with 3/14 FL. Essentailly stable both eyes. IOP too high today but has been out of her Azopt. 09/12/2013: Restart drops. RTC 6 months with IOP check. PLAN 06/27/[address] Davies: Previously recommend cataract surgery in right eye [...] tension glaucoma CDM Reports - EYEGEN Id: [id number] Status: Fnl documented in this encounter Plan of Treatment Upcoming Encounters Date Type Department Care Team (Latest Contact Info) Description 09/20/2024 3:00 PM EVALUATION ADVISOR Infusion Department of Infusion Therapy in [place], [place] [address] [address] Amisha Hughes, AVIATION MAINTENANCE TECHNICIAN, C.N.P. [address] [place] [phone] 09/27/2024 9:15 AM EVALUATION ADVISOR Ancillary Procedure Department of Ophthalmology in [place], [place] [address] [place] [phone] Asmita Davies M.D. [address] [place] [phone] 09/27/2024 9:45 AM EVALUATION ADVISOR Ancillary Procedure Department of Ophthalmology in [place], [place] [address] [place] [phone] Asmita Davies M.D. [address] [place] [phone] 09/27/2024 10:00 AM EVALUATION ADVISOR Office Visit Department of Ophthalmology in [place], [place] [address] [place] [phone] Asmita Davies M.D. [address] [place] [phone] 09/27/2024 1:00 PM EVALUATION ADVISOR Office Visit [facility] in [place], [place] [address] [place] [phone] Oh Mckeon APRN, C.N.P., M.S.N. [address] [place] [phone] 10/18/2024 1:00 PM EVALUATION ADVISOR Comprehensive Visit Department of Obstetrics and Gynecology in [place], [place] [address] [place] [phone] Teresa Espitia APRN, C.N.P., D.N.P. [address] [place] [phone] documented as of this encounter Visit Diagnoses Not on filedocumented in this encounter Additional Health Concerns Infection Onset Date Last Indicated Resolved Time COVID19 Pending 10/06/2020 10/06/2020 10/06/2020 6 :04 PM EVALUATION ADVISOR documented as of this encounter Care Teams Flanging Roll Operator Relationship Specialty Start Date End Date Elsewhere, Pcp PCP - General Internal Medicine 08/31/22 documented as of this encounter
--- OUTSIDE RECORDS SUMMARY | 2024-09-10 16:20 | XMS_ITS | Encounter Summary ---
Author Organization [facility] Address [address] [place] [address] Care Team Providers Care Wrecking Mechanic Name Role Phone Elsewhere, Pcp Primary Care Provider Unavailabl e Encounter Details Date Type Department Care Team (Late st Contact Info) Description 01/06/2016 Historical Ophthalmology RST OPH Aime Savage O.D. [address] [place] [address] Social History Tobacco Use Types Packs/Day Years Used Date Smoking Tobacco: Never Assessed Comments Unknown Sex and Gender Information Value Date Recorded Sex Assigned at Female 03/24/2018 4:51 PM CDT Legal Sex Female 6:23 AM COSMETIC MAKER Gender Identity Female 03/24/2018 4:51 PM CDT Sexual Orientation Straight 03/24/2018 4: 51 PM CDT documented as of this encounter Progress Notes * Aime Savage O.D. - 01/06/2016 8:32 AM CST Eye General CHIEF COMPLAINT Follow up early mild low tension glaucoma HISTORY OF PRESENT ILLNESS This is a 80 year old female here today for a follow up early mild low tension glaucoma. Blurred vision; both eyes; x 4 months; constantly; gradually worsening. Denies ocular pain, floaters, flashes of light, and diplopia. IMPRESSION / REPORT / PLAN #1 Low tension glaucoma, right eye CCT: 558/559; Tmax 17/15 Goal IOP right eye 11 OCT RNFL 12/30: right thinner vs left, poor signal both eyes due to cataract DIANNA 05/28: right - general depression (cataract), non specific scatter; left - non specific scatter IOP above goal right eye Continue dorzolamide TID right eye only Recheck IOP in 3 months, CE may reduce IOP to goal If IOP remains above goal, will change to Cosopt #2 Cataract, both eyes (right > left), visually significant. Patient is seeing Dr. Solorzano in 2 weeks for surgical consult. 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 Davies DIAGNOSIS #1 Low tension glaucoma, right eye #2 Cataract, both eyes (right > left), visually significant. #3 Pigmented choroidal nevus right eye #4 Operculated retinal hole, left eye #5 Epiretinal membrane, right eye #6 History of sub-foveal fluid, right eye #7 Hx vascular decompensation post pole, right eye CDM Reports - EYEGEN Id: [id number] Status: Fnl documented in this encounter Plan of Treatment Upcoming Encounters Date Type Department Care Team (Latest Contact Info) Description 09/20/2024 3:00 PM COSMETIC MAKER Infusion Department of Infusion Therapy in [address] [place] [address] Amisha Hughes APRN, C.N.P. [address] [place] [address] 09/27/2024 9:15 AM COSMETIC MAKER Ancillary Procedure Department of Ophthalmology in [place], [place] [address] [place] [phone] Asmita Davies M.D. [address] [place] [phone] 09/27/2024 9:45 AM COSMETIC MAKER Ancillary Procedure Department of Ophthalmology in [place], [place] [address] [place] [phone] Asmita Davies M.D. [address] [place] [phone] 09/27/2024 10:00 AM COSMETIC MAKER Office Visit Department of Ophthalmology in [place], [place] [address] [place] [phone] Asmita Davies M.D. [address] [place] [phone] 09/27/2024 1:00 PM COSMETIC MAKER Office Visit [facility] in [place], [place] [address] [place] [phone] Oh Mckeon APRN, C.N.P., M.S.N. [address] [place] [phone] 10/18/2024 1:00 PM COSMETIC MAKER Comprehensive Visit Department of Obstetrics and Gynecology in [place], [place] [address] [place] [phone] Teresa Espitia APRN, C.N.P., D.N.P. [address] [place] [phone] documented as of this encounter Visit Diagnoses Not on filedocumented in this encounter Additional Health Concerns Infection Onset Date Last Indicated Resolved Time COVID19 Pending 10/06/2020 10/06/2020 10/06/2020 6 :04 PM COSMETIC MAKER documented as of this encounter Care Teams Wrecking Mechanic Relationship Specialty Start Date End Date Elsewhere, Pcp PCP - General Internal Medicine 08/31/22 documented as of this encounter
--- OUTSIDE RECORDS SUMMARY | 2024-09-10 16:20 | XMS_ITS | Encounter Summary ---
Author Organization [facility] Address [address] [place] [address] Care Team Providers Care Surgical Garment Assembly Supervisor Name Role Phone Elsewhere, Pcp Primary Care Provider Unavailabl e Encounter Details Date Type Department Care Team (Late st Contact Info) Description 06/15/2016 Historical Ophthalmology RST OPH Mike Solorzano M.D. [address] [place] [address] Social History Tobacco Use Types Packs/Day Years Used Date Smoking Tobacco: Never Assessed Comments Unknown Sex and Gender Information Value Date Recorded Sex Assigned at Female 03/24/2018 4:51 PM CDT Legal Sex Female 6:23 AM SUPERVISOR RIDES Gender Identity Female 03/24/2018 4:51 PM CDT Sexual Orientation Straight 03/24/2018 4: 51 PM CDT documented as of this encounter Progress Notes * Mike Solorzano M.D. - 06/15/2016 12:57 PM CDT Eye General CHIEF COMPLAINT S/p Right Extracapsular Cataract extraction with intraocular lens implant HISTORY OF PRESENT ILLNESS Copied vision informaition from Dr. Savage's CDM from earlier today. IMPRESSION / REPORT / PLAN #1 s/p ECCE/IOL, right eye. Doing well, BCVA better, some cyl @060 Cut 1 more suture @060 to reduce astigmatism Will recheck with re-refraction in 1 month #2 Pigmented choroidal nevus right eye Getting tests today for WMS #3 s/p macular hole repair, right eye s/p PPV/MP #4 Hx vascular decompensation post pole, right eye per CAM/DMR #5 Low tension glaucoma, right eye CCT: 558/559; Tmax 17/15 Continue drops and care with glaucoma team. The following tests have been completed and need interpretation. OCT macula, OCT nerve, FluoresceinAngiogram, Autofluorescence ADDENDUM - S HVF 24-2: low reliability OU due to [...] circulation. the left eye is essentially unremarkable. S plan: Will reasses with multifocal ERG and repeat Spectralis OCT in about two months. BCVA might be limited by retinal pathology. DIAGNOSIS #1 s/p ECCE/IOL, right eye. #2 Pigmented choroidal nevus right eye #3 s/p macular hole repair, right eye #4 Hx vascular decompensation post pole, right eye #5 Low tension glaucoma, right eye CDM Reports - EYEGEN Id: [id number] Status: Fnl documented in this encounter Plan of Treatment Upcoming Encounters Date Type Department Care Team (Latest Contact Info) Description 09/20/2024 3:00 PM SUPERVISOR RIDES Infusion Department of Infusion Therapy in [address] [place], [place] [phone] Amisha Hughes APRN, C.N.P. [address] [place] [phone] 09/27/2024 9:15 AM SUPERVISOR RIDES Ancillary Procedure Department of Ophthalmology in [place], [place] [address] [place] [phone] Asmita Davies M.D. [address] [place] [phone] 09/27/2024 9:45 AM SUPERVISOR RIDES Ancillary Procedure Department of Ophthalmology in [place], [place] [address] [place] [phone] Asmita Davies M.D. [address] [place] [phone] 09/27/2024 10:00 AM SUPERVISOR RIDES Office Visit Department of Ophthalmology in [address] [phone] Asmita Davies M.D. [address] [place] [phone] 09/27/2024 1:00 PM SUPERVISOR RIDES Office Visit [facility] in [address] [phone] Oh Mckeon APRN, C.N.P., M.S.N. [address] [place] [phone] 10/18/2024 1:00 PM SUPERVISOR RIDES Comprehensive Visit Department of Obstetrics and Gynecology in [address] [phone] Teresa Espitia APRN, C.N.P., D.N.P. [address] [place] [phone] documented as of this encounter Visit Diagnoses Not on filedocumented in this encounter Additional Health Concerns Infection Onset Date Last Indicated Resolved Time COVID19 Pending 10/06/2020 10/06/2020 10/06/2020 6 :04 PM SUPERVISOR RIDES documented as of this encounter Care Teams Surgical Garment Assembly Supervisor Relationship Specialty Start Date End Date Elsewhere, Pcp PCP - General Internal Medicine 08/31/22 documented as of this encounter
--- OUTSIDE RECORDS SUMMARY | 2024-09-10 16:20 | XMS_ITS | Encounter Summary ---
Author Organization [facility] Address [address] [place] [address] Care Team Providers Care Line Walker Name Role Phone Elsewhere, Pcp Primary Care Provider Unavailabl e Encounter Details Date Type Department Care Team (Late st Contact Info) Description 11/27/2014 Historical Ophthalmology RST OPH Erin Gomez O.D. [address] [place] [address] Social History Tobacco Use Types Packs/Day Years Used Date Smoking Tobacco: Never Assessed Comments Unknown Sex and Gender Information Value Date Recorded Sex Assigned at Female 03/24/2018 4:51 PM CDT Legal Sex Female 6:23 AM BOLT CUTTER Gender Identity Female 03/24/2018 4:51 PM CDT Sexual Orientation Straight 03/24/2018 4: 51 PM CDT documented as of this encounter Progress Notes * Erin Gomez O.D. - 11/27/2014 12:00 PM CST Eye General CHIEF COMPLAINT Follow up Early mild low tension glaucoma HISTORY OF PRESENT ILLNESS The patient is a 79 year old female here for a follow up regarding Early mild low tension glaucoma.The patient notes that vision is stable since last visit. Denies flashes of light, floaters, and ocular pain. No new concerns today. IMPRESSION / REPORT / PLAN 27 Nov 2014 right eye: nevus 2.0 - 2.1 x 10.2 x 10.5mm @ 2:00 - 3:00 PE, low to medium reflectivity, no extrascleral extension. LS #1 Pigmented choroidal nevus right eye #2 retinal hole, left eye #3 Epiretinal membrane, right eye #4 Sub-foveal fluid, right eye #5 Hx vascular decompensation post pole, right eye #6 Cataracts, both, worse right eye than left eye 11/27/14: Seeing Dr. Asmita Davies today--refer to appropriate CDM #7 Early mild low tension glaucoma +progression [...] current drops, RTC 5-6 months with Radha DIAGNOSIS #1 Pigmented choroidal nevus right eye #2 retinal hole, left eye #3 Epiretinal membrane, right eye #4 Sub-foveal fluid, right eye #5 Hx vascular decompensation post pole, right eye #6 Cataracts, both, worse right eye than left eye #7 Early mild low tension glaucoma CDM Reports - EYEGEN Id: [id number] Status: Fnl documented in this encounter Plan of Treatment Upcoming Encounters Date Type Department Care Team (Latest Contact Info) Description 09/20/2024 3:00 PM BOLT CUTTER Infusion Department of Infusion Therapy in [place], [place] [address] [facility] [place] [address] Amisha Hughes, PULL TAB DEALER, C.N.P. [address] [place] [address] 09/27/2024 9:15 AM BOLT CUTTER Ancillary Procedure Department of Ophthalmology in [place], [place] [address] [place] [address] Asmita Davies M.D. [address] [place] [phone] 09/27/2024 9:45 AM BOLT CUTTER Ancillary Procedure Department of Ophthalmology in [place], [place] [address] [place] [phone] Amsita Davies M.D. [address] [place] [phone] 09/27/2024 10:00 AM BOLT CUTTER Office Visit Department of Ophthalmology in [place], [place] [address] [place] [phone] Asmita Davies M.D. [address] [place] [phone] 09/27/2024 1:00 PM BOLT CUTTER Office Visit [facility] in [place], [place] [address] [place] [phone] Oh Mckeon, AZAEL, C.N.P., M.S.N. [address] [place] [phone] 10/18/2024 1:00 PM BOLT CUTTER Comprehensive Visit Department of Obstetrics and Gynecology in [address] [phone] Teresa Espitia APRN, C.N.P., D.N.P. [address] [place] [phone] documented as of this encounter Visit Diagnoses Not on filedocumented in this encounter Additional Health Concerns Infection Onset Date Last Indicated Resolved Time COVID19 Pending 10/06/2020 10/06/2020 10/06/2020 6 :04 PM BOLT CUTTER documented as of this encounter Care Teams Line Walker Relationship Specialty Start Date End Date Elsewhere, Pcp PCP - General Internal Medicine 08/31/22 documented as of this encounter
--- OUTSIDE RECORDS SUMMARY | 2024-09-10 16:20 | XMS_ITS | Encounter Summary ---
Author Organization [facility] Address [address] [place] [address] Care Team Providers Care Cigarette Vendor Name Role Phone Elsewhere, Pcp Primary Care Provider Unavailabl e Encounter Details Date Type Department Care Team (Late st Contact Info) Description 06/15/2016 Historical Ophthalmology RST OPH Aime Savage O.D. [address] [place] [address] Social History Tobacco Use Types Packs/Day Years Used Date Smoking Tobacco: Never Assessed Comments Unknown Sex and Gender Information Value Date Recorded Sex Assigned at Female 03/24/2018 4:51 PM CDT Legal Sex Female 6:23 AM INDUSTRIAL MILLWRIGHT Gender Identity Female 03/24/2018 4:51 PM CDT Sexual Orientation Straight 03/24/2018 4: 51 PM CDT documented as of this encounter Progress Notes * Aime Savage O.D. - 06/15/2016 7:41 AM CDT Eye General CHIEF COMPLAINT follow up Low tension glaucoma, right eye. Blurred vision HISTORY OF PRESENT ILLNESS 81 year old female reports a slight vision decline; right eye; gradual change since last exam. Denies ocular pain, floaters, flashes of light, and diplopia. patient forgot her drops today at home ; she last used them last night . IMPRESSION / REPORT / PLAN #1 Low tension glaucoma, right eye CCT: 558/559; Tmax 17/15 Goal IOP right eye 11 OCT RNFL 2/16: right thinner vs left, poor signal both eyes due to cataract DIANNA 06/29: right - inf scatter vs early arc; left - non specific scatter IOP acceptable Continue dorzolamide TID right eye only Recheck with DIANNA , OCT RNFL, and updated disc photos in 6 months #2 Psuedophakia, right eye Patient is seeing Dr. Solorzano later today #3Cataract, left eye, stable. Monitor periodically. 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 [address] [place] [address] 09/27/2024 9:15 AM INDUSTRIAL MILLWRIGHT Ancillary Procedure Department of Ophthalmology in [place], [place] [address] [place] [phone] Asmita Davies M.D. [address] [place] [phone] 09/27/2024 9:45 AM INDUSTRIAL MILLWRIGHT Ancillary Procedure Department of Ophthalmology in [place], [place] [address] [place] [phone] Asmita Davies M.D. [address] [place] [phone] 09/27/2024 10:00 AM INDUSTRIAL MILLWRIGHT Office Visit Department of Ophthalmology in [place], [place] [address] [place] [phone] Asmita Davies M.D. [address] [place] [phone] 09/27/2024 1:00 PM INDUSTRIAL MILLWRIGHT Office Visit [facility] in [place], [place] [address] [place] [phone] Oh Mckeon APRN, C.N.P., M.S.N. [address] [place] [phone] 10/18/2024 1:00 PM INDUSTRIAL MILLWRIGHT Comprehensive Visit Department of Obstetrics and Gynecology in [place], [place] [address] [place] [phone] Teresa Espitia APRN, C.N.P., D.N.P. [address] [place] [phone] documented as of this encounter Visit Diagnoses Not on filedocumented in this encounter Additional Health Concerns Infection Onset Date Last Indicated Resolved Time COVID19 Pending 10/06/2020 10/06/2020 10/06/2020 6 :04 PM INDUSTRIAL MILLWRIGHT documented as of this encounter Care Teams Cigarette Vendor Relationship Specialty Start Date End Date Elsewhere, Pcp PCP - General Internal Medicine 08/31/22 documented as of this encounter
--- OUTSIDE RECORDS SUMMARY | 2024-09-10 16:20 | XMS_ITS | Encounter Summary ---
Author Organization [facility] Address [address] [place] [address] Care Team Providers Care It Service Continuity Supervisor Name Role Phone Elsewhere, Pcp Primary Care Provider Unavailabl e Encounter Details Date Type Department Care Team (Late st Contact Info) Description 11/27/2014 Historical Ophthalmology RST OPH Asmita Davies M.D. [address] [place] [address] Social History Tobacco Use Types Packs/Day Years Used Date Smoking Tobacco: Never Assessed Comments Unknown Sex and Gender Information Value Date Recorded Sex Assigned at Female 03/24/2018 4:51 PM CDT Legal Sex Female 6:23 AM SUPPORT SERVICES REP Gender Identity Female 03/24/2018 4:51 PM CDT Sexual Orientation Straight 03/24/2018 4: 51 PM CDT documented as of this encounter Progress Notes * Asmita Davies M.D. - 11/27/2014 3:28 PM CST Eye General CHIEF COMPLAINT Follow up Early mild low tension glaucoma HISTORY OF PRESENT ILLNESS The patient is a 79 year old female here for a follow up regarding Early mild low tension glaucoma.The patient notes that vision is stable since last visit. Denies flashes of light, floaters, and ocular pain. No new concerns today. Copied from Dr. Patricia ABEBE from earlier today. IMPRESSION / REPORT / PLAN #1 Pigmented [...] suspicious for thinning temporally. LE wnl. SS /. RNFL 70/76. Both eyes stable. Continue current drops, RTC 5-6 months with Radha IMAGING 27 Nov 2014 US right eye: nevus [...] low reflectivity, no extrascleral extension. LS PLAN 11/28 Previously recommended cataract surgery in right eye since we cannot adequately visualize the largenevus anymore. Surgery would be a little more complicated since the cataract is more mature, might even need extracap procedure. She is very worried about the risks of surgery and prefers to monitor with ultrasound, although I told her I cannot recommend this choice. We will continue to monitor closely with ultrasound at this time. Follow up with WMS in 5-6 months to monitor nevus in right eye with ultrasound. coordinate with glaucoma appt on same day. DIAGNOSIS #1 Pigmented choroidal nevus right eye #2 retinal hole, left eye #3 Epiretinal membrane, right eye #4 Sub-foveal fluid, right eye #5 Hx vascular decompensation post pole, right eye #6 Cataracts, both worse right eye than left eye #7 Early mild low tension glaucoma CDM Reports - EYEGEN Id: [id number] Status: Fnl documented in this encounter Plan of Treatment Upcoming Encounters Date Type Department Care Team (Latest Contact Info) Description 09/20/2024 3:00 PM SUPPORT SERVICES REP Infusion Department of Infusion Therapy in [place], [place] [address] [place] [address] [place] [address] Amisha Hughes APRN, C.N.P. [address] [place] [phone] 09/27/2024 9:15 AM SUPPORT SERVICES REP Ancillary Procedure Department of Ophthalmology in [place], [place] [address] [place] [phone] Asmita Davies M.D. [address] [place] [phone] 09/27/2024 9:45 AM SUPPORT SERVICES REP Ancillary Procedure Department of Ophthalmology in [place], [place] [address] [place] [phone] Asmita Davies M.D. [address] [place] [phone] 09/27/2024 10:00 AM SUPPORT SERVICES REP Office Visit Department of Ophthalmology in [place], [place] [address] [place] [phone] Asmita Davies M.D. [address] [place] [phone] 09/27/2024 1:00 PM SUPPORT SERVICES REP Office Visit [facility] in [place], [place] [address] [place] [address] Oh Mckeon APRN, C.N.P., M.S.N. [address] [place] [phone] 10/18/2024 1:00 PM SUPPORT SERVICES REP Comprehensive Visit Department of Obstetrics and Gynecology in [place], [place] [address] [place] [phone] Teresa Espitia APRN, Hugo.N.P., D.N.P. [address] [place] [phone] documented as of this encounter Visit Diagnoses Not on filedocumented in this encounter Additional Health Concerns Infection Onset Date Last Indicated Resolved Time COVID19 Pending 10/06/2020 10/06/2020 10/06/2020 6 :04 PM SUPPORT SERVICES REP documented as of this encounter Care Teams It Service Continuity Supervisor Relationship Specialty Start Date End Date Elsewhere, Pcp PCP - General Internal Medicine 08/31/22 documented as of this encounter
--- OUTSIDE RECORDS SUMMARY | 2024-09-10 16:21 | XMS_ITS | Encounter Summary ---
Author Organization [facility] Address [address] [place] [address] Care Team Providers Care Respiratory Care Faculty Name Role Phone Elsewhere, Pcp Primary Care Provider Unavailabl e Encounter Details Date Type Department Care Team (Late st Contact Info) Description 03/19/2009 Historical Ophthalmology RST OPH Domingo Tobar M.D. Social History Tobacco Use Types Packs/Day Years Used Date Smoking Tobacco: Never Assessed Comments Unknown Sex and Gender Information Value Date Recorded Sex Assigned at Female 03/24/2018 4:51 PM CDT Legal Sex Female 6:23 AM PHYSICAL METEOROLOGIST Gender Identity Female 03/24/2018 4:51 PM CDT Sexual Orientation Straight 03/24/2018 4: 51 PM CDT documented as of this encounter Progress Notes * Domingo Tobar M.D. - 03/19/2009 12:01 PM CDT Eye General CHIEF COMPLAINT floaters, right eye HISTORY OF PRESENT ILLNESS Patient returns for follow up Choroidal nevus. Patient notes no vision changes, besides floaters inher right eye. Patient denies flashes and eye pain. The patient describes floaters in right eye for the past 2 months, which comes and goes, mild. IMPRESSION / REPORT / PLAN 03/19/09 US RE: 2.1 x 11.9 x 9.4 @ 2:30 PE includes shallow subretinal fluid, 1.8mm from choroid; lowto medium reflectivity, no extrascleral extension. LS 02/06/09 US RE: Nevus: 2.1 x 11.3 x 8.7mm @ 2:30 PE, includes probable very shallow subretinal fluid, medium to low reflectivity, no extrascleral extension. LS 10/15/08 US RE: nevus: 2.0 - 2.1 x 11.6 x 8.5mm @ 2:30 PE, low to medium reflective, no extrascleralextension. LS A & B-SCAN RE from 01/2008: nevus measured 1.9 - 2.0mm thickness x 9 x 7.8mm @ 2:30 PE, overlying subretinal fluid, medium to low reflectivity, no extrascleral extension. 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 05/21 10/21: FA:Right: no leakage; staining of the [...] shows persistent subretinal fluid under the macula Plan 03/19/2009 rtc 6 mo with oct #5 Hx vascular decompensation post pole, right eye per CAM/DMR #6 Cataracts, both GINA shows no improvement in right eye DIAGNOSIS #1 Pigmented choroidal nevus right eye #2 retinal hole, left eye #3 Epiretinal membrane, right eye with subretinal fluid #4 Sub-foveal fluid, right eye #5 Hx vascular decompensation post pole, right eye #6 Cataracts, both CDM Reports - EYEGEN Id: [id number] Status: Fnl documented in this encounter Plan of Treatment Upcoming Encounters Date Type Department Care Team (Latest Contact Info) Description 09/20/2024 3:00 PM PHYSICAL METEOROLOGIST Infusion Department of Infusion Therapy in [place], [place] [address] [place] [address] Amisha Hughes APRN, C.N.P. [address] [place] [phone] 09/27/2024 9:15 AM PHYSICAL METEOROLOGIST Ancillary Procedure Department of Ophthalmology in [place], [place] [address] [place] [phone] Asmita Davies M.D. [address] [place] [phone] 09/27/2024 9:45 AM PHYSICAL METEOROLOGIST Ancillary Procedure Department of Ophthalmology in [place], [place] [address] [place] [phone] Asmita Davies M.D. [address] [place] [phone] 09/27/2024 10:00 AM PHYSICAL METEOROLOGIST Office Visit Department of Ophthalmology in [place], [place] [address] [place] [phone] Asmita Davies M.D. [address] [place] [phone] 09/27/2024 1:00 PM PHYSICAL METEOROLOGIST Office Visit [facility] in [place], [place] [address] [place] [phone] Oh Mckeon APRN, C.N.P., M.S.N. [address] [place] [phone] 10/18/2024 1:00 PM PHYSICAL METEOROLOGIST Comprehensive Visit Department of Obstetrics and Gynecology in [place], [place] [address] [place] [phone] Teresa Espitia APRN, C.N.P., D.N.P. [address] [place] [phone] documented as of this encounter Visit Diagnoses Not on filedocumented in this encounter Additional Health Concerns Infection Onset Date Last Indicated Resolved Time COVID19 Pending 10/06/2020 10/06/2020 10/06/2020 6 :04 PM PHYSICAL METEOROLOGIST documented as of this encounter Care Teams Respiratory Care Faculty Relationship Specialty Start Date End Date Elsewhere, Pcp PCP - General Internal Medicine 08/31/22 documented as of this encounter
--- OUTSIDE RECORDS SUMMARY | 2024-09-10 16:21 | XMS_ITS | Encounter Summary ---
Author Organization [facility] Address [address] [place] [address] Care Team Providers Care Rodent Exterminator Name Role Phone Elsewhere, Pcp Primary Care Provider Unavailabl e Encounter Details Date Type Department Care Team (Late st Contact Info) Description 04/20/2007 Historical Ophthalmology RST OPH Luis Carlos Horton M.D. Social History Tobacco Use Types Packs/Day Years Used Date Smoking Tobacco: Never Assessed Comments Unknown Sex and Gender Information Value Date Recorded Sex Assigned at Female 03/24/2018 4:51 PM CDT Legal Sex Female 6:23 AM FINE ARTS PACKER Gender Identity Female 03/24/2018 4:51 PM CDT Sexual Orientation Straight 03/24/2018 4: 51 PM CDT documented as of this encounter Progress Notes * Luis Carlos Horton M.D. - 04/20/2007 9:42 AM CDT Eye General CHIEF COMPLAINT nevus, right eye HISTORY OF PRESENT ILLNESS Patient notes right eye is decreased with distance vision, since last visit. Will have glasses follow up in [place]. Denies eye pain, new floaters, flashes, and diplopia. 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 - minimal change since photos Sep 1998 U/S shows max thickess of 2.4mm ; 1998 showed one reading of 2.4 and profile does not seem different( #2 retinal hole OS discussed and flashes and floater book given Patient education: Ready to learn, no apparent learning barriers were identified; learning preferences include listening. Explained diagnosis and treatment plan; patient expressed understanding of the content. #3 eepiretinal membrane OD #4 vascular decompensation post pole OD rec FA with ICG and Flourrescein andf review; discussed; laser pc indicated ; done DIAGNOSIS #1 Pigmented choroidal nevus right eye #2 retinal hole OS #3 eepiretinal membrane OD #4 vascular decompensation post pole OD CDM Reports - EYEGEN Id: [id number] Status: Fnl documented in this encounter Plan of Treatment Upcoming Encounters Date Type Department Care Team (Latest Contact Info) Description 09/20/2024 3:00 PM FINE ARTS PACKER Infusion Department of Infusion Therapy in [place], [place] [address] [address] Amisha Hughes, SENIOR CORPORATE ACCOUNTANT, C.N.P. [address] [place] [phone] 09/27/2024 9:15 AM FINE ARTS PACKER Ancillary Procedure Department of Ophthalmology in [place], [place] [address] [place] [phone] Amsita Davies M.D. [address] [place] [phone] 09/27/2024 9:45 AM FINE ARTS PACKER Ancillary Procedure Department of Ophthalmology in [place], [place] [address] [place] [address] Asmita Davies M.D. [address] [place] [phone] 09/27/2024 10:00 AM FINE ARTS PACKER Office Visit Department of Ophthalmology in [place], [place] [address] [place] [phone] Asmita Davies M.D. [address] [place] [phone] 09/27/2024 1:00 PM FINE ARTS PACKER Office Visit [facility] in [place], [place] [address] [place] [phone] Oh Mckeon APRN, C.N.P., M.S.N. [address] [place] [phone] 10/18/2024 1:00 PM FINE ARTS PACKER Comprehensive Visit Department of Obstetrics and Gynecology in [place], [place] [address] [place] [phone] Teresa Espitia APRN, C.N.P., D.N.P. [address] [place] [phone] documented as of this encounter Visit Diagnoses Not on filedocumented in this encounter Additional Health Concerns Infection Onset Date Last Indicated Resolved Time COVID19 Pending 10/06/2020 10/06/2020 10/06/2020 6 :04 PM FINE ARTS PACKER documented as of this encounter Care Teams Rodent Exterminator Relationship Specialty Start Date End Date Elsewhere, Pcp PCP - General Internal Medicine 08/31/22 documented as of this encounter
--- OUTSIDE RECORDS SUMMARY | 2024-09-10 16:21 | XMS_ITS | Encounter Summary ---
Author Organization [facility] Address [address] [place] [address] Care Team Providers Care Iron Caster Name Role Phone Elsewhere, Pcp Primary Care Provider Unavailabl e Encounter Details Date Type Department Care Team (Late st Contact Info) Description 02/10/2004 Historical Ophthalmology RST OPH Luis Carlos Horton M.D. Social History Tobacco Use Types Packs/Day Years Used Date Smoking Tobacco: Never Assessed Comments Unknown Sex and Gender Information Value Date Recorded Sex Assigned at Female 03/24/2018 4:51 PM CDT Legal Sex Female 6:23 AM BLOOD COLLECTOR Gender Identity Female 03/24/2018 4:51 PM CDT Sexual Orientation Straight 03/24/2018 4: 51 PM CDT documented as of this encounter Progress Notes * Luis Carlos Horton M.D. - 02/10/2004 12:00 AM CST Eye General CHIEF COMPLAINT Nevus recheck. HISTORY OF PRESENT ILLNESS Pt. here for nevus recheck. Dneies complaints. Vision stable. IMPRESSION / REPORT / PLAN #1 stable pigment ed choroidal nevus OD rec check 9 months; U/S shows max thickess of 2.42 mm DIAGNOSIS #1 stable pigment ed choroidal nevus OD CDM Reports - EYEGEN Id: [id number] Status: Fnl documented in this encounter Plan of Treatment Upcoming Encounters Date Type Department Care Team (Latest Contact Info) Description 09/20/2024 3:00 PM BLOOD COLLECTOR Infusion Department of Infusion Therapy in [place], [place] [address] [place] [address] Amisha Hughes APRN, C.N.P. [address] [place] [phone] 09/27/2024 9:15 AM BLOOD COLLECTOR Ancillary Procedure Department of Ophthalmology in [place], [place] [address] [place] [phone] Asmita Davies M.D. [address] [place] [phone] 09/27/2024 9:45 AM BLOOD COLLECTOR Ancillary Procedure Department of Ophthalmology in [place], [place] [address] [place] [phone] Asmita Davies M.D. [address] [place] [phone] 09/27/2024 10:00 AM BLOOD COLLECTOR Office Visit Department of Ophthalmology in [place], [place] [address] [place] [phone] Asmita Davies M.D. [address] [place] [phone] 09/27/2024 1:00 PM BLOOD COLLECTOR Office Visit [facility] in [place], [place] [address] [place] [phone] Oh Mckeon APRN, C.N.P., M.S.N. [address] [place] [phone] 10/18/2024 1:00 PM BLOOD COLLECTOR Comprehensive Visit Department of Obstetrics and Gynecology in [place], [place] [address] [place] [phone] Teresa Espitia APRN, C.N.P., D.N.P. [address] [place] [phone] documented as of this encounter Visit Diagnoses Not on filedocumented in this encounter Additional Health Concerns Infection Onset Date Last Indicated Resolved Time COVID19 Pending 10/06/2020 10/06/2020 10/06/2020 6 :04 PM BLOOD COLLECTOR documented as of this encounter Care Teams Iron Caster Relationship Specialty Start Date End Date Elsewhere, Pcp PCP - General Internal Medicine 08/31/22 documented as of this encounter
--- OUTSIDE RECORDS SUMMARY | 2024-09-10 16:21 | XMS_ITS | Encounter Summary ---
Author Organization [facility] Address [address] [place] [address] Care Team Providers Care Inspector Pawnshop Detail Name Role Phone Elsewhere, Pcp Primary Care Provider Unavailabl e Encounter Details Date Type Department Care Team (Late st Contact Info) Description 06/15/2007 Historical Ophthalmology RST OPH Luis Carlos Horton M.D. Social History Tobacco Use Types Packs/Day Years Used Date Smoking Tobacco: Never Assessed Comments Unknown Sex and Gender Information Value Date Recorded Sex Assigned at Female 03/24/2018 4:51 PM CDT Legal Sex Female 6:23 AM ANNUAL GIVING DIRECTOR Gender Identity Female 03/24/2018 4:51 PM CDT Sexual Orientation Straight 03/24/2018 4: 51 PM CDT documented as of this encounter Progress Notes * Luis Carlos Horton M.D. - 06/15/2007 11:04 AM CDT Eye Postoperative MULTI-VISIT DOCUMENT This document contains multiple patient visits and is available for review in Document Viewer. CDM Reports - EYEPO Id: [id number] Status: Fnl documented in this encounter Plan of Treatment Upcoming Encounters Date Type Department Care Team (Latest Contact Info) Description 09/20/2024 3:00 PM ANNUAL GIVING DIRECTOR Infusion Department of Infusion Therapy in [place], [place] [address] [place] [address] Amisha Hughes, ORACLE EBS DEVELOPER, C.N.P. [address] [place] [address] 09/27/2024 9:15 AM ANNUAL GIVING DIRECTOR Ancillary Procedure Department of Ophthalmology in [place], [place] [address] [place] [phone] Asmita Davies M.D. [address] [place] [phone] 09/27/2024 9:45 AM ANNUAL GIVING DIRECTOR Ancillary Procedure Department of Ophthalmology in [place], [place] [address] [place] [phone] Asmita Davies M.D. [address] [place] [phone] 09/27/2024 10:00 AM ANNUAL GIVING DIRECTOR Office Visit Department of Ophthalmology in [address] [phone] Asmita Davies M.D. [address] [place] [phone] 09/27/2024 1:00 PM ANNUAL GIVING DIRECTOR Office Visit [facility] in [address] [phone] Oh Mckeon APRN, C.N.P., M.S.N. [address] [place] [phone] 10/18/2024 1:00 PM ANNUAL GIVING DIRECTOR Comprehensive Visit Department of Obstetrics and Gynecology in [address] [phone] Teresa Espitia APRN, C.N.P., D.N.P. [address] [place] [phone] documented as of this encounter Visit Diagnoses Not on filedocumented in this encounter Additional Health Concerns Infection Onset Date Last Indicated Resolved Time COVID19 Pending 10/06/2020 10/06/2020 10/06/2020 6 :04 PM ANNUAL GIVING DIRECTOR documented as of this encounter Care Teams Inspector Pawnshop Detail Relationship Specialty Start Date End Date Elsewhere, Pcp PCP - General Internal Medicine 08/31/22 documented as of this encounter
--- OUTSIDE RECORDS SUMMARY | 2024-09-10 16:21 | XMS_ITS | Clinical Summary ---
Author Organization [facility] Address [place], [place] [facility] Care Team Providers Care Warehouse Order Selector Name Role Phone Eliseo Aldrich MD Primary Care Provider Joanne vailable Social History Tobacco Use Types Packs/Day Years Used Date Smoking Tobacco: Never Assessed Sex and Gender Information Value Date Recorded Sex Assigned at Not on file Gender Identity Not on file Sexual Orientation Not on file Plan of Treatment Health Maintenance Due Date Last Done Comments Tdap 1948 Depression screening for age 12+ 1949 BMI (ht and wt on same day) for age 18+ 1955 Tetanus booster 1957 Zoster (shingles) series for age 50+ (1 of 2) 01/10/19 87 DEXA/DXA scan for age 65+ 2002 Pneumococcal series for age 65+ (1 of 1 - PCV) 002 RSV vaccine for adults or pr egnancy (1 - 1-dose 75+ series) 2012 COVID-19 vaccine series (2023- season) 4 Influenza for age 65+ 07/15/2024 Care Teams Warehouse Order Selector Relationship Specialty Start Date End Date Eliseo Aldrich MD PCP - General Family Practice 07/09/14
--- OUTSIDE RECORDS SUMMARY | 2024-09-10 16:21 | XMS_ITS | Encounter Summary ---
Author Organization [facility] Address [address] [place] [address] Care Team Providers Care Stock Analyst Name Role Phone Elsewhere, Pcp Primary Care Provider Unavailabl e Encounter Details Date Type Department Care Team (Late st Contact Info) Description 08/13/2008 Historical Ophthalmology RST OPH William Villareal M.D. [address] [place] [phone] Social History Tobacco Use Types Packs/Day Years Used Date Smoking Tobacco: Never Assessed Comments Unknown Sex and Gender Information Value Date Recorded Sex Assigned at Female 03/24/2018 4:51 PM CDT Legal Sex Female 6:23 AM CISSP Gender Identity Female 03/24/2018 4:51 PM CDT Sexual Orientation Straight 03/24/2018 4: 51 PM CDT documented as of this encounter Progress Notes * William Villareal M.D. - 08/13/2008 11:19 AM CDT Eye Postoperative MULTI-VISIT DOCUMENT This document contains multiple patient visits and is available for review in Document Viewer. CDM Reports - EYEPO Id: [id number] Status: Fnl documented in this encounter Plan of Treatment Upcoming Encounters Date Type Department Care Team (Latest Contact Info) Description 09/20/2024 3:00 PM CISSP Infusion Department of Infusion Therapy in [place], [place] [address] [place] [address] Amisha Hughes APRN, C.N.P. [address] [place] [phone] 09/27/2024 9:15 AM CISSP Ancillary Procedure Department of Ophthalmology in [place], [place] [address] [place] [phone] Asmita Davies M.D. [address] [place] [phone] 09/27/2024 9:45 AM CISSP Ancillary Procedure Department of Ophthalmology in [place], [place] [address] [place] [phone] Asmita Davies M.D. [address] [place] [phone] 09/27/2024 10:00 AM CISSP Office Visit Department of Ophthalmology in [place], [place] [address] [place] [phone] Asmita Davies M.D. [address] [place] [phone] 09/27/2024 1:00 PM CISSP Office Visit [facility] in [address] [phone] Oh Mckeon APRN, C.N.P., M.S.N. [address] [place] [phone] 10/18/2024 1:00 PM CISSP Comprehensive Visit Department of Obstetrics and Gynecology in [address] [phone] Teresa Espitia APRN, C.N.P., D.N.P. [address] [place] [phone] documented as of this encounter Visit Diagnoses Not on filedocumented in this encounter Additional Health Concerns Infection Onset Date Last Indicated Resolved Time COVID19 Pending 10/06/2020 10/06/2020 10/06/2020 6 :04 PM CISSP documented as of this encounter Care Teams Stock Analyst Relationship Specialty Start Date End Date Elsewhere, Pcp PCP - General Internal Medicine 08/31/22 documented as of this encounter
--- OUTSIDE RECORDS SUMMARY | 2024-09-10 16:21 | XMS_ITS | Encounter Summary ---
Author Organization [facility] Address [address] [place] [address] Care Team Providers Care Space Controller Name Role Phone Elsewhere, Pcp Primary Care Provider Unavailabl e Encounter Details Date Type Department Care Team (Late st Contact Info) Description 11/25/2009 Historical Ophthalmology RST OPH Morteza Adams M.D. Social History Tobacco Use Types Packs/Day Years Used Date Smoking Tobacco: Never Assessed Comments Unknown Sex and Gender Information Value Date Recorded Sex Assigned at Female 03/24/2018 4:51 PM CDT Legal Sex Female 6:23 AM SEASONING SPRAYER Gender Identity Female 03/24/2018 4:51 PM CDT Sexual Orientation Straight 03/24/2018 4: 51 PM CDT documented as of this encounter Progress Notes * Morteza Adams M.D. - 11/25/2009 9:17 AM CST Eye General CHIEF COMPLAINT Cataract evaluation HISTORY OF PRESENT ILLNESS Patient describes continued blurred vision right eye following macular hole last year, constant.. Denies ocular discomfort either eye. No floaters or flashing lights either eye. Bothered by halos around lights when night driving. 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 Discussedrisks, goals, alternatives, advance directives, and the necessity of other members of the healthcare team participating in the procedure with the patient (or legal commercial representative and others present during the discussion). The patient understands. All questions answered and consent given. 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 [address] [place] [phone] 09/27/2024 9:15 AM SEASONING SPRAYER Ancillary Procedure Department of Ophthalmology in [place], [place] [address] [place] [phone] Asmita Davies M.D. [address] [place] [phone] 09/27/2024 9:45 AM SEASONING SPRAYER Ancillary Procedure Department of Ophthalmology in [place], [place] [address] [place] [phone] Asmita Davies M.D. [address] [place] [phone] 09/27/2024 10:00 AM SEASONING SPRAYER Office Visit Department of Ophthalmology in [place], [place] [address] [place] [phone] Asmita Davies M.D. [address] [place] [phone] 09/27/2024 1:00 PM SEASONING SPRAYER Office Visit [facility] in [place], [place] [address] [place] [phone] Oh Mckeon APRN, C.N.P., M.S.N. [address] [place] [phone] 10/18/2024 1:00 PM SEASONING SPRAYER Comprehensive Visit Department of Obstetrics and Gynecology in [place], [place] [address] [place] [address] Teresa Espitia APRN, C.N.P., D.N.P. [address] [place] [phone] documented as of this encounter Visit Diagnoses Not on filedocumented in this encounter Additional Health Concerns Infection Onset Date Last Indicated Resolved Time COVID19 Pending 10/06/2020 10/06/2020 10/06/2020 6 :04 PM SEASONING SPRAYER documented as of this encounter Care Teams Space Controller Relationship Specialty Start Date End Date Elsewhere, Pcp PCP - General Internal Medicine 08/31/22 documented as of this encounter
--- OUTSIDE RECORDS SUMMARY | 2024-09-10 16:21 | XMS_ITS | Encounter Summary ---
Author Organization [facility] Address [address] [place] [address] Care Team Providers Care Quality Assurance Group Leader Name Role Phone Elsewhere, Pcp Primary Care Provider Unavailabl e Encounter Details Date Type Department Care Team (Late st Contact Info) Description 10/10/2009 Historical Ophthalmology RST OPH Domingo Tobar M.D. Social History Tobacco Use Types Packs/Day Years Used Date Smoking Tobacco: Never Assessed Comments Unknown Sex and Gender Information Value Date Recorded Sex Assigned at Female 03/24/2018 4:51 PM CDT Legal Sex Female 6:23 AM FIELD INSTRUCTOR Gender Identity Female 03/24/2018 4:51 PM CDT Sexual Orientation Straight 03/24/2018 4: 51 PM CDT documented as of this encounter Progress Notes * Domingo Tobar M.D. 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 Notes slight decreased vision, left eye, x 3 months, constant, mild, and more noticeable at night when driving. Concerned about her cataracts. Denies floaters, flashes and diplopia. Patient denies ocular pain. IMPRESSION / REPORT / PLAN 09/22; US RE 2.1-2.2mm no extrascleral extension; [...] ora at 3; 09/22; continue to follow 03/22OCT:Right eye: subretinal fluid, retinal thickening, no hole (stable from previous OCT 01/20) oct; 09/22 less subretinal fluid right eye in the fovea; none left eye; GINA shows improvement so consider cataract surgery here; and rtc to see me in 7mos with Oct and US in 7mos #2 retinal hole, left eye stable #3 [...] shows persistent subretinal fluid under the macula #5 Hx vascular decompensation post pole, right eye per CAM/DMR #6 Cataracts, both worse right eye than left eye GINA shows no improvement in right eye DIAGNOSIS #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 [address] [place] [phone] 09/27/2024 9:15 AM FIELD INSTRUCTOR Ancillary Procedure Department of Ophthalmology in [place], [place] [address] [place] [phone] Asmita Davies M.D. [address] [place] [phone] 09/27/2024 9:45 AM FIELD INSTRUCTOR Ancillary Procedure Department of Ophthalmology in [place], [place] [address] [place] [phone] Asmita Davies M.D. [address] [place] [phone] 09/27/2024 10:00 AM FIELD INSTRUCTOR Office Visit Department of Ophthalmology in [place], [place] [address] [place] [phone] Asmita Davies M.D. [address] [place] [phone] 09/27/2024 1:00 PM FIELD INSTRUCTOR Office Visit [facility] in [place], [place] [address] [place] [phone] Oh Mckeon APRN, C.N.P., M.S.N. [address] [place] [phone] 10/18/2024 1:00 PM FIELD INSTRUCTOR Comprehensive Visit Department of Obstetrics and Gynecology in [place], [place] [address] [place] [address] Teresa Espitia APRN, C.N.P., D.N.P. [address] [place] [phone] documented as of this encounter Visit Diagnoses Not on filedocumented in this encounter Additional Health Concerns Infection Onset Date Last Indicated Resolved Time COVID19 Pending 10/06/2020 10/06/2020 10/06/2020 6 :04 PM FIELD INSTRUCTOR documented as of this encounter Care Teams Quality Assurance Group Leader Relationship Specialty Start Date End Date Elsewhere, Pcp PCP - General Internal Medicine 08/31/22 documented as of this encounter
--- OUTSIDE RECORDS SUMMARY | 2024-09-10 16:21 | XMS_ITS | Encounter Summary ---
Author Organization [facility] Address [address] [place] [address] Care Team Providers Care Yard Driver Name Role Phone Elsewhere, Pcp Primary Care Provider Unavailabl e Encounter Details Date Type Department Care Team (Late st Contact Info) Description 09/22/2005 Historical Ophthalmology RST OPH Domingo Tobar M.D. Social History Tobacco Use Types Packs/Day Years Used Date Smoking Tobacco: Never Assessed Comments Unknown Sex and Gender Information Value Date Recorded Sex Assigned at Female 03/24/2018 4:51 PM CDT Legal Sex Female 6:23 AM MEDICAL SCIENTIFIC LIAISON Gender Identity Female 03/24/2018 4:51 PM CDT Sexual Orientation Straight 03/24/2018 4: 51 PM CDT documented as of this encounter Progress Notes * Domingo Tobar M.D. - 09/22/2005 12:00 AM CST Eye General CHIEF COMPLAINT Nevus review HISTORY OF PRESENT ILLNESS no new problems 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 - minimal change since photos Sep 1998 U/S shows max thickess of 1.9mm with overlying SRF over it (about the same as before) #2 retinal hole OS discussed and flashes and floater book given Patient education: Ready to learn, no apparent learning barriers were identified; learning preferences include listening. Explained diagnosis and treatment plan; patient expressed understanding of the content. DIAGNOSIS #1 Pigmented choroidal nevus right eye #2 retinal hole OS CDM Reports - EYEGEN Id: [id number] Status: Fnl documented in this encounter Plan of Treatment Upcoming Encounters Date Type Department Care Team (Latest Contact Info) Description 09/20/2024 3:00 PM MEDICAL SCIENTIFIC LIAISON Infusion Department of Infusion Therapy in [place], [place] [address] [place] [address] Amisha Hughes APRN, C.N.P. [address] [place] [phone] 09/27/2024 9:15 AM MEDICAL SCIENTIFIC LIAISON Ancillary Procedure Department of Ophthalmology in [place], [place] [address] [place] [phone] Asmita Davies M.D. [address] [place] [phone] 09/27/2024 9:45 AM MEDICAL SCIENTIFIC LIAISON Ancillary Procedure Department of Ophthalmology in [place], [place] [address] [place] [phone] Asmita Davies M.D. [address] [place] [phone] 09/27/2024 10:00 AM MEDICAL SCIENTIFIC LIAISON Office Visit Department of Ophthalmology in [place], [place] [address] [place] [phone] Asmita Davies M.D. [address] [place] [phone] 09/27/2024 1:00 PM MEDICAL SCIENTIFIC LIAISON Office Visit [facility] in [place], [place] [address] [place] [phone] Oh Mckeon, AZAEL, C.N.P., M.S.N. [address] [place] [phone] 10/18/2024 1:00 PM MEDICAL SCIENTIFIC LIAISON Comprehensive Visit Department of Obstetrics and Gynecology in [place], [place] [address] [place] [phone] Teresa Espitia, AZAEL, C.N.P., D.N.P. [address] [place] [phone] documented as of this encounter Visit Diagnoses Not on filedocumented in this encounter Additional Health Concerns Infection Onset Date Last Indicated Resolved Time COVID19 Pending 10/06/2020 10/06/2020 10/06/2020 6 :04 PM MEDICAL SCIENTIFIC LIAISON documented as of this encounter Care Teams Yard Driver Relationship Specialty Start Date End Date Elsewhere, Pcp PCP - General Internal Medicine 08/31/22 documented as of this encounter
--- OUTSIDE RECORDS SUMMARY | 2024-09-10 16:21 | XMS_ITS | Encounter Summary ---
Author Organization [facility] Address [address] [place] [address] Care Team Providers Care Mobile Electronics Installer Name Role Phone Elsewhere, Pcp Primary Care Provider Unavailabl e Encounter Details Date Type Department Care Team (Late st Contact Info) Description 05/13/2003 Historical Ophthalmology RST OPH Luis Carlos Horton M.D. Social History Tobacco Use Types Packs/Day Years Used Date Smoking Tobacco: Never Assessed Comments Unknown Sex and Gender Information Value Date Recorded Sex Assigned at Female 03/24/2018 4:51 PM CDT Legal Sex Female 6:23 AM SEAL SKINNER Gender Identity Female 03/24/2018 4:51 PM CDT Sexual Orientation Straight 03/24/2018 4: 51 PM CDT documented as of this encounter Progress Notes * Luis Carlos Horton M.D. - 05/13/2003 12:00 AM CDT Eye General CHIEF COMPLAINT nevus follow up HISTORY OF PRESENT ILLNESS vision stable. Denies any changes in vision. Pt being f/u for choroidal nevus OD. IMPRESSION / REPORT / PLAN #1 nevus OD unchanged since earlier photos;Rec U/S ; U/S showselevation 2.7mm no change DIAGNOSIS #1 nevus OD unchanged since earlier photos;Rec U/S ; U/S showselevation 2.7mm no change in contour;rec see 9 months CDM Reports - EYEGEN Id: [id number] Status: Fnl documented in this encounter Plan of Treatment Upcoming Encounters Date Type Department Care Team (Latest Contact Info) Description 09/20/2024 3:00 PM SEAL SKINNER Infusion Department of Infusion Therapy in [place], [place] [address] [place] [address] Amisha Hughes APRN, C.N.P. [address] [place] [phone] 09/27/2024 9:15 AM SEAL SKINNER Ancillary Procedure Department of Ophthalmology in [place], [place] [address] [place] [phone] Asmita Davies M.D. [address] [place] [phone] 09/27/2024 9:45 AM SEAL SKINNER Ancillary Procedure Department of Ophthalmology in [place], [place] [address] [place] [phone] Asmita Davies M.D. [address] [place] [phone] 09/27/2024 10:00 AM SEAL SKINNER Office Visit Department of Ophthalmology in [place], [place] [address] [place] [phone] Asmita Davies M.D. [address] [place] [phone] 09/27/2024 1:00 PM SEAL SKINNER Office Visit [facility] in [place], [place] [address] [place] [phone] Oh Mckeon APRN, C.N.P., M.S.N. [address] [place] [phone] 10/18/2024 1:00 PM SEAL SKINNER Comprehensive Visit Department of Obstetrics and Gynecology in [place], [place] [address] [place] [phone] Teresa Espitia APRN, C.N.P., D.N.P. [address] [place] [phone] documented as of this encounter Visit Diagnoses Not on filedocumented in this encounter Additional Health Concerns Infection Onset Date Last Indicated Resolved Time COVID19 Pending 10/06/2020 10/06/2020 10/06/2020 6 :04 PM SEAL SKINNER documented as of this encounter Care Teams Mobile Electronics Installer Relationship Specialty Start Date End Date Elsewhere, Pcp PCP - General Internal Medicine 08/31/22 documented as of this encounter
--- OUTSIDE RECORDS SUMMARY | 2024-09-10 16:21 | XMS_ITS | Encounter Summary ---
Author Organization [facility] Address [address] [place] [address] Care Team Providers Care Plunger Machine Operator Name Role Phone Elsewhere, Pcp Primary Care Provider Unavailabl e Encounter Details Date Type Department Care Team (Late st Contact Info) Description 09/08/2010 Historical Ophthalmology RST OPH Debbie Owens M.D. [address] [place] [address] Social History Tobacco Use Types Packs/Day Years Used Date Smoking Tobacco: Never Assessed Comments Unknown Sex and Gender Information Value Date Recorded Sex Assigned at Female 03/24/2018 4:51 PM CDT Legal Sex Female 6:23 AM FINANCE ATTORNEY Gender Identity Female 03/24/2018 4:51 PM CDT Sexual Orientation Straight 03/24/2018 4: 51 PM CDT documented as of this encounter Progress Notes * Debbie Owens M.D. - 09/08/2010 8:16 AM CDT Eye General CHIEF COMPLAINT Pressure checks HISTORY OF PRESENT ILLNESS Patient returns for diurnals today. No new concerns per patient. CDM Reports - EYEGEN Id: [id number] Status: Fnl documented in this encounter Plan of Treatment Upcoming Encounters Date Type Department Care Team (Latest Contact Info) Description 09/20/2024 3:00 PM FINANCE ATTORNEY Infusion Department of Infusion Therapy in [place], [place] [address] [place] [address] [place] [address] Amisha Hughes APRN, C.N.P. [address] [place] [phone] 09/27/2024 9:15 AM FINANCE ATTORNEY Ancillary Procedure Department of Ophthalmology in [place], [place] [address] [place] [phone] Asmita Davies M.D. [address] [place] [phone] 09/27/2024 9:45 AM FINANCE ATTORNEY Ancillary Procedure Department of Ophthalmology in [place], [place] [address] [place] [phone] Asmita Davies M.D. [address] [place] [phone] 09/27/2024 10:00 AM FINANCE ATTORNEY Office Visit Department of Ophthalmology in [place], [place] [address] [place] [phone] Asmita Davies M.D. [address] [place] [phone] 09/27/2024 1:00 PM FINANCE ATTORNEY Office Visit [facility] in [address] [phone] Oh Mckeon APRN, C.N.P., M.S.N. [address] [place] [phone] 10/18/2024 1:00 PM FINANCE ATTORNEY Comprehensive Visit Department of Obstetrics and Gynecology in [address] [phone] Teresa Espitia APRN, C.N.P., D.N.P. [address] [place] [phone] documented as of this encounter Visit Diagnoses Not on filedocumented in this encounter Additional Health Concerns Infection Onset Date Last Indicated Resolved Time COVID19 Pending 10/06/2020 10/06/2020 10/06/2020 6 :04 PM FINANCE ATTORNEY documented as of this encounter Care Teams Plunger Machine Operator Relationship Specialty Start Date End Date Elsewhere, Pcp PCP - General Internal Medicine 08/31/22 documented as of this encounter
--- OUTSIDE RECORDS SUMMARY | 2024-09-10 16:21 | XMS_ITS | Encounter Summary ---
Author Organization [facility] Address [address] [place] [address] Care Team Providers Care Service Or Work Dispatcher Chief Name Role Phone Elsewhere, Pcp Primary Care Provider Unavailabl e Encounter Details Date Type Department Care Team (Late st Contact Info) Description 04/28/2010 Historical Ophthalmology RST OPH Domingo Tobar M.D. Social History Tobacco Use Types Packs/Day Years Used Date Smoking Tobacco: Never Assessed Comments Unknown Sex and Gender Information Value Date Recorded Sex Assigned at Female 03/24/2018 4:51 PM CDT Legal Sex Female 6:23 AM CYBERATHLETE Gender Identity Female 03/24/2018 4:51 PM CDT Sexual Orientation Straight 03/24/2018 4: 51 PM CDT documented as of this encounter Progress Notes * Domingo Tobar M.D. - 04/28/2010 10:52 AM CDT Eye General CHIEF COMPLAINT Follow up on Pigmented choroidal nevus right eye, retinal hole, left eye, epiretinal membrane, right eye HISTORY OF PRESENT ILLNESS This is a 75 year old female here for a follow up on Pigmented choroidal nevus right eye, retinal hole, left eye, epiretinal membrane, right eye . She has sub- foveal fluid, right eye, history of vascular decompensation post pole, right eye and cataracts, both worse right eye than left eye which shesees Dr. Adams for. Vision seems to be stable since being seen in September. Denies flashes of light and floaters. Patient denies ocular pain. 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 [address] [place] [phone] 09/27/2024 9:15 AM CYBERATHLETE Ancillary Procedure Department of Ophthalmology in [place], [place] [address] [place] [phone] Asmita Davies M.D. [address] [place] [phone] 09/27/2024 9:45 AM CYBERATHLETE Ancillary Procedure Department of Ophthalmology in [place], [place] [address] [place] [phone] Asmita Davies M.D. [address] [place] [phone] 09/27/2024 10:00 AM CYBERATHLETE Office Visit Department of Ophthalmology in [place], [place] [address] [place] [address] Asmita Davies M.D. [address] [place] [phone] 09/27/2024 1:00 PM CYBERATHLETE Office Visit [facility] in [place], [place] [address] [place] [phone] Oh Mckeon APRN, C.N.P., M.S.N. [address] [place] [phone] 10/18/2024 1:00 PM CYBERATHLETE Comprehensive Visit Department of Obstetrics and Gynecology in [place], [place] [address] [place] [phone] Teresa Espitia APRN, C.N.P., D.N.P. [address] [place] [phone] documented as of this encounter Visit Diagnoses Not on filedocumented in this encounter Additional Health Concerns Infection Onset Date Last Indicated Resolved Time COVID19 Pending 10/06/2020 10/06/2020 10/06/2020 6 :04 PM CYBERATHLETE documented as of this encounter Care Teams Service Or Work Dispatcher Chief Relationship Specialty Start Date End Date Elsewhere, Pcp PCP - General Internal Medicine 08/31/22 documented as of this encounter
--- OUTSIDE RECORDS SUMMARY | 2024-09-10 16:21 | XMS_ITS | Encounter Summary ---
Author Organization [facility] Address [address] [place] [address] Care Team Providers Care Administrative Services Director Name Role Phone Elsewhere, Pcp Primary Care Provider Unavailabl e Encounter Details Date Type Department Care Team (Late st Contact Info) Description 06/12/2010 Historical Ophthalmology RST OPH Debbie Owens M.D. [address] [place] [address] Social History Tobacco Use Types Packs/Day Years Used Date Smoking Tobacco: Never Assessed Comments Unknown Sex and Gender Information Value Date Recorded Sex Assigned at Female 03/24/2018 4:51 PM CDT Legal Sex Female 6:23 AM NETEZZA ARCHITECT Gender Identity Female 03/24/2018 4:51 PM CDT Sexual Orientation Straight 03/24/2018 4: 51 PM CDT documented as of this encounter Progress Notes * Debbie Owens M.D. - 06/12/2010 6:44 AM CDT Eye General CHIEF COMPLAINT glaucoma suspect, Follow up on Pigmented choroidal nevus right eye, retinal hole, left eye, epiretinal membrane, right eye HISTORY OF PRESENT ILLNESS This is a 75 year old female here for a follow up on Pigmented choroidal nevus right eye, retinal hole, left eye, epiretinal membrane, right eye . ; She has sub-foveal fluid, right eye; history of vascular decompensation post pole; right eye and cataracts; both worse right eye than left eye which she sees Dr. Adams for. ; Patient feels her vision has gotten darker and dimmer since the last exam; Denies flashes of light and floaters. Patient denies ocular pain. JHO: Patient reports no ocular injury in the past, prednisone use, hypotension, migraines or Raynaud's. CK: 75 y/o female referred by Dr. Tobar for glaucoma eval. Dr. Tobar noted increased c/d ratio right optic nerve. Tmax17/15. 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 Visual field defect on the right may beexplained by nasal nevus with SRF. Plan: Continue to monitor, repeat VISUAL FIELD 6 months. 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 [address] [place] [phone] 09/27/2024 9:15 AM NETEZZA ARCHITECT Ancillary Procedure Department of Ophthalmology in [place], [place] [address] [place] [phone] Asmita Davies M.D. [address] [place] [phone] 09/27/2024 9:45 AM NETEZZA ARCHITECT Ancillary Procedure Department of Ophthalmology in [place], [place] [address] [place] [phone] Asmita Davies M.D. [address] [place] [phone] 09/27/2024 10:00 AM NETEZZA ARCHITECT Office Visit Department of Ophthalmology in [place], [place] [address] [place] [phone] Asmita Davies M.D. [address] [place] [phone] 09/27/2024 1:00 PM NETEZZA ARCHITECT Office Visit [facility] in [place], [place] [address] [place] [address] Oh Mckeon APRN, C.N.P., M.S.N. [address] [place] [phone] 10/18/2024 1:00 PM NETEZZA ARCHITECT Comprehensive Visit Department of Obstetrics and Gynecology in [place], [place] [address] [place] [address] Teresa Espitia APRN, C.N.P., D.N.P. [address] [place] [phone] documented as of this encounter Visit Diagnoses Not on filedocumented in this encounter Additional Health Concerns Infection Onset Date Last Indicated Resolved Time COVID19 Pending 10/06/2020 10/06/2020 10/06/2020 6 :04 PM NETEZZA ARCHITECT documented as of this encounter Care Teams Administrative Services Director Relationship Specialty Start Date End Date Elsewhere, Pcp PCP - General Internal Medicine 08/31/22 documented as of this encounter
--- OUTSIDE RECORDS SUMMARY | 2024-09-10 16:21 | XMS_ITS | Encounter Summary ---
Author Organization [facility] Address [address] [place] [address] Care Team Providers Care Income Tax Preparer Name Role Phone Elsewhere, Pcp Primary Care Provider Unavailabl e Encounter Details Date Type Department Care Team (Late st Contact Info) Description 08/13/2008 Historical Ophthalmology RST OPH Kaitlin Wilkinson M.D. [address] [place] [address] Social History Tobacco Use Types Packs/Day Years Used Date Smoking Tobacco: Never Assessed Comments Unknown Sex and Gender Information Value Date Recorded Sex Assigned at Female 03/24/2018 4:51 PM CDT Legal Sex Female 6:23 AM FISH AND GAME CLUB MANAGER Gender Identity Female 03/24/2018 4:51 PM CDT Sexual Orientation Straight 03/24/2018 4: 51 PM CDT documented as of this encounter Progress Notes * Kaitlin Wilkinson M.D. - 08/13/2008 11:49 AM CDT Eye General HISTORY OF PRESENT ILLNESS s/p PPV, MP for erm mac hole Right eye Patient notes no changes in vision since last visit. Patient denies ocular pain. No new concerns. Patient requests both eyes dilated for preventive measures in left eye. IMPRESSION / REPORT / PLAN A & B-SCAN RE from 01/2008: nevus measured 1.9 - 2.0mm thickness x 9 x 7.8mm @ 2:30 PE, overlying subretinal fluid, medium to low reflectivity, no extrascleral extension. LS #1 Pigmented choroidal nevus right eye - overlying subretinal fluid present - minimal change since photos Sep 1998 by vascular landmarks stable, recheck in 1 year #2 retinal hole, left eye stable #3 Epiretinal membrane, right eye status post Grid Photocoagulation s/p erm stripping with bubble/positioning for secondary macular hole 05/30. OCT results: right eye: subretinal fluid, mild CME #4 Macular hole, right eye sec to #3 #5Hx vascular decompensation post pole, right eye Plan: taper PF. FU 2-3months with OCT RE DIAGNOSIS #1 Pigmented choroidal nevus right eye #2 retinal hole, left eye #3 Epiretinal membrane, right eye #4 Macular hole, right eye sec to #3 CDM Reports - EYEGEN Id: [id number] Status: Fnl documented in this encounter Plan of Treatment Upcoming Encounters Date Type Department Care Team (Latest Contact Info) Description 09/20/2024 3:00 PM FISH AND GAME CLUB MANAGER Infusion Department [place] [address] [place] [address] [place] [address] Amisha Hughes, AZAEL, C.N.P. [address] [place] [phone] 09/27/2024 9:15 AM FISH AND GAME CLUB MANAGER Ancillary Procedure Department of Ophthalmology in [address] [place] [address] Asmita Davies M.D. [address] [place] [phone] 09/27/2024 9:45 AM FISH AND GAME CLUB MANAGER Ancillary Procedure Department of Ophthalmology in [address] [place] [phone] Asmita Davies M.D. [address] [place] [phone] 09/27/2024 10:00 AM FISH AND GAME CLUB MANAGER Office Visit Department of Ophthalmology in [address] [place] [phone] Asmita Davies M.D. [address] [place] [phone] 09/27/2024 1:00 PM FISH AND GAME CLUB MANAGER Office Visit [facility] in [address] [place] [phone] Oh Mckeon APRN, C.N.P., M.S.N. [address] [place] [phone] 10/18/2024 1:00 PM FISH AND GAME CLUB MANAGER Comprehensive Visit Department of Obstetrics and Gynecology in [address] [place] [phone] Teresa Espitia APRN, Hugo.N.P., D.N.P. [address] [place] [phone] documented as of this encounter Visit Diagnoses Not on filedocumented in this encounter Additional Health Concerns Infection Onset Date Last Indicated Resolved Time COVID19 Pending 10/06/2020 10/06/2020 10/06/2020 6 :04 PM FISH AND GAME CLUB MANAGER documented as of this encounter Care Teams Income Tax Preparer Relationship Specialty Start Date End Date Elsewhere, Pcp PCP - General Internal Medicine 08/31/22 documented as of this encounter
--- OUTSIDE RECORDS SUMMARY | 2024-09-10 16:21 | XMS_ITS | Encounter Summary ---
Author Organization [facility] Address [address] [place] [address] Care Team Providers Care Classroom Aide Name Role Phone Elsewhere, Pcp Primary Care Provider Unavailabl e Encounter Details Date Type Department Care Team (Late st Contact Info) Description 10/15/2008 Historical Ophthalmology RST OPH Kaitlin Wilkinson M.D. [address] [place] [address] Social History Tobacco Use Types Packs/Day Years Used Date Smoking Tobacco: Never Assessed Comments Unknown Sex and Gender Information Value Date Recorded Sex Assigned at Female 03/24/2018 4:51 PM CDT Legal Sex Female 6:23 AM STILL CLEANER Gender Identity Female 03/24/2018 4:51 PM CDT Sexual Orientation Straight 03/24/2018 4: 51 PM CDT documented as of this encounter Progress Notes * Kaitlin Wilkinson M.D. - 10/15/2008 10:13 AM CST Eye General CHIEF COMPLAINT Follow up Epiretinal membrane, right eye s/p stripping HISTORY OF PRESENT ILLNESS Patient here for 2-3 month follow up with OCT. Patient notes no change in vision since last visit. Patient denies ocular pain. Patient denies flashing lights, floaters, diplopia. No new concerns today. Daughter is with today. IMPRESSION / REPORT / PLAN 10/15/08 RE: nevus: 2.0 - 2.1 x 11.6 [...] since photos Sep 1998 by vascular landmarks US today shows slight increased thickness compared to 01/19. #2 retinal hole, left eye stable #3 Epiretinal membrane, right eye s/p Grid Photocoagulation s/p erm stripping with bubble/positioning for secondary macular hole 05/20. (Macular hole not seen on OCT; and OCT of 05/20 not available on OCT machine or scanned in; no iatrogenic hole in op note) 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. OCT results: right eye: persistent subretinal fluid, mild CME FA: Right: no leakage; staining of the nevus, but no leakage; macula: no leakage Left: normal #5 Hx vascular decompensation post pole, right eye per CAM/DMR #6 Cataracts, both Could have cataract surgery right eye she wishes to improve vision. Plan: Refer to Dr. Tobar for evaluation of nevus as it has increased in basal dimensions by US. Thickness remains unchanged. Discussed that IVK.anti-VEGF/diamox do not help residual subfoveal fluid in this condition since there is no active leakage. Recommend observation. DIAGNOSIS #1 Pigmented choroidal nevus right eye #2 retinal hole, left eye #3 Epiretinal membrane, right eye #4 Sub-foveal fluid, right eye #5 Hx vascular decompensation post pole, right eye #6 Cataracts, both CDM Reports - EYEGEN Id: [id number] Status: Fnl documented in this encounter Plan of Treatment Upcoming Encounters Date Type Department Care Team (Latest Contact Info) Description 09/20/2024 3:00 PM STILL CLEANER Infusion Department of Infusion Therapy in [place], [place] [address] [facility] [place] [place] [address] Amisha Hughes, RETAIL MERCHANDISING COORDINATOR, C.N.P. [address] [place] [phone] 09/27/2024 9:15 AM STILL CLEANER Ancillary Procedure Department of Ophthalmology in [place], [place] [address] [place] [phone] Asmita Davies M.D. [address] [place] [phone] 09/27/2024 9:45 AM STILL CLEANER Ancillary Procedure Department of Ophthalmology in [place], [place] [address] [place] [phone] Asmita Davies M.D. [address] [place] [phone] 09/27/2024 10:00 AM STILL CLEANER Office Visit Department of Ophthalmology in [address] [phone] Asmita Davies M.D. [address] [place] [phone] 09/27/2024 1:00 PM STILL CLEANER Office Visit [facility] in [address] [phone] Oh Mckeon APRN, C.N.P., M.S.N. [address] [place] [phone] 10/18/2024 1:00 PM STILL CLEANER Comprehensive Visit Department of Obstetrics and Gynecology in [address] [phone] Teresa Espitia APRN, C.N.P., D.N.P. [address] [place] [phone] documented as of this encounter Visit Diagnoses Not on filedocumented in this encounter Additional Health Concerns Infection Onset Date Last Indicated Resolved Time COVID19 Pending 10/06/2020 10/06/2020 10/06/2020 6 :04 PM STILL CLEANER documented as of this encounter Care Teams Classroom Aide Relationship Specialty Start Date End Date Elsewhere, Pcp PCP - General Internal Medicine 08/31/22 documented as of this encounter
--- OUTSIDE RECORDS SUMMARY | 2024-09-10 16:21 | XMS_ITS | Encounter Summary ---
Author Organization [facility] Address [address] [place] [address] Care Team Providers Care Rotogravure Press Operator Name Role Phone Elsewhere, Pcp Primary Care Provider Unavailabl e Encounter Details Date Type Department Care Team (Late st Contact Info) Description 07/27/2007 Historical Ophthalmology RST OPH Luis Carlos Horton M.D. Social History Tobacco Use Types Packs/Day Years Used Date Smoking Tobacco: Never Assessed Comments Unknown Sex and Gender Information Value Date Recorded Sex Assigned at Female 03/24/2018 4:51 PM CDT Legal Sex Female 6:23 AM FIRE EQUIPMENT OPERATOR Gender Identity Female 03/24/2018 4:51 PM CDT Sexual Orientation Straight 03/24/2018 4: 51 PM CDT documented as of this encounter Progress Notes * Luis Carlos Horton M.D. - 07/27/2007 3:05 PM CDT Eye General CHIEF COMPLAINT 2 month follow up S/P Focal - grid Argon green laser photocoagulation, right eye on 04/20/07 HISTORY OF PRESENT ILLNESS This is a 72 year old female here for a 2 month return visit following Focal - grid Argon green laser photocoagulation,right eye. Patient states that vision has deteriorated slightly since last visit. Also thinks left eye vision may be disturbed by the right eye vision problem. Patient denies ocular pain. Denies flashes of light or floaters. Denies diplopia. 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 - minimal change since photos Sep 1998 U/S shows max thickess of 2.4mm ; 1998 showed one reading of 2.4 and profile does not seem different( #2 retinal hole OS discussed and flashes and floater book given #3 epiretinal membrane OD sataus post Grid Photocoagulation #4 vascular decompensation post pole OD discussed epm and Rx ther of; discussed riskes of surgery and aims and realistic outcomes; we have decided to wait another 6-8 weeks and reassess; if vision continues to decline, then it would make astronger case for Rx; DIAGNOSIS #1 Pigmented choroidal nevus right eye #2 retinal hole OS #3 epiretinal membrane OD sataus post Grid Photocoagulation #4 vascular decompensation post pole OD CDM Reports - EYEGEN Id: [id number] Status: Fnl documented in this encounter Plan of Treatment Upcoming Encounters Date Type Department Care Team (Latest Contact Info) Description 09/20/2024 3:00 PM FIRE EQUIPMENT OPERATOR Infusion Department of Infusion Therapy in [place], [place] [address] [place] [address] [place] [address] Amisha Hughes, AZAEL, C.N.P. [address] [place] [phone] 09/27/2024 9:15 AM FIRE EQUIPMENT OPERATOR Ancillary Procedure Department of Ophthalmology in [place], [place] [address] [place] [address] Asmita Davies M.D. [address] [place] [phone] 09/27/2024 9:45 AM FIRE EQUIPMENT OPERATOR Ancillary Procedure Department of Ophthalmology in [place], [place] [address] [place] [phone] Asmita Davies M.D. [address] [place] [phone] 09/27/2024 10:00 AM FIRE EQUIPMENT OPERATOR Office Visit Department of Ophthalmology in [place], [place] [address] [place] [phone] Asmita Davies M.D. [address] [place] [phone] 09/27/2024 1:00 PM FIRE EQUIPMENT OPERATOR Office Visit [facility] in [place], [place] [address] [place] [address] Oh Mckeon APRN, C.N.P., M.S.N. [address] [place] [phone] 10/18/2024 1:00 PM FIRE EQUIPMENT OPERATOR Comprehensive Visit Department of Obstetrics and Gynecology in [place], [place] [address] [place] [phone] Teresa Espitia APRN, C.N.P., D.N.P. [address] [place] [phone] documented as of this encounter Visit Diagnoses Not on filedocumented in this encounter Additional Health Concerns Infection Onset Date Last Indicated Resolved Time COVID19 Pending 10/06/2020 10/06/2020 10/06/2020 6 :04 PM FIRE EQUIPMENT OPERATOR documented as of this encounter Care Teams Rotogravure Press Operator Relationship Specialty Start Date End Date Elsewhere, Pcp PCP - General Internal Medicine 08/31/22 documented as of this encounter
--- OUTSIDE RECORDS SUMMARY | 2024-09-10 16:21 | XMS_ITS | Encounter Summary ---
Author Organization [facility] Address [address] [place] [address] Care Team Providers Care Youth Probation Officer Name Role Phone Elsewhere, Pcp Primary Care Provider Unavailabl e Encounter Details Date Type Department Care Team (Late st Contact Info) Description 02/06/2009 Historical Ophthalmology RST OPH Domingo Tobar M.D. Social History Tobacco Use Types Packs/Day Years Used Date Smoking Tobacco: Never Assessed Comments Unknown Sex and Gender Information Value Date Recorded Sex Assigned at Female 03/24/2018 4:51 PM CDT Legal Sex Female 6:23 AM PERSONAL SUPPORT WORKER Gender Identity Female 03/24/2018 4:51 PM CDT Sexual Orientation Straight 03/24/2018 4: 51 PM CDT documented as of this encounter Progress Notes * Domingo Tobar M.D. - 02/06/2009 8:06 AM CDT Eye General CHIEF COMPLAINT Choroidal nevus HISTORY OF PRESENT ILLNESS Patient returns for an evaluation of choroidal nevus, right eye. Patient states that she also has cataracts and has had macular hole surgery, right eye. Notes that her vision seems to be a little dimmer in her right eye, gradual since last visit, constant. Denies flashing lights or floaters. Patient denies ocular pain. IMPRESSION / REPORT / PLAN 02/06/09 US RE: Nevus: 2.1 x 11.3 [...] to ora at 3 US today shows stability #2 retinal hole, left eye stable #3 Epiretinal membrane, right eye with subretinal fluid s/p Grid Photocoagulation s/p erm stripping with bubble/positioning for secondary macular hole 05/20. (Macular hole not seen on OCT; Obtain oct of maculas 01/20; subretinal fluid still present right eye Consult requested by: Dr. Kaitlin Wilkinson [id number] 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.05/21 10/21: FA:Right: no leakage; staining of the nevus, but no leakage; macula: no leakage-01/20 actually looking at it there is a small amount of leakage Left: normal see with Dr Martins and this is our thought to try this Recommend Avastin. Discussed risks, goals, advanced directives and alternatives. Also discussed thenecessity of other members of the team participating in this procedure. This was discussed with thepatient (or legal access service representative and others present during discussion). The patient understands andwishes to proceed. Discussed the lack of approval for intraocular use. Discussed possible systemic problems such as GI bleed, PA and stroke. Plan to proceed with Avastin injection to the right eye. #5 Hx vascular decompensation post pole, right eye per CAM/DMR #6 Cataracts, both GINA shows no improvement in right eye 02/06/2009 rtc 5 weeks with oct DIAGNOSIS #1 Pigmented choroidal nevus right eye #2 retinal hole, left eye #3 Epiretinal membrane, right eye with subretinal fluid #4 Sub-foveal fluid, right eye #5 Hx vascular decompensation post pole, right eye #6 Cataracts, both CDM Reports - EYEGEN Id: [id number] Status: Fnl documented in this encounter Plan of Treatment Upcoming Encounters Date Type Department Care Team (Latest Contact Info) Description 09/20/2024 3:00 PM PERSONAL SUPPORT WORKER Infusion Department of Infusion Therapy in [place], [place] [address] [place] [address] Amisha Hughes APRN, C.N.P. [address] [place] [phone] 09/27/2024 9:15 AM PERSONAL SUPPORT WORKER Ancillary Procedure Department of Ophthalmology in [place], [place] [address] [place] [phone] Asmita Davies M.D. [address] [place] [phone] 09/27/2024 9:45 AM PERSONAL SUPPORT WORKER Ancillary Procedure Department of Ophthalmology in [place], [place] [address] [place] [phone] Asmita Davies M.D. [address] [place] [phone] 09/27/2024 10:00 AM PERSONAL SUPPORT WORKER Office Visit Department of Ophthalmology in [place], [place] [address] [place] [phone] Asmita Davies M.D. [address] [place] [phone] 09/27/2024 1:00 PM PERSONAL SUPPORT WORKER Office Visit [facility] in [place], [place] [address] [place] [phone] Oh Mckeon, AZAEL, C.N.P., M.S.N. [address] [place] [phone] 10/18/2024 1:00 PM PERSONAL SUPPORT WORKER Comprehensive Visit Department of Obstetrics and Gynecology in [place], [place] [address] [place] [phone] Teresa Espitia APRN, C.N.P., D.N.P. [address] [place] [phone] documented as of this encounter Visit Diagnoses Not on filedocumented in this encounter Additional Health Concerns Infection Onset Date Last Indicated Resolved Time COVID19 Pending 10/06/2020 10/06/2020 10/06/2020 6 :04 PM PERSONAL SUPPORT WORKER documented as of this encounter Care Teams Youth Probation Officer Relationship Specialty Start Date End Date Elsewhere, Pcp PCP - General Internal Medicine 08/31/22 documented as of this encounter
--- OUTSIDE RECORDS SUMMARY | 2024-09-10 16:21 | XMS_ITS | Encounter Summary ---
Author Organization [facility] Address [address] [place] [address] Care Team Providers Care Reporting Analyst Name Role Phone Elsewhere, Pcp Primary Care Provider Unavailabl e Encounter Details Date Type Department Care Team (Late st Contact Info) Description 12/10/2004 Historical Ophthalmology RST OPH Domingo Tobar M.D. Social History Tobacco Use Types Packs/Day Years Used Date Smoking Tobacco: Never Assessed Comments Unknown Sex and Gender Information Value Date Recorded Sex Assigned at Female 03/24/2018 4:51 PM CDT Legal Sex Female 6:23 AM GREEN PRIZE PACKER Gender Identity Female 03/24/2018 4:51 PM CDT Sexual Orientation Straight 03/24/2018 4: 51 PM CDT documented as of this encounter Progress Notes * Domingo Tobar M.D. - 12/10/2004 12:00 AM CST Eye General CHIEF COMPLAINT nevus recheck HISTORY OF PRESENT ILLNESS Patient notes that she does not see as well as she has in the past. She would like a refraction while she's here today. Denies floaters, flashes of light, pain or diplopia. 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 Explained diagnosis and treatment plan; patient expressed understanding of the content. 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 [address] [place] [phone] 09/27/2024 9:15 AM GREEN PRIZE PACKER Ancillary Procedure Department of Ophthalmology in [place], [place] [address] [place] [phone] Asmita Davies M.D. [address] [place] [phone] 09/27/2024 9:45 AM GREEN PRIZE PACKER Ancillary Procedure Department of Ophthalmology in [place], [place] [address] [place] [phone] Asmita Davies M.D. [address] [place] [phone] 09/27/2024 10:00 AM GREEN PRIZE PACKER Office Visit Department of Ophthalmology in [place], [place] [address] [place] [phone] Asmita Davies M.D. [address] [place] [phone] 09/27/2024 1:00 PM GREEN PRIZE PACKER Office Visit [facility] in [place], [place] [address] [place] [phone] Oh Mckeon APRN, C.N.P., M.S.N. [address] [place] [phone] 10/18/2024 1:00 PM GREEN PRIZE PACKER Comprehensive Visit Department of Obstetrics and Gynecology in [place], [place] [address] [place] [phone] Teresa Espitia, AZAEL, C.N.P., D.N.P. [address] [place] [phone] documented as of this encounter Visit Diagnoses Not on filedocumented in this encounter Additional Health Concerns Infection Onset Date Last Indicated Resolved Time COVID19 Pending 10/06/2020 10/06/2020 10/06/2020 6 :04 PM GREEN PRIZE PACKER documented as of this encounter Care Teams Reporting Analyst Relationship Specialty Start Date End Date Elsewhere, Pcp PCP - General Internal Medicine 08/31/22 documented as of this encounter
--- OUTSIDE RECORDS SUMMARY | 2024-09-10 16:21 | XMS_ITS | Encounter Summary ---
Author Organization [facility] Address [address] [place] [address] Care Team Providers Care Hydration Plant Operator Name Role Phone Elsewhere, Pcp Primary Care Provider Unavailabl e Encounter Details Date Type Department Care Team (Late st Contact Info) Description 02/09/2008 Historical Ophthalmology RST OPH William Villareal M.D. [address] [place] [phone] Social History Tobacco Use Types Packs/Day Years Used Date Smoking Tobacco: Never Assessed Comments Unknown Sex and Gender Information Value Date Recorded Sex Assigned at Female 03/24/2018 4:51 PM CDT Legal Sex Female 6:23 AM MACHINE BUILDER Gender Identity Female 03/24/2018 4:51 PM CDT Sexual Orientation Straight 03/24/2018 4: 51 PM CDT documented as of this encounter Progress Notes * William Villareal M.D. - 02/09/2008 10:19 AM CDT Eye General CHIEF COMPLAINT Follow up Pigmented choroidal nevus right eye HISTORY OF PRESENT ILLNESS She has noted decreased vision with her right eye since her last visit. She has been having troublewith her depth persption. Both eyes feel tired and dry. No floaters or flashes. IMPRESSION / REPORT / PLAN A & B-SCAN RE: nevus measured 1.9 - 2.0mm thickness x 9 x 7.8mm @ 2:30 PE, overlying subretinalfluid, medium to low reflectivity, no extrascleral extension. 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 Recommend erm stripping with bubble/positioning for secondary macular hole Discussed risks, goals, alternatives, advance directives, and the necessity of other members of thehealthcare team participating in the procedure with the patient (or legal manufacturing sales representative and otherspresent during the discussion). The patient understands and wishes to proceed with the procedure. Full code, living will not on file, she will bring to [facility] if she decides to go ahead. 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 #5Hx vascular decompensation post pole, right eye DIAGNOSIS #1 Pigmented choroidal nevus right eye #2 retinal hole, left eye #3 Epiretinal membrane, right eye #4 Hx vascular decompensation post pole, right eye CDM Reports - EYEGEN Id: [id number] Status: Fnl documented in this encounter Plan of Treatment Upcoming Encounters Date Type Department Care Team (Latest Contact Info) Description 09/20/2024 3:00 PM MACHINE BUILDER Infusion Department of Infusion Therapy in [place], [place] [address] [facility] [address] Amisha Hughes, AZAEL, C.N.P. [address] [place] [phone] 09/27/2024 9:15 AM MACHINE BUILDER Ancillary Procedure Department of Ophthalmology in [place], [place] [address] [place] [phone] Asmita Davies M.D. [address] [place] [phone] 09/27/2024 9:45 AM MACHINE BUILDER Ancillary Procedure Department of Ophthalmology in [place], [place] [address] [place] [phone] Asmita Davies M.D. [address] [place] [phone] 09/27/2024 10:00 AM MACHINE BUILDER Office Visit Department of Ophthalmology in [place], [place] [address] [place] [phone] Asmita Davies M.D. [address] [place] [phone] 09/27/2024 1:00 PM MACHINE BUILDER Office Visit [facility] in [place], [place] [address] [place] [phone] Oh Mckeon APRN, C.N.P., M.S.N. [address] [place] [phone] 10/18/2024 1:00 PM MACHINE BUILDER Comprehensive Visit Department of Obstetrics and Gynecology in [address] [phone] Teresa Espitia APRN C.N.P., D.N.P. [address] [place] [phone] documented as of this encounter Visit Diagnoses Not on filedocumented in this encounter Additional Health Concerns Infection Onset Date Last Indicated Resolved Time COVID19 Pending 10/06/2020 10/06/2020 10/06/2020 6 :04 PM MACHINE BUILDER documented as of this encounter Care Teams Hydration Plant Operator Relationship Specialty Start Date End Date Elsewhere, Pcp PCP - General Internal Medicine 08/31/22 documented as of this encounter
--- OUTSIDE RECORDS SUMMARY | 2024-09-10 16:21 | XMS_ITS | Encounter Summary ---
Author Organization [facility] Address [address] [place] [address] Care Team Providers Care Storage Center Manager Name Role Phone Elsewhere, Pcp Primary Care Provider Unavailabl e Encounter Details Date Type Department Care Team (Late st Contact Info) Description 07/14/2006 Historical Ophthalmology RST OPH Luis Carlos Horton M.D. Social History Tobacco Use Types Packs/Day Years Used Date Smoking Tobacco: Never Assessed Comments Unknown Sex and Gender Information Value Date Recorded Sex Assigned at Female 03/24/2018 4:51 PM CDT Legal Sex Female 6:[address] RECORDING MONITOR Gender Identity Female 03/24/2018 4:51 PM CDT Sexual Orientation Straight 03/24/2018 4: 51 PM CDT documented as of this encounter Progress Notes * Luis Carlos Horton M.D. - 07/14/2006 12:00 AM CDT Eye General CHIEF COMPLAINT recheck nevus in the right eye HISTORY OF PRESENT ILLNESS Patient notes that she has noticed a gradual difficulty in reading road signs over the last year. Denies floaters, flashes of light, pain or diplopia. 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 - minimal change since photos Sep 1998 U/S shows max thickess of 1.6mm with overlying SRF over it (about the same as before); stable base dimensions; rec see 9 months #2 retinal hole OS DIAGNOSIS #1 Pigmented choroidal nevus right eye #2 retinal hole OS CDM Reports - EYEGEN Id: [id number] Status: Fnl documented in this encounter Plan of Treatment Upcoming Encounters Date Type Department Care Team (Latest Contact Info) Description 09/20/2024 3:[address] RECORDING MONITOR Infusion Department of Infusion Therapy in [place], [place] [address] [place] [address] Amisha Hughes APRN, C.N.P. [address] [place] [phone] 09/27/2024 9:[address] RECORDING MONITOR Ancillary Procedure Department of Ophthalmology in [place], [place] [address] [place] [phone] Asmita Davies M.D. [address] [place] [phone] 09/27/2024 9:[address] RECORDING MONITOR Ancillary Procedure Department of Ophthalmology in [place], [place] [address] [place] [phone] Asmita Davies M.D. [address] [place] [phone] 09/27/2024 10:[address] RECORDING MONITOR Office Visit Department of Ophthalmology in [place], [place] [address] [place] [phone] Asmita Davies M.D. [address] [place] [phone] 09/27/2024 1:[address] RECORDING MONITOR Office Visit [facility] in [place], [place] [address] [place] [phone] Oh Mckeon APRN, C.N.P., M.S.N. [address] [place] [phone] 10/18/2024 1:[address] RECORDING MONITOR Comprehensive Visit Department of Obstetrics and Gynecology in [place], [place] [address] [place] [phone] Teresa Espitia APRN, C.N.P., D.N.P. [address] [place] [phone] documented as of this encounter Visit Diagnoses Not on filedocumented in this encounter Additional Health Concerns Infection Onset Date Last Indicated Resolved Time COVID19 Pending 10/06/2020 10/06/2020 10/06/2020 6 [address] RECORDING MONITOR documented as of this encounter Care Teams Storage Center Manager Relationship Specialty Start Date End Date Elsewhere, Pcp PCP - General Internal Medicine 08/31/22 documented as of this encounter
--- OUTSIDE RECORDS SUMMARY | 2024-09-10 16:21 | XMS_ITS | Encounter Summary ---
Author Organization [facility] Address [address] [place] [address] Care Team Providers Care Security Public Safety Officer Name Role Phone Elsewhere, Pcp Primary Care Provider Unavailabl e Encounter Details Date Type Department Care Team (Late st Contact Info) Description 05/15/2008 Historical Ophthalmology RST OPH William Villareal M.D. [address] [place] [phone] Social History Tobacco Use Types Packs/Day Years Used Date Smoking Tobacco: Never Assessed Comments Unknown Sex and Gender Information Value Date Recorded Sex Assigned at Female 03/24/2018 4:51 PM CDT Legal Sex Female 6:23 AM LEARNING DISABILITIES SPECIALIST Gender Identity Female 03/24/2018 4:51 PM CDT Sexual Orientation Straight 03/24/2018 4: 51 PM CDT documented as of this encounter Progress Notes * William Villareal M.D. - 05/15/2008 8:18 AM CDT Eye General HISTORY OF PRESENT ILLNESS 73year old here for recheck of Pigmented choroidal nevus right eye, retinal hole, left eye, Epiretinal membrane, right eye, and Hx vascular decompensation post pole, right eye. She reports vision is stable. Patient denies ocular pain. No floaters or flashes of light. 2 days ago the red eye was shockingly red. this has since gone away. No matter or discharge. IMPRESSION / REPORT / PLAN A & [...] Grid Photocoagulation Looks much worse than previously OCT confirms full thickness macular hole and severe erm in the right eye, normal left eye Photo Interpretation: Photos confirm and document clinical findings of diagnosis and are of sufficient quality to permit their use to follow disease progression. Recommend erm stripping with bubble/positioning for secondary macular hole. Discussed risks, goals, alternatives, advance directives, and the necessity of other members of thehealthcare team participating in the procedure with the patient (or legal phlebotomy services representative and otherspresent during the discussion). The patient understands and wishes to proceed with the procedure. Full code, living will not on file, she will bring to [facility] if she decides to go ahead. Many questions answered plan Vitectomy, membrane peel, gas bubble, right eye scheduled for 05/30. #4 Macular hole, right eye sec to #3 #5Hx vascular decompensation post pole, right eye DIAGNOSIS #1 Pigmented choroidal nevus right eye #2 retinal hole, left eye #3 Epiretinal membrane, right eye #4 Macular hole, right eye sec to #3 CDM Reports - EYEGEN Id: [id number] Status: Fnl documented in this encounter Plan of Treatment Upcoming Encounters Date Type Department Care Team (Latest Contact Info) Description 09/20/2024 3:00 PM LEARNING DISABILITIES SPECIALIST Infusion Department of Infusion Therapy in [place], [place] [address] [place] [address] Amisha Hughes, AZAEL, C.N.P. [address] [place] [phone] 09/27/2024 9:15 AM LEARNING DISABILITIES SPECIALIST Ancillary Procedure Department of Ophthalmology in [place], [place] [address] [place] [phone] Asmita Davies M.D. [address] [place] [phone] 09/27/2024 9:45 AM LEARNING DISABILITIES SPECIALIST Ancillary Procedure Department of Ophthalmology in [place], [place] [address] [place] [phone] Asmita Davies M.D. [address] [place] [phone] 09/27/2024 10:00 AM LEARNING DISABILITIES SPECIALIST Office Visit Department of Ophthalmology in [place], [place] [address] [place] [phone] Asmita Davies M.D. [address] [place] [phone] 09/27/2024 1:00 PM LEARNING DISABILITIES SPECIALIST Office Visit [facility] in [place], [place] [address] [place] [phone] Oh Mckeon APRN, C.N.P., M.S.N. [address] [place] [phone] 10/18/2024 1:00 PM LEARNING DISABILITIES SPECIALIST Comprehensive Visit Department of Obstetrics and Gynecology in [place], [place] [address] [place] [phone] Teresa Espitia APRN, C.N.P., D.N.P. [address] [place] [phone] documented as of this encounter Visit Diagnoses Not on filedocumented in this encounter Additional Health Concerns Infection Onset Date Last Indicated Resolved Time COVID19 Pending 10/06/2020 10/06/2020 10/06/2020 6 :04 PM LEARNING DISABILITIES SPECIALIST documented as of this encounter Care Teams Security Public Safety Officer Relationship Specialty Start Date End Date Elsewhere, Pcp PCP - General Internal Medicine 08/31/22 documented as of this encounter
--- OUTSIDE RECORDS SUMMARY | 2024-09-10 16:21 | XMS_ITS | Encounter Summary ---
Author Organization [facility] Address [address] [place] [address] Care Team Providers Care Networking Administrator Name Role Phone Elsewhere, Pcp Primary Care Provider Unavailabl e Encounter Details Date Type Department Care Team (Late st Contact Info) Description 09/07/2007 Historical Ophthalmology RST OPH Luis Carlos Horton M.D. Social History Tobacco Use Types Packs/Day Years Used Date Smoking Tobacco: Never Assessed Comments Unknown Sex and Gender Information Value Date Recorded Sex Assigned at Female 03/24/2018 4:51 PM CDT Legal Sex Female 6:23 AM BOILER OUT Gender Identity Female 03/24/2018 4:51 PM CDT Sexual Orientation Straight 03/24/2018 4: 51 PM CDT documented as of this encounter Progress Notes * Luis Carlos Horton M.D. - 09/07/2007 1:53 PM CDT Eye General CHIEF COMPLAINT one month follow up Pigmented choroidal nevus right eye; vascular decompensation post pole, right eye HISTORY OF PRESENT ILLNESS This is a 81 year old female here for a one month return visit with OCT. Vision is stable. Patient denies ocular pain. Eyes feel dry. Denies flashes of light or floaters. 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 Holland and Dr. simon #2 retinal hole OS #3 epiretinal membrane OD status post Grid Photocoagulation #4 vascular decompensation post pole OD discussed erm and Rx there of; discussed riskes of surgery and aims and realistic outcomes; we havewaited 6-8 weeks and vision has actually improved, I cannot recommend at this time that surgery should be undertaken; many questions asked and answered the best I could; Daughter and son in law here and i answered several questions from them as well . I think that surgery at this time may be more complicated than standard case; cataract wuld advance; risk of RD present ; confounding problem is the nevus which will need followup; will arrange for Dr Villareal to see in about 4 months DIAGNOSIS #1 Pigmented choroidal nevus right eye #2 retinal hole OS #3 epiretinal membrane OD status post Grid Photocoagulation #4 vascular decompensation post pole OD CDM Reports - EYEGEN Id: [id number] Status: Fnl documented in this encounter Plan of Treatment Upcoming Encounters Date Type Department Care Team (Latest Contact Info) Description 09/20/2024 3:00 PM BOILER OUT Infusion Department of Infusion Therapy in [place], [place] [address] [place] [address] Amisha Hughes, AZAEL, C.N.P. [address] [place] [phone] 09/27/2024 9:15 AM BOILER OUT Ancillary Procedure Department of Ophthalmology in [place], [place] [address] [place] [phone] Asmita Davies M.D. [address] [place] [phone] 09/27/2024 9:45 AM BOILER OUT Ancillary Procedure Department of Ophthalmology in [place], [place] [address] [place] [phone] Asmita Davies M.D. [address] [place] [phone] 09/27/2024 10:00 AM BOILER OUT Office Visit Department of Ophthalmology in [place], [place] [address] [place] [phone] Asmita Davies M.D. [address] [place] [phone] 09/27/2024 1:00 PM BOILER OUT Office Visit [facility] in [place], [place] [address] [place] [phone] Oh Mckeon APRN, C.N.P., M.S.N. [address] [place] [phone] 10/18/2024 1:00 PM BOILER OUT Comprehensive Visit Department of Obstetrics and Gynecology in [place], [place] [address] [place] [phone] Teresa Espitia APRN, C.N.P., D.N.P. [address] [place] [phone] documented as of this encounter Visit Diagnoses Not on filedocumented in this encounter Additional Health Concerns Infection Onset Date Last Indicated Resolved Time COVID19 Pending 10/06/2020 10/06/2020 10/06/2020 6 :04 PM BOILER OUT documented as of this encounter Care Teams Networking Administrator Relationship Specialty Start Date End Date Elsewhere, Pcp PCP - General Internal Medicine 08/31/22 documented as of this encounter
== END 2024-09-10 17:15 | disposition home or self-care (01) ==
PROVIDERS: Emergency Provider Family Medicine
DX: M70.61 Trochanteric bursitis, right hip (principal)
CPT/HCPCS: 73502; 99283; 99284